=== PATIENT | female | born 1965 | race African-American/Black ===

== ENCOUNTER 2017-07-08 05:58 | Emergency (ER) | payer MEDICARE, MEDICAID ==
[2017-07-08 07:10] LABS: Hematocrit 31.7 % (36.0-47.0); Mean Platelet Volume 7.2 fL (7.4-10.4); Red Blood Cell (RBC) Count 3.58 mill/uL (4.20-5.40); White Blood Cell (WBC) Count 4.2 thou/uL (4.8-10.8)
[2017-07-08 07:24] LABS: ALT (SGPT) Less than 7 U/L (8-55); AST (SGOT) 10 U/L (5-34); Alkaline Phosphatase 59 U/L (40-150); Anion Gap 14 mmol/L (10-20); BUN (Urea Nitrogen) 12 mg/dL (9.8-20.1); Bilirubin, Total 0.4 mg/dL (0.2-1.2); Calc. Creatinine Clearance 0 mL/min (70-130); Calcium 9.2 mg/dL (7.8-10.44); Carbon Dioxide 26 mmol/L (22-29); Chloride 107 mmol/L (98-107); Estimated GFR-MDRD Greater than 90; Globulin 3.5 g/dL (2.4-3.5); Protein, Total 6.8 g/dL (6.0-8.3)
[2017-07-08 07:42] LABS: Band 3 % (5-11); Metamyelocyte 1 % (0-0); Myelocyte 1 % (0-0); Neutrophil 60 % (42-75); Polychromasia SLIGHT = 2-3 cells (100X) (0-2/hpf)
[2017-07-08] MEDS ORDERED: Ondansetron HCl/PF 4 MG/2 ML Vial ONE (08:47)
--- NOTE | 2017-07-08 08:55 | CT ---
CONTRAST ENHANCED CTA CHEST: HISTORY: A 52-year-old with a history of radiation treatment for breast cancer, lung mets, cough for 3 weeks. FINDINGS: Contrast-enhanced CTA of the chest was performed. Two-D and 3D reconstructed images performed. Images demonstrate diffuse increased interstitial markings in the right upper lobe. Area of nodular density previously seen in the right upper lobe is again seen. There is a soft tissue mass in the right hilar region measuring approximately 3.0 x 2.5 cm, definitely larger than on previous exam fro m 02/05/17 and similar but slightly smaller than on previous exam from 06/08/17. No evidence of filling defect is seen in the pulmonary arteries to suggest pulmonary emboli. A tiny pericardial effusion is seen. There is also a tiny right pleural effusion noted. IMPRESSION: No evidence of pulmonary emboli. POS: [facility]
[2017-07-08] MEDS ORDERED: HYDROcodone/Acetaminophen 10/325 mg Tablet ONE (09:02)
[2017-07-08] MEDS ORDERED: ISOVUE-370 76%-LOCM 1 ML ONE (14:24)
== END 2017-07-08 10:15 | disposition home or self-care (01) ==
LOC: ERS 05:58
DX: J20.9 Acute bronchitis, unspecified (principal); E11.9 Type 2 diabetes mellitus without complications; I10 Essential (primary) hypertension; F41.9 Anxiety disorder, unspecified; Z79.84 Long term (current) use of oral hypoglycemic drugs; Z79.899 Other long term (current) drug therapy
CPT/HCPCS: 71275; 77014; 77412; 80053; 85025; 96374; J2405

== ENCOUNTER 2017-08-23 08:26 | Outpatient (CLI) | payer MEDICARE, MEDICAID ==
--- NOTE | 2017-08-23 14:55 | CT ---
CHEST CT WITH CONTRAST ABDOMEN CT WITH CONTRAST: Date: 08/23/17 COMPARISON: 06/08/17 and 11/04/16. CORRELATION: CT angiogram chest dated 07/08/17. TECHNIQUE: Chest and abdomen CT are performed with IV contrast. Enteric contrast was also administered. Coronal reformatted images are submitted for interpretation. FINDINGS: CHEST CT: Limited evaluation by motion degradation. No mediastinal mass, lymphadenopathy, or hematoma. Heart s ize is within normal limits. No pericardial effusion. Visualized aorta has a normal caliber. No taarh aortic fat stranding. No evidence of axillary lymphadenopathy. Right breast augmentation is noted. Trachea and central bronchi are patent. Stable 5.0 mm nodule in the left lower lobe. No nodules or m asses in the left upper lobe. Previously noted right hilar mass has decreased in size. There is a spiculated nodule in the right u pper lobe which has decreased in size, currently measuring 0.8 cm (previously measuring 1.3 cm). The re are patchy linear opacities and ground-glass opacities in the right upper lobe, middle lobe, and lower lobe, likely representing post treatment change. There is evidence of a hypodensity tracking along the major fissure, likely representing a pseudotum or, measuring 2.6 x 2.8 cm. The previously noted soft tissue density in the right mainstem bronchus has slightly decreased. Ther e is still some narrowing of the distal right mainstem bronchus. ABDOMEN CT: Liver, spleen, pancreas, and right adrenal gland have appropriate enhancement. There is a nodule ass ociated with left adrenal gland. Nodularity has developed since examinations earlier this year ( [email or web address]). Gallbladder is surgically absent. Symmetric enhancement of the kidneys. No obstructive uropathy. No mesenteric mass, lymphadenopathy, free air, or free fluid. Alimentary canal is unremarkable. Normal caliber appendix. There are no lytic or blastic lesions in the osseous structures. IMPRESSION: 1. Interval decrease in size of a right hilar and mediastinal mass. There is improved aeration of t he previously obstructing right mainstem bronchus. Nodularity in the right and left lobe as detailed above. 2. Interval development of a nodule in the left adrenal gland, as detailed above. The possibility o f adrenal metastatic lesion cannot be excluded. PET imaging may be beneficial. POS: [facility]
[2017-08-23] MEDS ORDERED: Iopamidol 370 76% 50 ML VIAL FS ONE (15:43)
[2017-08-23] MEDS ORDERED: Iopamidol 370 76% 100 ML VIAL ONE (15:43)
== END 2017-08-23 08:27 | disposition home or self-care (01) ==
LOC: CT 08:26
PROVIDERS: ATTEND Internal Medicine Hematology & Oncology
DX: C50.311 Malignant neoplasm of lower-inner quadrant of right female breast (principal); C78.39 Secondary malignant neoplasm of other respiratory organs; Z85.3 Personal history of malignant neoplasm of breast
CPT/HCPCS: 71260; 74160

== ENCOUNTER 2017-10-28 10:39 | Emergency (ER) | payer MEDICARE ==
[2017-10-28 11:58] LABS: #Eosinphils 0.1 thou/uL (0.0-0.7); #Monocytes 0.6 thou/uL (0.11-0.59); #Neutrophils 4.5 thou/uL (1.40-6.50); %Basophils 0.5 % (0.0-1.0); %Lymphocytes 16.4 % (21.0-51.0); %Monocytes 9.4 % (0.0-10.0); %Neutrophils 72.8 % (42.0-75.0); Hemoglobin 10.5 g/dL (12.0-16.0); Mean Corpuscular HGB CONC 31.8 g/dL (32.0-36.0); Mean Corpuscular Hemoglobin 27.5 pg (27.0-31.0); Mean Corpuscular Volume 86.4 fl (81.0-99.0); Mean Platelet Volume 6.7 fL (7.4-10.4); Platelet Count 238 thou/uL (130-400); RBC Distribution Width 14.4 % (11.5-14.5); Red Blood Cell (RBC) Count 3.83 mill/uL (4.20-5.40); White Blood Cell (WBC) Count 6.2 thou/uL (4.8-10.8)
--- NOTE | 2017-10-28 12:10 | RAD ---
TWO VIEW CHEST: HISTORY: Chest pain. COMPARISON: Correlation is made to recent CT of 08/23/17. FINDINGS: The frontal view is distorted due to poor positioning and rotation. MediPort catheter remains in pos ition. There is abnormal opacity in the right mid posterior lung field which may correspond to the m ass density seen on recent CT of 08/23/17. I cannot exclude associated infiltrate in this region. The left lung appears clear. IMPRESSION: Opacity in the right mid posterior lung probably corresponds to the mass density seen on recent CT. New infiltrate in this region cannot be excluded. POS: [facility]
[2017-10-28 12:19] LABS: ALT (SGPT) 9 U/L (8-55); AST (SGOT) 14 U/L (5-34); Albumin 3.7 g/dL (3.5-5.0); Alkaline Phosphatase 80 U/L (40-150); Anion Gap 13 mmol/L (10-20); BUN (Urea Nitrogen) 12 mg/dL (9.8-20.1); Bilirubin, Total 0.3 mg/dL (0.2-1.2); Calc. Creatinine Clearance 0 mL/min (70-130); Calcium 9.3 mg/dL (7.8-10.44); Carbon Dioxide 23 mmol/L (22-29); Chloride 102 mmol/L (98-107); Estimated GFR-MDRD 89; Globulin 3.7 g/dL (2.4-3.5); Glucose 137 mg/dL (70-105); Protein, Total 7.4 g/dL (6.0-8.3); Sodium 134 mmol/L (136-145)
[2017-10-28 12:22] LABS: CKMB 0.9 ng/mL (0-6.6); Troponin I Less than 0.010 ng/mL (< 0.028)
[2017-10-28] MEDS ORDERED: Lorazepam 2 MG/ML VIAL ONE (13:31)
--- NOTE | 2017-10-28 15:00 | CT ---
CTA OF CHEST WITH 3D VOLUME RENDERING: Comparison: 08-23-17 CT chest. Indication: Chest pain. FINDINGS: There is extensive consolidation of the right lung with a dense region of opacity containing air bron chograms as well as multifocal surrounding interstitial and alveolar opacification of the right lung. There is no definite filling defect of the pulmonary arterial system to indicate an associated pulmo nary embolus. The prior rounded density of the right lung is obscured by the extensive region of cons olidation. There is confluent increased density of the mediastinum. Mild pericardial fluid is present . There is no evidence of a significant effusion or evidence of discrete pneumothorax. Right breast i mplant is present. The thoracic aorta is normal in caliber. There is a right internal jugular venous catheter. IMPRESSION: 1. Extensive consolidation of the right lung. This does obscure the site of patient's previously diag nosed mass. Therefore, continued follow up upon resolution of acute symptoms is necessary for continu ed evaluation as underlying malignancy is not excluded. 2. There is no large, central filling defect to indicate pulmonary embolus. 3. Mild pericardial effusion. POS: [facility]
[2017-10-28] MEDS ORDERED: ISOVUE-370 76%-LOCM 1 ML ONE (16:30)
--- NOTE | 2017-11-06 21:36 | EKG ---
Test Reason : Blood Pressure : / mmHG Vent. Rate : 093 BPM Atrial Rate : 093 BPM P-R Int : 130 ms QRS Dur : 066 ms QT Int : 366 ms P-R-T Axes : 026 033 027 degrees QTc Int : 455 ms Normal sinus rhythm Normal ECG Confirmed by PALAK SONG, SHAYE ([id number]), art editor KULDEEP PAUL ([id number]) on 11/06/2017 9:36:08 PM Referred By: Confirmed By:SHAYE CID MD
== END 2017-10-28 15:32 | disposition home or self-care (01) ==
LOC: ERS 10:39
DX: R07.9 Chest pain, unspecified (principal); F41.9 Anxiety disorder, unspecified; I11.0 Hypertensive heart disease with heart failure; I50.9 Heart failure, unspecified; Z79.899 Other long term (current) drug therapy; E11.9 Type 2 diabetes mellitus without complications; Z79.84 Long term (current) use of oral hypoglycemic drugs
CPT/HCPCS: 36416; 71046; 71275; 80053; 82553; 83880; 84484; 85025; 85379; 93005; 96374; J2060

== ENCOUNTER 2017-11-18 09:42 | Emergency (ER) | payer MEDICARE, MEDICAID ==
[2017-11-18] MEDS ORDERED: Lidocaine 1% w/Epinephrine 1:100K 20 ML VIAL ONE (10:28)
[2017-11-18] MEDS ORDERED: Amoxicillin/Potassium Clav 875 MG TAB ONE (11:38)
== END 2017-11-18 11:47 | disposition home or self-care (01) ==
LOC: SCSER 09:42
DX: L02.213 Cutaneous abscess of chest wall (principal); E11.9 Type 2 diabetes mellitus without complications; I10 Essential (primary) hypertension; F41.9 Anxiety disorder, unspecified
CPT/HCPCS: 10060; 88305; 88341; 88342; J2001

== ENCOUNTER 2017-11-19 10:46 | Emergency (ER) | payer MEDICARE, MEDICAID | END 2017-11-19 11:50 | disposition home or self-care (01) | LOC: SCSER 10:46 | DX: Z48.817 Encounter for surgical aftercare following surgery on the skin and subcutaneous tissue (principal); E11.9 Type 2 diabetes mellitus without complications; I10 Essential (primary) hypertension; F41.9 Anxiety disorder, unspecified | CPT/HCPCS: 99282 ==

== ENCOUNTER 2017-11-21 22:36 | Emergency (ER) | payer MEDICARE, MEDICAID ==
--- NOTE | 2017-11-21 23:27 | RAD ---
CHEST TWO VIEWS: Comparison: 10-28-17 History: Cough and congestion. FINDINGS: Right sided Mediport catheter is again noted. Elevation of the right hemidiaphragm and pleural and pa renchymal changes in the right lung are stable. IMPRESSION: No acute process. POS: [facility]
[2017-11-21 23:41] LABS: ALT (SGPT) 8 U/L (8-55); AST (SGOT) 11 U/L (5-34); Albumin 3.6 g/dL (3.5-5.0); Alkaline Phosphatase 83 U/L (40-150); Anion Gap 14 mmol/L (10-20); BUN (Urea Nitrogen) 15 mg/dL (9.8-20.1); Bilirubin, Total 0.3 mg/dL (0.2-1.2); CK (CPK) 86 U/L (29-168); Calc. Creatinine Clearance 0 mL/min (70-130); Calcium 9.4 mg/dL (7.8-10.44); Carbon Dioxide 26 mmol/L (22-29); Chloride 98 mmol/L (98-107); Estimated GFR-MDRD 90; Glucose 76 mg/dL (70-105); Protein, Total 7.6 g/dL (6.0-8.3); Sodium 135 mmol/L (136-145)
[2017-11-21 23:49] LABS: Eosinophils 1 % (0-10); Hemoglobin 10.8 g/dL (12.0-16.0); Lymphocytes 30 % (21-51); MDiff Complete? YES; Mean Corpuscular HGB CONC 33.2 g/dL (32.0-36.0); Mean Corpuscular Hemoglobin 29.2 pg (27.0-31.0); Mean Corpuscular Volume 87.9 fl (81.0-99.0); Mean Platelet Volume 6.4 fL (7.4-10.4); Metamyelocyte 1 % (0-0); Monocytes 16 % (0-10); Neutrophil 52 % (42-75); PLT Morphology Comment Appears Adequate; Platelet Count 237 thou/uL (130-400); RBC Distribution Width 13.5 % (11.5-14.5); Red Blood Cell (RBC) Count 3.69 mill/uL (4.20-5.40); White Blood Cell (WBC) Count 7.8 thou/uL (4.8-10.8)
[2017-11-22 00:05] LABS: Bilirubin Negative (Negative); Blood, Urine Negative (Negative); Clarity CLEAR (Clear); Glucose, Urine (Dipstick) Negative (Negative); Leukocyte Negative (Negative); Nitrite Negative (Negative); Protein, Urine (Dipstick) Negative (Neg-Trace); Specific Gravity, Urine 1.009 (1.002-1.036); Urobilinogen 0.2 mg/dL (0.2-1.0)
[2017-11-22] MEDS ORDERED: Potassium Chloride 20 MEQ TAB ONE (00:34)
== END 2017-11-22 02:22 | disposition home or self-care (01) ==
LOC: ERS 22:36
DX: R05 Cough (principal); R55 Syncope and collapse; E11.9 Type 2 diabetes mellitus without complications; I10 Essential (primary) hypertension; F41.9 Anxiety disorder, unspecified; Z79.891 Long term (current) use of opiate analgesic; Z79.84 Long term (current) use of oral hypoglycemic drugs
CPT/HCPCS: 36415; 71046; 80053; 81003; 82550; 84146; 85025; 93005; 96360; 96361

== ENCOUNTER 2017-11-23 08:05 | Outpatient (CLI) | payer MEDICARE, MEDICAID ==
--- NOTE | 2017-11-23 10:22 | CT ---
CT CHEST WITH IV CONTRAST CT ABDOMEN WITH IV CONTRAST CT PELVIS WITH IV CONTRAST: HISTORY: Breast cancer with lung mets. COMPARISON: CT chest, abdomen, and pelvis dated 08/23/[address] pulmonary angiogram of 10/28/17. FINDINGS: No mediastinal, axillary, or left hilar significant lymphadenopathy is seen. There is consolidative change in the right lung which is stable since 10/28/16. The 5 mm parenchymal nodule in the superior segment of the left lower lobe is stable since 10/28/17, t sigrid new since 08/23/17. No pleural or pericardial effusions are identified. Right-sided breast im plant is again noted. The small soft tissue nodule anterior to the sternum noted on the exam of 10/28 is not seen on the current exam. On the current study in the same region, there is a 5 x 2.6 x 4 .5 cm density containing air, soft tissue, and a small amount of fluid which connects to the skin. T here is surrounding inflammatory change in the subcutaneous fat. This may represent an abscess (with and without packing material). The liver, spleen, pancreas, right adrenal gland, and kidneys are normal. The 1.5 cm left adrenal no dule is stable since 08/23/17. The patient is post cholecystectomy. No free air, free fluid, or lym phadenopathy is seen in the abdomen or pelvis. The small bowel loops are not abnormally dilated. There is no evidence of aneurysmal dilatation of t he thoracoabdominal aorta. There are degenerative changes in the spine. No osteolytic or osteoblast ic lesions are seen. IMPRESSION: 1. Probable abscess in the subcutaneous fat of the presternal region in the chest. 2. Consolidative changes in the right lung and lung nodule in the left lung are stable since 10/28/17 . 3. Stable appearance of the abdomen and pelvis since 08/23/17. Report was called over the telephone to Dr. Adelaida Tay at 9:20 a.m. CODE CR POS: [facility]
[2017-11-23] MEDS ORDERED: ISOVUE-370 76%-LOCM 1 ML ONE (12:38)
== END 2017-11-23 08:06 | disposition home or self-care (01) ==
LOC: CT 08:05
PROVIDERS: ATTEND Internal Medicine Hematology & Oncology
DX: C78.39 Secondary malignant neoplasm of other respiratory organs (principal); C50.919 Malignant neoplasm of unspecified site of unspecified female breast; R91.8 Other nonspecific abnormal finding of lung field
CPT/HCPCS: 71260; 74177

== ENCOUNTER 2017-12-02 11:29 | Outpatient (CLI) | payer MEDICARE, MEDICAID ==
--- NOTE | 2017-12-02 12:58 | MRI ---
MRI BRAIN WITH AND WITHOUT CONTRAST: Technique: Multiplanar, multisequential imaging of brain obtained. Post contrast images were obtained after administration of 18 cc MultiHance IV. History: Breast cancer. New onset headaches. Intermittent confusion. Assess for metastasis. Comparison: MRI brain dated 04-28-15. That exam showed no abnormality. FINDINGS: On today's exam, the ventricles remain normal size and position. There is abnormal vasogenic edema no ariel in the right parietal lobe and right temporal lobe on the FLAIR sequence. No evidence of restrict ed diffusion. On post contrast images, there is an enhancing mass in the posterior right parietal lobe which measur es 3.2 cm in AP dimension. This is producing significant surrounding vasogenic edema as seen on FLAIR sequence. There is a second enhancing mass in the peripheral right temporal lobe measuring 1.3 cm in AP dimensi on. This produces mild surrounding edema as seen on FLAIR sequence. There is another tiny enhancing nodule in the superior right frontal lobe measuring 5 mm. No signific ant edema is associated with this tiny nodule. Arterial structures show normal flow voids. The nasal sinuses and mastoids appear clear. IMPRESSION: There are three enhancing masses seen in the right cerebral hemisphere consistent with metastasis. Th e largest in the right parietal lobe is associated with significant surrounding vasogenic edema. The middle sized lesion in the right temporal lobe also shows mild surrounding edema as described above. POS: [facility]
== END 2017-12-02 11:30 | disposition home or self-care (01) ==
LOC: MRI 11:29
PROVIDERS: ATTEND Radiology Radiation Oncology
DX: C50.919 Malignant neoplasm of unspecified site of unspecified female breast (principal); R51 Headache; G93.6 Cerebral edema; G93.89 Other specified disorders of brain
CPT/HCPCS: 70553; J1642

== ENCOUNTER 2017-12-05 15:10 | Emergency (ER) | payer MEDICARE, MEDICAID ==
[~2017-12-05 15:10] MED LIST: ISOVUE-370 76%-LOCM 1 ML ONE
--- NOTE | 2017-12-05 18:59 | RAD ---
PORTABLE CHEST; Date: 12/05/17 HISTORY: Chest pain. Cough. Comparison made to recent chest film of 11/21/[address] of 11/23/17. FINDINGS: Infiltrate in the right mid lung is again noted and was seen on chest film which suggested infectious or inflammatory infiltrate. There is shift of the mediastinum to the right, also indicating volume l oss. This is also a stable finding. The left lung remains clear. IMPRESSION: Right lung infiltrate and shift of mediastinum to the right. There has been no significant interval c hange when compared to the recent CT of 11/23/17. POS: [facility]
[2017-12-05 19:09] LABS: #Monocytes 0.4 thou/uL (0.11-0.59); #Neutrophils 5.4 thou/uL (1.40-6.50); %Basophils 0.1 % (0.0-1.0); %Eosinophils 0.2 % (0.0-10.0); %Lymphocytes 14.7 % (21.0-51.0); %Monocytes 5.8 % (0.0-10.0); %Neutrophils 79.2 % (42.0-75.0); Hemoglobin 11.4 g/dL (12.0-16.0); Mean Corpuscular HGB CONC 32.7 g/dL (32.0-36.0); Mean Corpuscular Hemoglobin 28.8 pg (27.0-31.0); Mean Corpuscular Volume 88.1 fl (81.0-99.0); Platelet Count 316 thou/uL (130-400); RBC Distribution Width 13.1 % (11.5-14.5); Red Blood Cell (RBC) Count 3.95 mill/uL (4.20-5.40); White Blood Cell (WBC) Count 6.8 thou/uL (4.8-10.8)
[2017-12-05 19:16] LABS: INR-International Normal Ratio 1.1; PTT 29.8 SEC (22.9-36.1); Prothrombin Time 14.1 SEC (12.0-14.7)
[2017-12-05 19:17] LABS: D-Dimer Test 0.4 *mcg/mL (0.27-0.43)
[2017-12-05] MEDS ORDERED: Lorazepam 2 MG/ML VIAL ONE (19:23)
[2017-12-05] MEDS ORDERED: Metoclopramide HCl 10 MG/2 ML VIAL ONE (19:24)
[2017-12-05] MEDS ORDERED: diphenhydrAMINE 50 MG/ML VIAL ONE (19:24)
[2017-12-05 19:32] LABS: ALT (SGPT) 10 U/L (8-55); AST (SGOT) 11 U/L (5-34); Albumin 3.9 g/dL (3.5-5.0); Alkaline Phosphatase 88 U/L (40-150); Anion Gap 15 mmol/L (10-20); BUN (Urea Nitrogen) 27 mg/dL (9.8-20.1); Bilirubin, Total 0.2 mg/dL (0.2-1.2); Calc. Creatinine Clearance 0 mL/min (70-130); Calcium 9.9 mg/dL (7.8-10.44); Carbon Dioxide 23 mmol/L (22-29); Chloride 99 mmol/L (98-107); Estimated GFR-MDRD 56; Globulin 4.1 g/dL (2.4-3.5); Glucose 153 mg/dL (70-105); Lipase 26 U/L (8-78); Potassium 3.8 mmol/L (3.5-5.1); Sodium 133 mmol/L (136-145)
--- NOTE | 2017-12-05 22:37 | CT ---
CT PULMONARY ANGIO CHEST WITH IV CONTRAST: Date: 12/05/17 Multiple axial tomograms obtained through the chest with IV enhancement in pulmonary angio phase with multiplanar reconstruction and 3D postprocessing. HISTORY: Headache, chest pain, and cough. Comparison made to recent CT angio chest of 10/28/17. The exam revealed extensive consolidation in th e right lung. FINDINGS: Pulmonary arteries are well opacified. No evidence of pulmonary embolus. There continues to be dense consolidation in the right upper lobe with involvement also seen in the r ight lower lobe and probable middle lobe. Shift of the mediastinum to the right may represent prior l obectomy procedure. Confluent density in the right hilar region may be due to infiltrate or neoplasm. The right lung findings have not significantly changed when compared to the 10/28/17 exam. Left otoniel r lymph nodes are mildly prominent and also stable. Right deformities seen on the right are consistent with old fractures and/or surgery. IMPRESSION: 1. Volume loss in the right lung with shift of the mediastinum to the right. Confluent consolidation in the right mid lung extending to the right hilum is again noted, unchanged from 10/28/17. 2. No evidence of pulmonary embolus. POS: [facility]
== END 2017-12-05 22:56 | disposition home or self-care (01) ==
LOC: ERS 15:10
DX: R51 Headache (principal); R07.9 Chest pain, unspecified; G89.29 Other chronic pain; E11.9 Type 2 diabetes mellitus without complications; I10 Essential (primary) hypertension; F41.9 Anxiety disorder, unspecified; Z79.84 Long term (current) use of oral hypoglycemic drugs; Z79.899 Other long term (current) drug therapy
CPT/HCPCS: 36415; 71045; 71275; 80053; 83690; 85025; 85379; 85610; 85730; 96365; 96375; J1200; J1642; J2060; J2765

== ENCOUNTER 2017-12-22 11:35 | Inpatient (IN) | payer MEDICARE, MEDICAID ==
--- NOTE | 2017-12-22 13:05 | RAD ---
AP CHEST: History: Cough. Hypotension. Date: 12-22-17 Comparison: 12-05-17 FINDINGS: AP chest demonstrates volume loss in the right hemithorax with shift of the mediastinum from left to right. Areas of scarring seen in the right midlung. A right subclavian Mediport catheter is in place. The left lung is well aerated. IMPRESSION: Stable area of scar or opacity in the right midlung, not significantly changed since the previous exa m from 12-05-17. No acute interval changes or abnormalities seen. POS: [facility]
[2017-12-22 13:20] LABS: Bilirubin Negative (Negative); Blood, Urine Negative (Negative); Glucose, Urine (Dipstick) Negative (Negative); Leukocyte Trace (Negative); Nitrite Negative (Negative); Protein, Urine (Dipstick) Negative (Neg-Trace); Urobilinogen 0.2 mg/dL (0.2-1.0)
[2017-12-22 13:22] LABS: Clarity CLEAR (Clear)
[2017-12-22 13:23] LABS: Other Microscopic Description Less than 2 mL rec'd
[2017-12-22 13:36] LABS: #Eosinphils 0.1 thou/uL (0.0-0.7); #Lymphocytes 1.4 thou/uL (1.20-3.40); #Monocytes 1.3 thou/uL (0.11-0.59); #Neutrophils 9.4 thou/uL (1.40-6.50); %Basophils 0.2 % (0.0-1.0); %Eosinophils 1.2 % (0.0-10.0); %Lymphocytes 11.4 % (21.0-51.0); %Monocytes 10.7 % (0.0-10.0); %Neutrophils 76.5 % (42.0-75.0); Hemoglobin 12.3 g/dL (12.0-16.0); Mean Corpuscular HGB CONC 32.4 g/dL (32.0-36.0); Mean Corpuscular Hemoglobin 29.1 pg (27.0-31.0); Mean Corpuscular Volume 89.7 fl (81.0-99.0); Mean Platelet Volume 6.6 fL (7.4-10.4); Platelet Count 198 thou/uL (130-400); RBC Distribution Width 15.4 % (11.5-14.5); Red Blood Cell (RBC) Count 4.25 mill/uL (4.20-5.40); White Blood Cell (WBC) Count 12.2 thou/uL (4.8-10.8)
[2017-12-22 13:59] LABS: ALT (SGPT) 22 U/L (8-55); AST (SGOT) 14 U/L (5-34); Albumin 3.1 g/dL (3.5-5.0); Alkaline Phosphatase 90 U/L (40-150); Anion Gap 13 mmol/L (10-20); BUN (Urea Nitrogen) 25 mg/dL (9.8-20.1); Bilirubin, Total 0.3 mg/dL (0.2-1.2); Calc. Creatinine Clearance 0 mL/min (70-130); Carbon Dioxide 24 mmol/L (22-29); Chloride 100 mmol/L (98-107); Estimated GFR-MDRD 65; Globulin 3.2 g/dL (2.4-3.5); Glucose 94 mg/dL (70-105); Lipase 23 U/L (8-78); Magnesium 2.2 mg/dL (1.6-2.6); Potassium 4.7 mmol/L (3.5-5.1); Protein, Total 6.3 g/dL (6.0-8.3); Sodium 132 mmol/L (136-145)
[2017-12-22 14:03] LABS: CKMB 1.4 ng/mL (0-6.6)
[2017-12-22 14:09] LABS: Troponin I Less than 0.010 ng/mL (< 0.028)
[2017-12-22] MEDS ORDERED: Lorazepam 0.5 MG TAB PO SCH (15:45)
[2017-12-22] MEDS ORDERED: HYDROcodone/Acetaminophen 10/325 mg Tablet ONE (16:09)
[2017-12-22] MEDS ORDERED: ISOVUE-370 76%-LOCM 1 ML ONE (16:35)
[2017-12-22 18:27] LABS: Troponin I 0.302 ng/mL (< 0.028)
[2017-12-22] MEDS ORDERED: Dextrose 50% Abboject 50 ML SYRINGE SLOW IVP PRN (18:56)
[2017-12-22] MEDS ORDERED: Dextrose 5% in Water 1,000 ML IV PRN (18:56)
[2017-12-22] MEDS ORDERED: Famotidine/PF 20 mg/2ml Vial SLOW IVP SCH (21:00)
[2017-12-22 21:19] LABS: Troponin I Less than 0.010 ng/mL (< 0.028)
--- NOTE | 2017-12-22 22:38 | CT ---
CT CHEST WITH CONTRAST CT ABDOMEN AND PELVIS WITH CONTRAST 12/22/17 Multiple axial tomograms obtained through the chest, abdomen and pelvis with IV enhancement. Oral con trast was administered. INDICATIONS: Chest pain. Assess for aortic dissection. Generalized abdominal pain with nausea. CT CHEST: There is confluent alveolar infiltrate/consolidation involving what appears to be the posterior segme nt of the right upper lobe. There may be some right middle lobe involvement as well. There are air br onchograms through this area of dense consolidation. Shift of the mediastinum to the right is consist ent with volume loss in the right chest. The left lung appears clear. Mediastinum is otherwise unrema rkable. There is a right breast prosthesis. IMPRESSION: Dense infiltrate and atelectasis involving posterior right upper lobe and possibly portions of the ri ght middle lobe. Pneumonia and atelectasis would be suspected. There is shift of the mediastinum to the right indicating volume loss. CT ABDOMEN AND PELVIS: Liver, spleen, and pancreas are unremarkable. Adrenal glands and kidneys unremarkable. Small bowel loops appear normal. Appendix is identified and appears unremarkable. The thoracic and abdominal aorta appear unremarkable . There is no evidence of aortic dissection. No evidence of aneurysmal dilatation. No evidence of adenopathy. Images through the pelvis show unremarkable uterus and adnexa. The urinary bladder is mildly distended. IMPRESSION: No acute abdominal findings. POS: [facility]
[2017-12-22] MEDS: metroNIDAZOLE 500 MG in Premix Bag 1 BAG IVPB SCH (23:11)
[2017-12-22] MEDS: Heparin 5,000 UNITS/ML VIAL SC SCH (23:11)
[2017-12-23] MEDS ORDERED: Sodium Chloride 0.9% 1,000 ML IV SCH (01:30)
[2017-12-23] MEDS: metroNIDAZOLE 500 MG in Premix Bag 1 BAG IVPB SCH ×2 (03:04→08:31)
[2017-12-23 05:24] LABS: Hemoglobin A1c 5.4 % (4.0-6.0)
[2017-12-23 05:37] LABS: #Eosinphils 0.1 thou/uL (0.0-0.7); #Lymphocytes 0.9 thou/uL (1.20-3.40); #Monocytes 1.2 thou/uL (0.11-0.59); #Neutrophils 8.4 thou/uL (1.40-6.50); %Basophils 0.4 % (0.0-1.0); %Eosinophils 0.8 % (0.0-10.0); %Monocytes 11.6 % (0.0-10.0); %Neutrophils 79.2 % (42.0-75.0); Hemoglobin 10.3 g/dL (12.0-16.0); Mean Corpuscular HGB CONC 31.4 g/dL (32.0-36.0); Mean Corpuscular Hemoglobin 28.6 pg (27.0-31.0); Mean Corpuscular Volume 91.1 fl (81.0-99.0); Mean Platelet Volume 6.6 fL (7.4-10.4); Platelet Count 159 thou/uL (130-400); RBC Distribution Width 15.5 % (11.5-14.5); Red Blood Cell (RBC) Count 3.61 mill/uL (4.20-5.40); White Blood Cell (WBC) Count 10.7 thou/uL (4.8-10.8)
[2017-12-23 05:52] LABS: Anion Gap 14 mmol/L (10-20); BUN (Urea Nitrogen) 14 mg/dL (9.8-20.1); Calc. Creatinine Clearance 108 mL/min (70-130); Calcium 8.2 mg/dL (7.8-10.44); Carbon Dioxide 20 mmol/L (22-29); Chloride 106 mmol/L (98-107); Estimated GFR-MDRD 84; Glucose 232 mg/dL (70-105); Potassium 4.9 mmol/L (3.5-5.1); Sodium 135 mmol/L (136-145)
[2017-12-23] MEDS: Heparin 5,000 UNITS/ML VIAL SC SCH ×3 (08:32→20:25)
--- NOTE | 2017-12-23 09:13 | HP ---
CHIEF COMPLAINT: Hypoglycemia. HISTORY OF PRESENT ILLNESS: This is a 52-year-old female with a known history of diabetes, hyperlipidemia, hypertension, metastatic breast cancer, currently undergoing radiation, who presented with a chief complaint of hypoglycemia. It appears that the patient checked her blood sugar upon awakening this morning and found it to be 40. She subsequently went to see her primary care provider and was sent from that facility to our emergency department because she was also noted to be hypotensive with systolic blood pressures in the 70s. At the time of my evaluation, the patient has been seen and evaluated in the Emergency Department. Her blood sugar has been corrected with amps of D50. She has also been bolused 2 liters IV fluid with now systolic blood pressures in the 90s-110s. The patient states that she currently feels a lot better. She describes feeling "woozy and crushed" with her low blood sugar and low blood pressure. The patient denies any prior similar episodes. The patient also endorses a sudden onset of abdominal pain that then was accompanied by chest pain as well during this initial episode. She still has some abdominal discomfort, but it is nothing like the initial pain described above. REVIEW OF SYSTEMS: As per HPI. CONSTITUTIONAL: No recent fevers, chills. The patient states that she has had a 30 pound weight loss over the last 1-2 years, but none within the last 2-3 weeks. HEENT: As per above. The patient states that she has known brain tumors and that is why she has difficult to understand speech which is often stuttering. Otherwise no headaches, dizziness or vision changes. CARDIOVASCULAR: As described above. No left-sided arm numbness or tingling. She describes it as a substernal pressure without diaphoresis. RESPIRATORY: Some shortness of breath, only with the pain. Currently, the patient denies any active shortness of breath. No new recent cough, no recent upper respiratory infection. GASTROINTESTINAL: No nausea, no vomiting. The patient has been having a retained appetite. No recent difficulties with appetite, diarrhea or constipation. Abdominal pain is improved, but she has not needed to evacuate her bowels for the improvement. MUSCULOSKELETAL: No new myalgias or arthralgias. Review of systems otherwise negative. PAST MEDICAL HISTORY: As per above. 1. Diabetes. 2. Hypertension. 3. Obesity. 4. Breast cancer with metastases including to her brain x3. 5. Status post mastectomy of right breast. 6. Status post radiation 2018 this year. 7. Status post chemotherapy, the last dose in 2017. PAST SURGICAL HISTORY: Status post cholecystectomy, status post hysterectomy, status post MediPort placement, status post "bladder repair" 2 years ago, status post hernia repair x2. FAMILY HISTORY: Includes diabetes, hypertension, coronary artery disease. SOCIAL HISTORY: No alcohol, no tobacco, no illicit drug use. CODE STATUS: This patient states that her "baby sister" is her medical decision maker if she is unable to make her own medical decisions. She states that she wishes to be full code including CPR, ventilation if required, and shocks. She does state that she would not want to be "maintained on a ventilator" and that her younger sister is aware of this. HOME MEDICATIONS: Please see the EMR for full details. The patient denies any changes in her home medication regimen over the last month. Denies any changes or additions or subtractions of any [id number], herbal supplements, vitamins that she has listed. ALLERGIES: GADOLINIUM which causes a mild degree of emesis. PHYSICAL EXAMINATION: VITAL SIGNS: Temperature of 100.1, heart rate of 106, respirations 24, satting 96% on room air, blood pressure 112/57. GENERAL: The patient is awake, alert, oriented x3, no acute distress, lying in the bed. She is a reasonable historian; however, she is at times very difficult to understand because of her stuttering speech which the patient states is secondary to her known brain tumors. HEENT: Slightly dry mucous membranes. Equal ocular motions are intact. Normocephalic, atraumatic. CARDIOVASCULAR: S1, S2. No murmurs, rubs or gallops. Generally soft heart tones. Pulses 2+ bilateral upper extremities, no pitting pedal edema. RESPIRATORY: No wheezes, rales or rhonchi, clear to auscultation bilaterally. Marginal air movement. ABDOMEN: Obese, positive bowel sounds, soft, tender to palpation throughout without focality. No guarding. MUSCULOSKELETAL: Moving all 4 extremities equally. LABORATORY DATA AND IMAGING: WBC 12.2, hemoglobin 12.3, hematocrit 38.1, platelets 198. Sodium 132, potassium 4.7, chloride 100, bicarbonate 24, BUN 25 , creatinine 1.07, glucose 94. Hemoglobin A1c is 5.4. Lactic acid 1.6, magnesium 2.2, total bilirubin 0.3, AST 14, ALT 22. CK-MB is 1.4. Troponins initial 0.01, troponin secondary is 0.302. BNP natriuretic peptide is 49.4. Lipase was 23. UA is significant for trace leukocyte esterase. ASSESSMENT AND PLAN: A 52-year-old female who initially presents with abdominal pain, hypotension, and hypoglycemia, all of acute onset. 1. Hypoglycemia, symptomatic. The patient will need to be closely monitored in terms of her glucose levels and D5 if needed and an amp of D50 as needed, initiate hypoglycemia protocol. Hold patient's home anti-hyperglycemic regimen. 2. Hypotension, resolved status post IV fluid bolus. I will continue to hold the patient's home antihypertensive regimen. Close monitoring as well. 3. Abdominal pain, unclear how these are all currently correlated. We will obtain a CT of the abdomen given the concomitant hypoglycemia and hypotension. We will also rule out dissection in this female who does have risk factors. Also, concern for possibility of colitis particularly in the setting of an elevated white count and elevated body temperature with empiric ciprofloxacin, empiric metronidazole. 4. Elevated troponin. Initial troponin was negative. Second troponin was elevated. We will continue to trend the troponins. EKG has been unremarkable and does not signify any changes consistent with a STEMI at this point in time. Echocardiogram in the morning. Currently, she is hemodynamically stable. 5. History of breast cancer with metastases to the brain, unclear the degree of contribution to her current presentation. That being said, the patient states that she was previously on steroids that she states for approximately 1 week, but she has been off of those steroids for a week. While it would be somewhat abnormal for her to present today with adrenal insufficiency, will go ahead and check an a.m. cortisol in case that is related to her presentation. 6. Diet. Cardiac. 7. Activity: Out of bed as tolerated. 8. Deep venous thrombosis prophylaxis, heparin. We will admit the patient to Medical/Surgical with telemetry. Thank you for asking me to care for the patient. She will be full code as discussed above. With questions or concerns, please contact me at [facility]. RITA
[2017-12-23] MEDS: HYDROcodone/Acetaminophen 10/325 mg Tablet PO PRN ×2 (09:44→20:24)
[2017-12-23] MEDS: Famotidine 40 MG/4 ML VIAL SLOW IVP SCH ×2 (09:54→23:55)
[2017-12-23] MEDS: metFORMIN 500 MG TAB PO SCH (16:16)
[2017-12-23] MEDS: Diabetic Tussin 200 MG/10 ML UDCUP PO PRN ×2 (17:21→20:25)
[2017-12-23] MEDS: Lorazepam 0.5 MG TAB PO PRN (23:47)
--- NOTE | 2017-12-23 23:48 | PDOC.PN ---
- Subjective Encounter Start Date: 12/23/17 Encounter Start Time: 14:00 Subjective: nsg notes rev, leandro ovn, pt no new c/o, pain improved, dtr at bedside -: still c/o cough but abd no longer painful - Objective Resuscitation Status: Resuscitation Status FULL:Full Resuscitation Vital Signs & Weight: Vital Signs (12 hours) Temp Pulse Resp BP Pulse Ox 12/23/17 20:00 99.4 F 115 H 22 H 113/71 98 12/23/17 15:35 98.8 F 91 22 H 105/58 L 98 Weight Admit Weight 199 lb 6.4 oz Weight 199 lb 12.8 oz I&O: 12/22/17 12/23/17 12/24/17 06:59 06:59 06:59 Intake Total 600 Balance 600 Result Diagrams: 12/24/17 04:45 12/24/17 04:45 Additional Labs: Accuchecks 12/23/17 12/23/17 12/23/17 22:04 20:03 18:49 POC Glucose 233 H 290 H 225 H 12/23/17 12/23/17 12/23/17 16:42 14:05 09:59 POC Glucose 232 H 287 H 284 H 12/23/17 12/23/17 12/23/17 08:23 05:51 03:40 POC Glucose 263 H 242 H 203 H 12/23/17 01:17 POC Glucose 187 H Phys Exam - Physical Examination Constitutional: NAD HEENT: moist MMs, sclera anicteric Neck: no nodes Respiratory: no wheezing, no rales, no rhonchi, clear to auscultation bilateral Cardiovascular: RRR, no significant murmur, no rub Gastrointestinal: soft, non-tender, positive bowel sounds Musculoskeletal: pulses present Neurological: moves all 4 limbs Psychiatric: normal affect, A&O x 3 Dx/Plan - Plan hypoglycemia * resolved, resume home antihypeglycemia regimen hypotension * resolved with IVF * continue home antihypertensive regimen sepsis on adm, resolved * no evid of intra-abd infection; empiric metronidazole, ciprofloxacin d/c'd * imaging does demonstrate potential PNA - trial oral levaquin * with symptomatic treatment of cough hx breast ca with mets incl mets to brain, stable diet: diabetic activit: as madhu dvt pp d/w pt possible d/c planning if continued stability and ability to tolerate home regimen and new abx Review of Systems - Medications/Allergies Allergies/Adverse Reactions: Allergies Allergy/AdvReac Type Severity Reaction Status Date / Time Gadolinium-Containing AdvReac Mild Emesis Verified 12/02/17 12:33 Contrast Medi Medications: Current Medications Hydrocodone Bitart/Acetaminophen ([place] 10/325) 2 tab PO Q4H PRN PRN Reason: Pain Last Admin: 12/23/17 09:44 Dose: 2 tab Hydrocodone Bitart/Acetaminophen ([place] 10/325) 2 tab PO QID PRN PRN Reason: Pain Last Admin: 12/24/17 02:34 Dose: 2 tab Cyclobenzaprine HCl (Flexeril) 10 mg PO TID PRN PRN Reason: Pain Dextrose/Water (Dextrose 50%) 25 gm SLOW IVP PRN PRN PRN Reason: Hypoglycemia Famotidine (Pepcid) 20 mg SLOW IVP Q12HR [facility] Last Admin: 12/23/17 23:55 Dose: Not Given Glipizide (Glucotrol Xl) 5 mg PO BID [facility] Last Admin: 12/23/17 20:25 Dose: 5 mg Glucagon (Glucagon) 1 mg IM PRN PRN PRN Reason: Hypoglycemia Guaifenesin (Robitussin Sf) 200 mg PO Q4H PRN PRN Reason: Cough Last Admin: 12/24/17 02:34 Dose: 200 mg Lisinopril/HCTZ (Prinizide 20-25) 1 tab PO DAILY [facility] Heparin Sodium (Porcine) (Heparin) 5,000 units SC TID [facility] Last Admin: 12/23/17 20:25 Dose: 5,000 units Dextrose/Water (D5w) 1,000 mls @ 0 mls/hr IV .Q0M PRN; As Directed PRN Reason: Hypoglycemia Letrozole (Femara) 2.5 mg PO DAILY [facility] Levofloxacin (Levaquin) 500 mg PO 0600 [facility] Last Admin: 12/24/17 06:37 Dose: 500 mg Lorazepam (Ativan) 0.5 mg PO TIDPRN PRN PRN Reason: Anxiety Last Admin: 12/23/17 23:47 Dose: 0.5 mg Metformin HCl (Glucophage) 500 mg PO BID-[facility] Last Admin: 12/23/17 16:16 Dose: 500 mg Sodium Chloride (Flush - Normal Saline) 10 ml IVF Q12HR [facility] Last Admin: 12/23/17 23:55 Dose: 10 ml Sodium Chloride (Flush - Normal Saline) 10 ml IVF PRN PRN PRN Reason: Saline Flush
[2017-12-24] MEDS: Diabetic Tussin 200 MG/10 ML UDCUP PO PRN ×3 (02:34→16:29)
[2017-12-24] MEDS: HYDROcodone/Acetaminophen 10/325 mg Tablet PO PRN ×4 (02:34→20:52)
[2017-12-24 05:37] LABS: #Eosinphils 0.1 thou/uL (0.0-0.7); #Monocytes 0.7 thou/uL (0.11-0.59); #Neutrophils 5.8 thou/uL (1.40-6.50); %Basophils 0.1 % (0.0-1.0); %Eosinophils 1.7 % (0.0-10.0); %Lymphocytes 12.7 % (21.0-51.0); %Monocytes 8.9 % (0.0-10.0); %Neutrophils 76.5 % (42.0-75.0); Hemoglobin 10.6 g/dL (12.0-16.0); Mean Corpuscular HGB CONC 31.8 g/dL (32.0-36.0); Mean Corpuscular Hemoglobin 28.9 pg (27.0-31.0); Mean Corpuscular Volume 90.9 fl (81.0-99.0); Platelet Count 162 thou/uL (130-400); RBC Distribution Width 14.9 % (11.5-14.5); Red Blood Cell (RBC) Count 3.66 mill/uL (4.20-5.40); White Blood Cell (WBC) Count 7.6 thou/uL (4.8-10.8)
[2017-12-24 05:47] LABS: Anion Gap 12 mmol/L (10-20); BUN (Urea Nitrogen) 14 mg/dL (9.8-20.1); Calc. Creatinine Clearance 124 mL/min (70-130); Calcium 8.7 mg/dL (7.8-10.44); Carbon Dioxide 24 mmol/L (22-29); Chloride 102 mmol/L (98-107); Estimated GFR-MDRD Greater than 90; Glucose 205 mg/dL (70-105); Potassium 4.5 mmol/L (3.5-5.1); Sodium 133 mmol/L (136-145)
[2017-12-24] MEDS: Heparin 5,000 UNITS/ML VIAL SC SCH ×3 (08:54→20:19)
[2017-12-24] MEDS: metFORMIN 500 MG TAB PO SCH ×2 (08:54→16:29)
[2017-12-24] MEDS: Lisinopril/Hydrochlorothiazide 20/25 mg Tablet PO SCH (08:54)
[2017-12-24] MEDS: Famotidine 40 MG/4 ML VIAL SLOW IVP SCH ×2 (09:05→20:19)
[2017-12-24] MEDS: Letrozole 2.5 MG TAB PO SCH (09:06)
--- NOTE | 2017-12-24 12:35 | PDOC.PN ---
- Subjective Encounter Start Date: 12/24/17 Encounter Start Time: 12:33 Patient seen at bedside. No overnight events, feels weak and anxious today. Afebrile. - Objective Resuscitation Status: Resuscitation Status FULL:Full Resuscitation MAR Reviewed: Yes Vital Signs & Weight: Vital Signs (12 hours) Temp Pulse Resp BP Pulse Ox 12/24/17 08:51 99.1 F 90 18 113/52 L 97 12/24/17 04:00 98.7 F 96 18 103/50 L 97 Weight Admit Weight 199 lb 6.4 oz Weight 199 lb 2 oz I&O: 12/23/17 12/24/17 12/25/17 06:59 06:59 06:59 Intake Total 600 Balance 600 Result Diagrams: 12/24/17 04:45 12/24/17 04:45 Additional Labs: Accuchecks 12/24/17 12/24/17 12/24/17 12:03 10:07 08:08 POC Glucose 175 H 168 H 111 H 12/24/17 12/24/17 12/24/17 05:51 04:34 02:37 POC Glucose 162 H 217 H 185 H 12/23/17 12/23/17 12/23/17 23:53 22:04 20:03 POC Glucose 277 H 233 H 290 H 12/23/17 12/23/17 12/23/17 18:49 16:42 14:05 POC Glucose 225 H 232 H 287 H 12/23/17 12/23/17 09:59 08:23 POC Glucose 284 H 263 H Phys Exam - Physical Examination Constitutional: NAD HEENT: moist MMs Neck: no JVD mild rhonchi Cardiovascular: RRR Gastrointestinal: soft Musculoskeletal: no edema Neurological: moves all 4 limbs Psychiatric: A&O x 3 Deviation from normal: Left Port in place, no erythema Dx/Plan (1) PNA (pneumonia) Code(s): J18.9 - PNEUMONIA, UNSPECIFIED ORGANISM Status: Suspected (2) Hypoglycemia Code(s): E16.2 - HYPOGLYCEMIA, UNSPECIFIED Status: Resolved (3) Pancytopenia due to chemotherapy Code(s): D61.810 - ANTINEOPLASTIC CHEMOTHERAPY INDUCED PANCYTOPENIA Status: Chronic (4) DM2 (diabetes mellitus, type 2) Status: Chronic Qualifiers: Diabetes mellitus complication status: without complication Qualified Code( s): E11.9 - Type 2 diabetes mellitus without complications (5) HTN (hypertension) Code(s): I10 - ESSENTIAL (PRIMARY) HYPERTENSION Status: Chronic Qualifiers: Hypertension type: essential hypertension Qualified Code(s): I10 - Essential (primary) hypertension - Plan cont current plan of care, plan discussed w/ family, continue antibiotics, PT/OT , out of bed/ambulate * Continue with PO Levaquin. * Restart anxiety medications * Restart Glipizide/Metformin * PT/OT, OOB * Likely D/C in AM
[2017-12-24 13:28] VITALS: BMI 36.4
[2017-12-24] MEDS: FLUoxetine HCl 20 MG CAP PO SCH (20:20)
[2017-12-25] MEDS: HYDROcodone/Acetaminophen 10/325 mg Tablet PO PRN ×4 (03:42→18:26)
[2017-12-25] MEDS: Diabetic Tussin 200 MG/10 ML UDCUP PO PRN ×3 (03:42→22:31)
[2017-12-25 05:40] LABS: #Eosinphils 0.2 thou/uL (0.0-0.7); #Lymphocytes 0.9 thou/uL (1.20-3.40); #Monocytes 0.7 thou/uL (0.11-0.59); #Neutrophils 5.1 thou/uL (1.40-6.50); %Basophils 0.2 % (0.0-1.0); %Eosinophils 2.8 % (0.0-10.0); %Lymphocytes 12.9 % (21.0-51.0); %Monocytes 9.8 % (0.0-10.0); %Neutrophils 74.3 % (42.0-75.0); Hemoglobin 10.7 g/dL (12.0-16.0); Mean Corpuscular HGB CONC 32.5 g/dL (32.0-36.0); Mean Corpuscular Hemoglobin 28.9 pg (27.0-31.0); Mean Corpuscular Volume 88.9 fl (81.0-99.0); Mean Platelet Volume 7.1 fL (7.4-10.4); Platelet Count 162 thou/uL (130-400); RBC Distribution Width 14.6 % (11.5-14.5); Red Blood Cell (RBC) Count 3.69 mill/uL (4.20-5.40); White Blood Cell (WBC) Count 6.8 thou/uL (4.8-10.8)
[2017-12-25 05:53] LABS: Anion Gap 13 mmol/L (10-20); BUN (Urea Nitrogen) 16 mg/dL (9.8-20.1); Calc. Creatinine Clearance 108 mL/min (70-130); Calcium 8.9 mg/dL (7.8-10.44); Carbon Dioxide 23 mmol/L (22-29); Chloride 101 mmol/L (98-107); Estimated GFR-MDRD 87; Glucose 132 mg/dL (70-105); Potassium 4.2 mmol/L (3.5-5.1); Sodium 133 mmol/L (136-145)
[2017-12-25] MEDS: metFORMIN 500 MG TAB PO SCH ×2 (09:30→17:20)
[2017-12-25] MEDS: FLUoxetine HCl 20 MG CAP PO SCH ×2 (09:30→22:33)
[2017-12-25] MEDS: Famotidine 40 MG/4 ML VIAL SLOW IVP SCH ×2 (09:30→22:31)
[2017-12-25] MEDS: Heparin 5,000 UNITS/ML VIAL SC SCH ×3 (09:30→22:33)
[2017-12-25] MEDS: Letrozole 2.5 MG TAB PO SCH (09:31)
[2017-12-25] MEDS: Lisinopril/Hydrochlorothiazide 20/25 mg Tablet PO SCH (09:31)
[2017-12-25] MEDS: Lorazepam 0.5 MG TAB PO PRN (14:03)
--- NOTE | 2017-12-25 15:02 | PDOC.PN ---
- Subjective Encounter Start Date: 12/25/17 Encounter Start Time: 11:15 Subjective: pt up in bed no complains - Objective Resuscitation Status: Resuscitation Status FULL:Full Resuscitation Vital Signs & Weight: Vital Signs (12 hours) Temp Pulse Resp BP BP Pulse Ox 12/25/17 11:48 98.6 F 91 18 107/60 97 12/25/17 09:31 95 12/25/17 09:27 98.5 F 95 18 99/50 L 100 12/25/17 08:45 98.6 F 91 18 100 12/25/17 04:18 99.0 F 96 17 102/53 L 97 Weight Admit Weight 199 lb 6.4 oz Weight 195 lb 8 oz I&O: 12/24/17 12/25/17 12/26/17 06:59 06:59 06:59 Intake Total 600 600 Balance 600 600 Result Diagrams: 12/25/17 05:07 12/25/17 05:07 Additional Labs: Accuchecks 12/25/17 12/25/17 12/24/17 10:53 05:47 22:17 POC Glucose 178 H 129 H 126 H 12/24/17 12/24/17 12/24/17 20:26 18:05 16:49 POC Glucose 142 H 207 H 133 H 12/24/17 14:10 POC Glucose 130 H Phys Exam - Physical Examination HEENT: PERRLA, moist MMs Neck: no nodes, no JVD Respiratory: no wheezing, no rales Cardiovascular: RRR, no significant murmur Gastrointestinal: soft, non-tender Musculoskeletal: no edema Neurological: non-focal Dx/Plan - Plan 1)penumonia 2) hypoglycemia 3) pancytopenia due to chemotherapy 4) paroxysmal afib plan: pt went into afib/aflutter she converted this am at midnight. will get echo. pt has extensive disease will put her on asa for now. continue levaquin. if echo stable may be discharged in am. Review of Systems - Review of Systems Eyes: negative: Pain, Vision Change, Conjunctivae Inflammation, Eyelid Inflammation, Redness, Other Respiratory: Cough Cardiovascular: negative: chest pain, palpitations, orthopnea, paroxysmal nocturnal dyspnea, edema, light headedness, other Gastrointestinal: negative: Nausea, Vomiting, Abdominal Pain, Diarrhea, Constipation, Melena, Hematochezia, Other - Medications/Allergies Allergies/Adverse Reactions: Allergies Allergy/AdvReac Type Severity Reaction Status Date / Time Gadolinium-Containing AdvReac Mild Emesis Verified 12/02/17 12:33 Contrast Medi Medications: Current Medications Hydrocodone Bitart/Acetaminophen ([place] 10/325) 2 tab PO Q4H PRN PRN Reason: Pain Last Admin: 12/25/17 14:00 Dose: 2 tab Hydrocodone Bitart/Acetaminophen ([place] 10/325) 2 tab PO QID PRN PRN Reason: Pain Last Admin: 12/24/17 02:34 Dose: 2 tab Aspirin (Aspirin Chewable) 81 mg PO DAILY [facility] Cyclobenzaprine HCl (Flexeril) 10 mg PO TID PRN PRN Reason: Pain Dextrose/Water (Dextrose 50%) 25 gm SLOW IVP PRN PRN PRN Reason: Hypoglycemia Famotidine (Pepcid) 20 mg SLOW IVP Q12HR [facility] Last Admin: 12/25/17 09:30 Dose: 20 mg Fluoxetine HCl (Prozac) 20 mg PO BID [facility] Last Admin: 12/25/17 09:30 Dose: 20 mg Glipizide (Glucotrol Xl) 5 mg PO BID [facility] Last Admin: 12/25/17 09:30 Dose: 5 mg Glucagon (Glucagon) 1 mg IM PRN PRN PRN Reason: Hypoglycemia Guaifenesin (Robitussin Sf) 200 mg PO Q4H PRN PRN Reason: Cough Last Admin: 12/25/17 09:31 Dose: 200 mg Lisinopril/HCTZ (Prinizide 20-25) 1 tab PO DAILY [facility] Last Admin: 12/25/17 09:31 Dose: 1 tab Heparin Sodium (Porcine) (Heparin) 5,000 units SC TID [facility] Last Admin: 12/25/17 14:02 Dose: 5,000 units Dextrose/Water (D5w) 1,000 mls @ 0 mls/hr IV .Q0M PRN; As Directed PRN Reason: Hypoglycemia Letrozole (Femara) 2.5 mg PO DAILY [facility] Last Admin: 12/25/17 09:31 Dose: 2.5 mg Levofloxacin (Levaquin) 500 mg PO 0600 [facility] Last Admin: 12/25/17 05:41 Dose: 500 mg Lorazepam (Ativan) 0.5 mg PO TIDPRN PRN PRN Reason: Anxiety Last Admin: 12/25/17 14:03 Dose: 0.5 mg Metformin HCl (Glucophage) 500 mg PO BID-[facility] Last Admin: 12/25/17 09:30 Dose: 500 mg Sodium Chloride (Flush - Normal Saline) 10 ml IVF Q12HR [facility] Last Admin: 12/25/17 09:31 Dose: 10 ml Sodium Chloride (Flush - Normal Saline) 10 ml IVF PRN PRN PRN Reason: Saline Flush
[2017-12-25] MEDS: Cyclobenzaprine 10 MG TAB PO PRN (18:27)
[2017-12-25] MEDS ORDERED: Sodium Chloride 0.9% 500 ML IVPB SCH (20:00)
[2017-12-25] MEDS ORDERED: Dronedarone HCl 400 MG TAB PO SCH (22:00)
--- NOTE | 2017-12-26 00:28 | CON ---
DATE OF CONSULTATION: 12/25/2017 HISTORY: Katherine Neff is a 52-year-old black female who has metastatic breast cancer to the brain, currently undergoing radiation therapy. She stated that she completed a course of that and now is on a 1-month rest befor undergoing more radiation. She came to the emergency room on 12/22/2017 with hypoglycemia and feeling very poorly. Hypoglycemia has been corrected; however , she also has been found to have right-sided pneumonia. She was hypotensive when she arrived with blood pressure in 70s and was given intravenous fluids. She has been coughing yellow sputum. She has been monitored and has had episodes of paroxysmal atrial fibrillation with rates in the 140s to 150s. She states that she is aware of that and has also noted that at home over the last year. She is uncertain how often the episodes occur, but they would tend to last 10-15 minutes and at times she would have some chest tightness associated with this. She denies ever having any other type of cardiac problems in the past. No history of coronary artery disease or valvular heart disease. PAST MEDICAL HISTORY: Diabetes; hypertension; obesity; metastatic breast cancer , status post right mastectomy. She also has had chemotherapy for breast cancer. OPERATIONS: Cholecystectomy, hysterectomy, bladder repair, hernia repair, right mastectomy. MEDICATIONS: Flexeril 10 t.i.d. p.r.n., glipizide 5 mg b.i.d., hydrocodone p.r.n., lisinopril/hydrochlorothiazide 20/25 daily, metformin 500 mg b.i.d. ALLERGIES: GADOLINIUM. SOCIAL HISTORY: She does not smoke or drink. FAMILY HISTORY: Positive for coronary artery disease. REVIEW OF SYSTEMS: Twelve-point review of systems is otherwise unremarkable. PHYSICAL EXAMINATION: VITAL SIGNS: Blood pressure 107/60, pulse of 91, sinus rhythm on the monitor. HEENT: PERRL. NECK: Supple. CHEST: Clear except for occasional rhonchi on the right. CARDIOVASCULAR: S1, S2 normal without any S3, S4, or murmurs. ABDOMEN: Normal bowel sounds without tenderness, organomegaly. EXTREMITIES: Revealed no clubbing, cyanosis, or edema. NEUROLOGIC: Grossly intact. SKIN: Warm and dry. LABORATORY DATA: EKG revealed normal sinus rhythm and is unremarkable. Echocardiogram revealed ejection fraction of 55%-60% with evidence for diastolic dysfunction, mild left atrial enlargement, mild mitral regurgitation, and mild tricuspid regurgitation. Hemoglobin 10.7, hematocrit 32.8, white count 6800, platelets 162,000. Sodium 133, potassium 4.2, chloride 101, carbon dioxide 23, BUN 16, creatinine 0.83. Chest x-ray revealed right lung infiltrate. IMPRESSION: 1. Paroxysmal atrial fibrillation. It sounds as if she has been having episodes for the last year. 2. Metastatic breast cancer, status post chemotherapy in 2017 and then more recently has undergone radiation therapy for brain metastasis. 3. Hypertension. 4. Hypercholesterolemia. 5. Diabetes. 6. Obesity. RECOMMENDATIONS: Ms. Neff is a prohibitive candidate to consider for anticoagulation with brain metastasis. Therefore, I feel our best approach would be to see if her atrial fibrillation can be suppressed. I will start her on Multaq 400 mg b.i.d. MTDD
[2017-12-26] MEDS ORDERED: Sodium Chloride 0.9% 1,000 ML IV SCH (01:30)
[2017-12-26] MEDS: Sodium Chloride 0.9% 1,000 ML IV SCH ×3 (02:34→18:13)
[2017-12-26] MEDS: HYDROcodone/Acetaminophen 10/325 mg Tablet PO PRN ×3 (03:27→13:53)
[2017-12-26] MEDS: Diabetic Tussin 200 MG/10 ML UDCUP PO PRN ×3 (03:28→13:57)
[2017-12-26 05:25] LABS: #Eosinphils 0.2 thou/uL (0.0-0.7); #Monocytes 0.6 thou/uL (0.11-0.59); #Neutrophils 3.5 thou/uL (1.40-6.50); %Basophils 0.2 % (0.0-1.0); %Eosinophils 3.7 % (0.0-10.0); %Lymphocytes 18.5 % (21.0-51.0); %Monocytes 10.5 % (0.0-10.0); %Neutrophils 67.1 % (42.0-75.0); Mean Corpuscular HGB CONC 32.5 g/dL (32.0-36.0); Mean Corpuscular Hemoglobin 28.8 pg (27.0-31.0); Mean Corpuscular Volume 88.6 fl (81.0-99.0); Mean Platelet Volume 6.9 fL (7.4-10.4); Platelet Count 161 thou/uL (130-400); RBC Distribution Width 14.4 % (11.5-14.5); Red Blood Cell (RBC) Count 3.47 mill/uL (4.20-5.40); White Blood Cell (WBC) Count 5.3 thou/uL (4.8-10.8)
[2017-12-26 05:37] LABS: Anion Gap 11 mmol/L (10-20); BUN (Urea Nitrogen) 15 mg/dL (9.8-20.1); Calc. Creatinine Clearance 123 mL/min (70-130); Calcium 8.4 mg/dL (7.8-10.44); Carbon Dioxide 24 mmol/L (22-29); Chloride 104 mmol/L (98-107); Estimated GFR-MDRD Greater than 90; Glucose 91 mg/dL (70-105); Potassium 4.3 mmol/L (3.5-5.1); Sodium 135 mmol/L (136-145)
[2017-12-26] MEDS: Dronedarone HCl 400 MG TAB PO SCH ×2 (08:31→16:34)
[2017-12-26] MEDS: FLUoxetine HCl 20 MG CAP PO SCH ×2 (08:31→21:27)
[2017-12-26] MEDS: Famotidine 40 MG/4 ML VIAL SLOW IVP SCH ×2 (08:31→21:30)
[2017-12-26] MEDS: metFORMIN 500 MG TAB PO SCH ×2 (08:31→16:34)
[2017-12-26] MEDS: Lisinopril/Hydrochlorothiazide 20/25 mg Tablet PO SCH (08:32)
[2017-12-26] MEDS: Heparin 5,000 UNITS/ML VIAL SC SCH ×3 (08:32→21:27)
[2017-12-26] MEDS: Letrozole 2.5 MG TAB PO SCH (08:32)
--- NOTE | 2017-12-26 13:36 | PDOC.PN ---
- Subjective Encounter Start Date: 12/26/17 Encounter Start Time: 13:39 Subjective: No acute events overngiht -: Feels better today but still says "I feel sick" - Objective Resuscitation Status: Resuscitation Status FULL:Full Resuscitation MAR Reviewed: Yes Vital Signs & Weight: Vital Signs (12 hours) Temp Pulse Resp BP BP Pulse Ox 12/26/17 11:00 99 F 108 H 22 H 103/63 97 12/26/17 08:28 97.9 F 100 18 121/61 97 12/26/17 08:00 97.9 F 100 18 97 12/26/17 04:40 98.8 F 92 18 102/55 L 98 Weight Admit Weight 199 lb 6.4 oz Weight 200 lb 12.8 oz I&O: 12/25/17 12/26/17 12/27/17 06:59 06:59 06:59 Intake Total 600 1725 Balance 600 1725 Result Diagrams: 12/26/17 05:00 12/26/17 05:00 Additional Labs: Accuchecks 12/26/17 12/26/17 12/25/17 11:01 06:16 21:07 POC Glucose 110 97 197 H 12/25/17 16:57 POC Glucose 117 H Phys Exam - Physical Examination Constitutional: NAD HEENT: PERRLA, moist MMs, sclera anicteric Neck: no JVD, supple, full ROM Respiratory: no wheezing, no rales, no rhonchi, clear to auscultation bilateral Cardiovascular: no significant murmur, no rub, irregular Regular rate Gastrointestinal: soft, non-tender, no distention, positive bowel sounds Musculoskeletal: no edema, pulses present Neurological: non-focal, moves all 4 limbs Psychiatric: normal affect, A&O x 3 Skin: no rash, normal turgor Dx/Plan (1) Paroxysmal atrial fibrillation Code(s): I48.0 - PAROXYSMAL ATRIAL FIBRILLATION Status: Acute Comment: Achieving better control since starting Multaq. ANNY showed EF 55-60%. Will f/u cardiology recs. (2) Pancytopenia due to chemotherapy Code(s): D61.810 - ANTINEOPLASTIC CHEMOTHERAPY INDUCED PANCYTOPENIA Status: Chronic Comment: 2/2 breast cancer w metastasis to the brain. Stable. will monitor hematological indices. (3) DM2 (diabetes mellitus, type 2) Status: Chronic Qualifiers: Diabetes mellitus complication status: without complication Qualified Code( s): E11.9 - Type 2 diabetes mellitus without complications Comment: Controlled and at goal. Continue Glipizide and Metformin. (4) HTN (hypertension) Code(s): I10 - ESSENTIAL (PRIMARY) HYPERTENSION Status: Chronic Qualifiers: Hypertension type: essential hypertension Qualified Code(s): I10 - Essential (primary) hypertension Comment: Controlled. Continue current regimen. (5) PNA (pneumonia) Code(s): J18.9 - PNEUMONIA, UNSPECIFIED ORGANISM Status: Suspected Qualifiers: Pneumonia type: due to unspecified organism Laterality: right Lung location: middle lobe of lung Qualified Code(s): J18.1 - Lobar pneumonia, unspecified organism Comment: Cultures negative so far. Continue Levofloxacin. (6) Hypoglycemia Code(s): E16.2 - HYPOGLYCEMIA, UNSPECIFIED Status: Resolved - Plan cont current plan of care, continue antibiotics, respiratory therapy, DVT proph w/heparin Likely discharge tomorrow. * . Review of Systems - Medications/Allergies Allergies/Adverse Reactions: Allergies Allergy/AdvReac Type Severity Reaction Status Date / Time Gadolinium-Containing AdvReac Mild Emesis Verified 12/02/17 12:33 Contrast Medi Medications: Current Medications Hydrocodone Bitart/Acetaminophen ([place] 10/325) 2 tab PO Q4H PRN PRN Reason: Pain Last Admin: 12/26/17 08:34 Dose: 2 tab Hydrocodone Bitart/Acetaminophen ([place] 10/325) 2 tab PO QID PRN PRN Reason: Pain Last Admin: 12/26/17 03:27 Dose: 2 tab Aspirin (Aspirin Chewable) 81 mg PO DAILY [facility] Last Admin: 12/26/17 08:31 Dose: 81 mg Cyclobenzaprine HCl (Flexeril) 10 mg PO TID PRN PRN Reason: Pain Last Admin: 12/25/17 18:27 Dose: 10 mg Dextrose/Water (Dextrose 50%) 25 gm SLOW IVP PRN PRN PRN Reason: Hypoglycemia Dronedarone (Multaq) 400 mg PO BID[facility] Last Admin: 12/26/17 08:31 Dose: 400 mg Famotidine (Pepcid) 20 mg SLOW IVP Q12HR [facility] Last Admin: 12/26/17 08:31 Dose: 20 mg Fluoxetine HCl (Prozac) 20 mg PO BID [facility] Last Admin: 12/26/17 08:31 Dose: 20 mg Glipizide (Glucotrol Xl) 5 mg PO BID [facility] Last Admin: 12/26/17 08:31 Dose: 5 mg Glucagon (Glucagon) 1 mg IM PRN PRN PRN Reason: Hypoglycemia Guaifenesin (Robitussin Sf) 200 mg PO Q4H PRN PRN Reason: Cough Last Admin: 12/26/17 08:33 Dose: 200 mg Lisinopril/HCTZ (Prinizide 20-25) 1 tab PO DAILY [facility] Last Admin: 12/26/17 08:32 Dose: 1 tab Heparin Sodium (Porcine) (Heparin) 5,000 units SC TID [facility] Last Admin: 12/26/17 08:32 Dose: 5,000 units Dextrose/Water (D5w) 1,000 mls @ 0 mls/hr IV .Q0M PRN; As Directed PRN Reason: Hypoglycemia Sodium Chloride (Normal Saline 0.9%) 1,000 mls @ 125 mls/hr IV .Q8H [facility] Last Admin: 12/26/17 08:32 Dose: 1,000 mls Letrozole (Femara) 2.5 mg PO DAILY [facility] Last Admin: 12/26/17 08:32 Dose: 2.5 mg Levofloxacin (Levaquin) 500 mg PO 0600 [facility] Last Admin: 12/26/17 05:34 Dose: 500 mg Lorazepam (Ativan) 0.5 mg PO TIDPRN PRN PRN Reason: Anxiety Last Admin: 12/25/17 14:03 Dose: 0.5 mg Metformin HCl (Glucophage) 500 mg PO BID-[facility] Last Admin: 12/26/17 08:31 Dose: 500 mg Sodium Chloride (Flush - Normal Saline) 10 ml IVF Q12HR [facility] Last Admin: 12/26/17 08:32 Dose: Not Given Sodium Chloride (Flush - Normal Saline) 10 ml IVF PRN PRN PRN Reason: Saline Flush
[2017-12-27] MEDS: Diabetic Tussin 200 MG/10 ML UDCUP PO PRN ×3 (00:10→10:23)
[2017-12-27] MEDS: Sodium Chloride 0.9% 1,000 ML IV SCH ×2 (03:11→14:43)
[2017-12-27] MEDS: HYDROcodone/Acetaminophen 10/325 mg Tablet PO PRN ×2 (05:01→10:37)
[2017-12-27 05:31] LABS: #Eosinphils 0.2 thou/uL (0.0-0.7); #Lymphocytes 1.1 thou/uL (1.20-3.40); #Monocytes 0.6 thou/uL (0.11-0.59); #Neutrophils 2.8 thou/uL (1.40-6.50); %Basophils 0.5 % (0.0-1.0); %Eosinophils 3.4 % (0.0-10.0); %Monocytes 13.4 % (0.0-10.0); %Neutrophils 58.7 % (42.0-75.0); Hemoglobin 9.6 g/dL (12.0-16.0); Mean Corpuscular HGB CONC 32.2 g/dL (32.0-36.0); Mean Corpuscular Hemoglobin 28.8 pg (27.0-31.0); Mean Corpuscular Volume 89.4 fl (81.0-99.0); Mean Platelet Volume 6.8 fL (7.4-10.4); Platelet Count 148 thou/uL (130-400); RBC Distribution Width 14.7 % (11.5-14.5); Red Blood Cell (RBC) Count 3.35 mill/uL (4.20-5.40); White Blood Cell (WBC) Count 4.7 thou/uL (4.8-10.8)
[2017-12-27 06:15] LABS: Anion Gap 14 mmol/L (10-20); BUN (Urea Nitrogen) 11 mg/dL (9.8-20.1); Calc. Creatinine Clearance 114 mL/min (70-130); Calcium 8.7 mg/dL (7.8-10.44); Carbon Dioxide 20 mmol/L (22-29); Chloride 107 mmol/L (98-107); Estimated GFR-MDRD 90; Glucose 101 mg/dL (70-105); Potassium 4.4 mmol/L (3.5-5.1); Sodium 137 mmol/L (136-145)
[2017-12-27] MEDS: Letrozole 2.5 MG TAB PO SCH (10:17)
[2017-12-27] MEDS: Famotidine 40 MG/4 ML VIAL SLOW IVP SCH (10:17)
[2017-12-27] MEDS: Lisinopril/Hydrochlorothiazide 20/25 mg Tablet PO SCH (10:18)
[2017-12-27] MEDS: Dronedarone HCl 400 MG TAB PO SCH (10:18)
[2017-12-27] MEDS: metFORMIN 500 MG TAB PO SCH (10:19)
[2017-12-27] MEDS: FLUoxetine HCl 20 MG CAP PO SCH (10:19)
[2017-12-27] MEDS: Heparin 5,000 UNITS/ML VIAL SC SCH ×2 (10:20→10:41)
[2017-12-27] MEDS: Cyclobenzaprine 10 MG TAB PO PRN (10:23)
[2017-12-27] MEDS ORDERED: Morphine 2 MG/ML SYRINGE SLOW IVP SCH (11:30)
[2017-12-27 12:33] VITALS: BP 124/77; TEMP 99.1
--- NOTE | 2017-12-28 10:26 | DIS ---
DATE OF ADMISSION: 12/23/2017 DATE OF DISCHARGE: 12/27/2017 DISCHARGE DIAGNOSES: Hyperglycemia, pneumonia, hypertension, type 2 diabetes mellitus, pancytopenia due to chemotherapy, and paroxysmal atrial fibrillation. HISTORY OF PRESENT ILLNESS/HOSPITAL COURSE: This is a 52-year-old female with known history of diabetes, hyperlipidemia, hypertension, and metastatic breast cancer undergoing radiation, who presented to the emergency room with hypoglycemia. On the morning of admission, her blood glucose was around 40, subsequently went to her primary care provider and was sent to the emergency room due to hypotension with systolic blood pressure in the 70s. At the ER, she was given amps of D50 with correction of hypoglycemia. She was also given 2 liters of IV fluids with correction of hypotension. She also had some abdominal pain and chest pain during the episode of hypoglycemia. Her labs are reviewed. Elevated WBC count. Hemoglobin A1c was 5.4. Lactic acid was 1.6. She was then admitted for symptomatic hypoglycemia and hypotension. This resolved while on admission. Her metformin was continued and her home glipizide was discontinued. She was treated for pneumonia with levofloxacin. Her blood glucose remained within normal limits before discharge. Her atrial fibrillation was also rate controlled. Ejection fraction showed 55% to 60%. She was reviewed by Cardiology for her paroxysmal AFib and was started on Multaq 400 mg b.i.d. with subsequent control of her heart rate. Anticoagulation was not done because the patient has a history of brain metastases, which is prohibited for anticoagulation. She was stable on discharge without incident. DISCHARGE MEDICATIONS: Dronedarone 400 mg twice a day, fluoxetine 20 mg twice a day, levofloxacin 500 mg daily, metformin 500 mg twice a day, lisinopril/hydrochlorothiazide one tablet daily, cyclobenzaprine 10 mg 3 times a day, letrozole 2.5 mg daily, and hydrocodone/acetaminophen 2 times a day as needed. PHYSICAL EXAMINATION: She was examined on the day of discharge. VITAL SIGNS: Blood pressure 118/64, oxygen saturation 100% on room air, respiratory rate 20, pulse rate 79, temperature 96.6 degrees Fahrenheit. GENERAL: Not in acute distress, sitting comfortably in bed. HEENT: PERRLA. Moist mucous membranes. Sclerae are anicteric. NECK: Supple, full range of movement. RESPIRATORY: No wheezing, rales, or rhonchi. LUNGS: Clear to auscultation bilaterally. CARDIOVASCULAR: S1 and S2 on the irregular heartbeats regular rate. No murmurs , rubs or gallops. GASTROINTESTINAL: Soft, nontender, nondistended, positive bowel sounds. No organomegaly. MUSCULOSKELETAL: No edema with Pulses present. NEUROLOGICAL: Nonfocal. Moves all limbs. PSYCHIATRIC: Normal affect. Alert and well oriented to time, place, and person. SKIN: No rashes. Normal turgor, warm, dry, well-perfused. LABORATORY DATA: Sodium 137, potassium 4.4, chloride 107, carbon anxiety 20, anion gap 14, BUN 11 , creatinine 0.8, glucose 101, calcium 8.7, hemoglobin 9.6, WBC 4.7, platelet count 148. IMAGING: Chest CT/abdomen pelvis, no acute abdominal findings. Chest x-ray stable area of scar or opacity in the right midlung, not significantly changed at the previous exam of 12/05/2017, no acute interval changes or abnormality was seen Consult: Cardiology. PROCEDURES: None. Condition at discharge: Stable and improved. DIET: Diabetic, heart healthy, To follow up with her primary care physician within 1 week of discharge for blood pressure check and repeat labs. ACTIVITY: Resume as tolerated. Discharge time 65 minutes including chart review and documentation. [facility]
--- NOTE | 2017-12-28 20:17 | EKG ---
Test Reason : Blood Pressure : / mmHG Vent. Rate : 102 BPM Atrial Rate : 102 BPM P-R Int : 128 ms QRS Dur : 068 ms QT Int : 330 ms P-R-T Axes : 042 037 042 degrees QTc Int : 430 ms Sinus tachycardia Otherwise normal ECG When compared with ECG of 22-DEC-2017 11:57, (Unconfirmed) No significant change was found Confirmed by LEIGH GOMEZ ([id number]) on 12/28/2017 8:17:17 PM Referred By: STRAR Confirmed By:LEIGH GOMEZ
--- NOTE | 2018-01-15 20:41 | EKG ---
Test Reason : Blood Pressure : / mmHG Vent. Rate : 099 BPM Atrial Rate : 099 BPM P-R Int : 114 ms QRS Dur : 070 ms QT Int : 324 ms P-R-T Axes : 016 026 039 degrees QTc Int : 415 ms Normal sinus rhythm Normal ECG Confirmed by SHERRY ROY ([id number]), telegraph editor KULDEEP PAUL ([id number]) on 01/15/2018 8:40:56 PM Referred By: Confirmed By:SHERRY ROY
== END 2017-12-27 14:55 | disposition home or self-care (01) | DRG 871 ==
LOC: ERS 11:35 → 2NO 17:10
PROVIDERS: ADMIT Internal Medicine; ATTEND Internal Medicine
DX: A41.9 Sepsis, unspecified organism (principal); D61.810 Antineoplastic chemotherapy induced pancytopenia; J18.1 Lobar pneumonia, unspecified organism; C79.31 Secondary malignant neoplasm of brain; E11.649 Type 2 diabetes mellitus with hypoglycemia without coma; I95.9 Hypotension, unspecified; I08.1 Rheumatic disorders of both mitral and tricuspid valves; I48.0 Paroxysmal atrial fibrillation; C50.919 Malignant neoplasm of unspecified site of unspecified female breast; E78.5 Hyperlipidemia, unspecified; I10 Essential (primary) hypertension; Z92.3 Personal history of irradiation; E66.9 Obesity, unspecified; Z68.36 Body mass index [BMI] 36.0-36.9, adult; Z92.21 Personal history of antineoplastic chemotherapy; Z90.11 Acquired absence of right breast and nipple; Z88.8 Allergy status to other drugs, medicaments and biological substances; Z95.828 Presence of other vascular implants and grafts; F41.9 Anxiety disorder, unspecified
CPT/HCPCS: 36415; 36416; 71045; 71260; 74177; 80048; 80053; 81003; 81015; 82533; 82553; 83036; 83605; 83690; 83735; 83880; 84443; 84484; 85025; 87040; 87086; 93005; 93010; 93306; 96360; 96361; A4216; G8987-GO-CJ; G8988-GO-CI; G8999-GN-CK; G9186-GN-CJ; J0744; J1644; J2270; J7050; S0028

== ENCOUNTER 2017-12-31 23:53 | Emergency (ER) | payer MEDICARE, MEDICAID ==
[2018-01-01 00:39] LABS: #Eosinphils 0.2 thou/uL (0.0-0.7); #Lymphocytes 1.2 thou/uL (1.20-3.40); #Monocytes 0.5 thou/uL (0.11-0.59); #Neutrophils 2.9 thou/uL (1.40-6.50); %Basophils 0.2 % (0.0-1.0); %Eosinophils 3.5 % (0.0-10.0); %Lymphocytes 25.9 % (21.0-51.0); %Monocytes 10.6 % (0.0-10.0); %Neutrophils 59.8 % (42.0-75.0); Hemoglobin 9.1 g/dL (12.0-16.0); Mean Corpuscular HGB CONC 31.2 g/dL (32.0-36.0); Mean Corpuscular Hemoglobin 28.1 pg (27.0-31.0); Mean Corpuscular Volume 90.3 fl (81.0-99.0); Mean Platelet Volume 6.7 fL (7.4-10.4); Platelet Count 161 thou/uL (130-400); RBC Distribution Width 14.4 % (11.5-14.5); Red Blood Cell (RBC) Count 3.24 mill/uL (4.20-5.40); White Blood Cell (WBC) Count 4.8 thou/uL (4.8-10.8)
[2018-01-01 00:58] LABS: ALT (SGPT) 13 U/L (8-55); AST (SGOT) 12 U/L (5-34); Albumin 2.8 g/dL (3.5-5.0); Alkaline Phosphatase 91 U/L (40-150); Anion Gap 12 mmol/L (10-20); BUN (Urea Nitrogen) 25 mg/dL (9.8-20.1); Bilirubin, Total Less than 0.2 mg/dL (0.2-1.2); CK (CPK) 52 U/L (29-168); Calc. Creatinine Clearance 0 mL/min (70-130); Calcium 8.3 mg/dL (7.8-10.44); Carbon Dioxide 24 mmol/L (22-29); Chloride 101 mmol/L (98-107); Estimated GFR-MDRD 65; Globulin 3.4 g/dL (2.4-3.5); Glucose 104 mg/dL (70-105); Lipase 21 U/L (8-78); Potassium 4.2 mmol/L (3.5-5.1); Protein, Total 6.2 g/dL (6.0-8.3); Sodium 133 mmol/L (136-145)
[2018-01-01 01:03] LABS: CKMB 0.9 ng/mL (0-6.6); Troponin I Less than 0.010 ng/mL (< 0.028)
--- NOTE | 2018-01-01 08:42 | RAD ---
PORTABLE CHEST: Date: 01/01/18 PROVIDED CLINICAL HISTORY: Cough. FINDINGS: Comparison with 12/22/17. Cardiac and mediastinal silhouette is unchanged in appearance. Volume loss involving the right hemith orax with rightward shift of mediastinal contents again noted. Right-sided implanted port is again se en in similar position. The left lung remains clear. There is no pleural fluid or pneumothorax eviden t. IMPRESSION: Stable radiographic appearance of the chest. POS: NENA
== END 2018-01-01 01:40 | disposition home or self-care (01) ==
LOC: ERS 23:53
DX: I95.9 Hypotension, unspecified (principal); E11.65 Type 2 diabetes mellitus with hyperglycemia; F41.9 Anxiety disorder, unspecified
CPT/HCPCS: 36415; 71045; 80053; 82010; 82550; 82553; 83690; 83880; 84484; 85025; 93005; 96360

== ENCOUNTER 2018-01-03 17:21 | Emergency (ER) | payer MEDICARE, MEDICAID ==
--- NOTE | 2018-01-03 20:07 | RAD ---
TWO VIEWS CHEST: Comparison: 01-01-18 History: Chest pain. Patient recently witnessed someone having CPR in progress, causing her chest kayleigh n and anxiety. FINDINGS: Two views of the chest shows a normal cardiomediastinal silhouette. There is volume loss in the right thorax. There is a Mediport, unchanged in position. There appears to be small right pleural effusion s. There is right hilar fullness which could represent a mass or infiltrate. This is unchanged compar ed to the prior exam. Left sided infiltrates are seen. IMPRESSION: Stable exam with small right pleural effusion versus infiltrate. POS: H
== END 2018-01-03 18:53 | disposition left against medical advice (07) ==
LOC: ERS 17:21
DX: Z53.21 Procedure and treatment not carried out due to patient leaving prior to being seen by health care provider (principal)
CPT/HCPCS: 71046; 93005

== ENCOUNTER 2018-01-20 09:19 | Outpatient (CLI) | payer MEDICARE, MEDICAID ==
--- NOTE | 2018-01-20 11:33 | MRI ---
MRI OF THE BRAIN WITHOUT AND WITH CONTRAST: Date: 01/20/18 COMPARISON: 12/02/17. HISTORY: Breast cancer with intracranial metastatic disease. Status post radiosurgery. TECHNIQUE: Multiplanar, multisequence MR images were obtained of the brain without and with IV contrast. FINDINGS: Three lesions are again seen in the right cerebral hemisphere. The largest lesion is seen in the righ t posterior parietal lobe. This has decreased in size and now measures 1.6 x 1.8 x 1.7 cm in size. Th ere is less pronounced vasogenic edema surrounding this lesion when compared to the prior MRI. The se cond largest lesion is again seen in the right temporal lobe and has also decreased in size, now familia uring 5.0 mm in greatest dimension with less surrounding vasogenic edema. The very small lesion in th e right frontal lobe measures approximately 3-4 mm on today's examination and is either stable to sli ghtly decreased in size. No new abnormal areas of enhancement are seen in the brain. There is no evidence of hydrocephalus, intracranial hemorrhage, or extra-axial fluid collection. The expected flow-voids are present. The corpus callosum, pituitary, and craniocervical junction are unre markable. The calvarium and overlying soft tissues are unremarkable. The visualized paranasal sinuses and masto id air cells are well aerated. IMPRESSION: Decreased size of cerebral metastatic lesions. POS: [facility]
[2018-01-20] MEDS ORDERED: Gadobenate Dimeglumine 529 MG/1 ML (20ML VIAL) ONE (13:57)
== END 2018-01-20 09:20 | disposition home or self-care (01) ==
LOC: MRI 09:19
PROVIDERS: ATTEND Radiology Radiation Oncology
DX: C79.31 Secondary malignant neoplasm of brain (principal)
CPT/HCPCS: 70553; A9579

== ENCOUNTER 2018-01-20 10:52 | Emergency (ER) | payer MEDICARE, MEDICAID ==
--- NOTE | 2018-01-20 11:45 | RAD ---
CHEST TWO VIEWS: HISTORY: Cough. Upper back pain. COMPARISON: 01/03/2018 FINDINGS: Two views of the chest show a normal sized cardiomediastinal silhouette. There is volume loss in the right thorax. The Mediport is unchanged in position. There is upward tenting of the right hemidiap hragm. There is perihilar opacity on the right, which is unchanged. No left-sided infiltrates are s een. There are left-sided rib fractures, which appear new compared to the prior examination. IMPRESSION: 1. Stable changes in the right thorax. 2. New left rib fractures. POS: [facility]
[2018-01-20] MEDS ORDERED: Dexamethasone 4 mg/ml Vial ONE (12:05)
[2018-01-20] MEDS ORDERED: Ketorolac Tromethamine 60 MG/2 ML VIAL ONE (12:05)
== END 2018-01-20 12:28 | disposition home or self-care (01) ==
LOC: ERS 10:52
DX: S22.32XA Fracture of one rib, left side, initial encounter for closed fracture (principal); R05 Cough; E11.9 Type 2 diabetes mellitus without complications; I10 Essential (primary) hypertension; F41.9 Anxiety disorder, unspecified; X58.XXXA Exposure to other specified factors, initial encounter; C79.31 Secondary malignant neoplasm of brain
CPT/HCPCS: 70553; 71046; 96372; A9579; J1100; J1885

== ENCOUNTER 2018-01-23 05:01 | Emergency (ER) | payer MEDICARE, MEDICAID ==
[2018-01-23] MEDS ORDERED: HYDROcodone/Acetaminophen 5/325 mg Tablet ONE (05:24)
[2018-01-23] MEDS ORDERED: Ketorolac Tromethamine 60 MG/2 ML VIAL ONE (05:25)
--- NOTE | 2018-01-23 09:20 | RAD ---
TWO VIEWS CHEST: HISTORY: Left-sided rib pain. FINDINGS: PA and lateral views of the chest obtained on 01/23/18. Comparison is made to previous exam from 01/20. Two views of the chest demonstrate a right subclavian MediPort catheter in place. There is volume lo ss in the right hemithorax with scarring and subsequent expansion of the left lung with compensatory expansion of the left lung. No acute abnormality is seen. IMPRESSION: Volume loss in the right hemithorax with likely areas of scar. No evidence of pleural effusion is se en. POS: [facility]
== END 2018-01-23 06:26 | disposition home or self-care (01) ==
LOC: ERS 05:01
DX: S22.32XA Fracture of one rib, left side, initial encounter for closed fracture (principal); E11.9 Type 2 diabetes mellitus without complications; I10 Essential (primary) hypertension; F41.9 Anxiety disorder, unspecified; Z79.899 Other long term (current) drug therapy; W19.XXXA Unspecified fall, initial encounter
CPT/HCPCS: 71046; 96372; J1885

== ENCOUNTER 2018-02-08 08:37 | Outpatient (CLI) | payer MEDICARE, MEDICAID ==
--- NOTE | 2018-02-08 10:42 | RAD ---
CHEST PA AND LATERAL: History: 52-year-old female with history of dyspnea. FINDINGS: There is right sided volume loss. Heart size is within normal limits. Right subclavian catheter and i njection port. Displaced healing left rib fractures. Overall stable from most recent prior studies. N o significant new process. POS: [facility]
== END 2018-02-08 08:38 | disposition home or self-care (01) ==
LOC: RAD 08:37
PROVIDERS: ATTEND Internal Medicine
DX: R06.00 Dyspnea, unspecified (principal); C50.311 Malignant neoplasm of lower-inner quadrant of right female breast; S22.42XD Multiple fractures of ribs, left side, subsequent encounter for fracture with routine healing
CPT/HCPCS: 71046

== ENCOUNTER 2018-03-10 09:21 | Outpatient (CLI) | payer MEDICARE, MEDICAID ==
[2018-03-10] MEDS ORDERED: Iopamidol 370 76% 100 ML VIAL ONE (11:41)
--- NOTE | 2018-03-10 12:22 | CT ---
CT CHEST AND ABDOMEN AND PELVIS WITH IV CONTRAST: INDICATIONS: History of breast cancer with metastatic disease to the brain and sternum. The patient has undergone radiation therapy for two months. The patient is reporting a bloated stomach and a knot on the righ t side of the abdomen. FINDINGS: CHEST: There is worsening consolidation with volume loss in the right upper lobe and portions of the superior segment of the right lower lobe that is likely related to the patient's radiation therapy. There is a pulmonary nodule within the left lower lobe superior segment, now measuring 6.5 mm, where as on prior scans, dating back to 2012, this pulmonary nodule measured approximately 4 to 5 mm in siz e. On the most recent CT of the chest, abdomen, and pelvis, dated 12/22/2017, the pulmonary nodule m easured 5.9 mm. No additional suspicious pulmonary nodule is identified. There is shifting of the mediastinum from left to right, that appears similar. There is some density within the anterior mediastinum, likely related to therapy changes. The right breast implant appear s similar. No axillary lymphadenopathy is evident. Surgical clips are present within the right axil la. No pathologically enlarged mediastinal or hilar lymph node is evident. ABDOMEN AND PELVIS: There has been interval enlargement of a left adrenal mass, now measuring up to 3.6 cm, whereas, on the prior CT evaluation, the lesion measured 2.2 cm. There is worsening of the e nlarged lymph nodes adjacent to the left adrenal gland, measuring up to 4 mm, on image 52 of series 2 . There is a left paraaortic lymph node, measuring up to 9.2 cm, which was not present on the prior exam. The gallbladder is surgically absent. The spleen measures 11.5 cm. The pancreas and right adrenal g land are normal appearing. The kidneys appear within normal limits. There is a normal appendix in the right lower quadrant. The bladder is decompressed. The uterus, re ctum, and perirectal soft tissues are unremarkable. There has been interval development of multiple contiguous healing rib fractures involving the latera l 6th through posterolateral left 10th ribs. There is healed fracture deformity involving the right chest wall. There is mild thoracolumbar scoliosis. There has been interval development of a new nod ular opacity within the subcutaneous fat of the right upper quadrant of the abdomen on image 52 of se sánchez 2, measuring 9 mm. IMPRESSION: 1. Findings most consistent with worsening metastatic disease within the lung, the left adrenal glan d, and retroperitoneal lymph nodes. The pulmonary nodule within the superior segment of the left low er lobe has intervally enlarged and measures 6.5 mm, where on the most recent examination it measured 5.9 mm. The left adrenal mass lesion has increased in size to 3.6 cm, where it previously measured 2.1 cm. There is worsening retroperitoneal lymphadenopathy, with the largest left paraaortic lymph n ode measuring up to 9 mm. 2. Contiguous left-sided healing rib fractures without overt destructive changes of the underlying b one, more suspicious for posttraumatic rib fractures rather than pathologic rib fractures. 3. Worsening consolidative changes with volume loss involving the right upper lung, likely related t o radiation fibrotic change. 4. New subcutaneous nodule involving the fat overlying the right upper quadrant may correspond to th e patient's palpable abnormality. This may be related to an area of hematoma or subcutaneous injecti on site. Skin metastatic lesion is felt to be less likely but cannot be entirely excluded. Recommen d continued clinical followup. POS: [facility]
== END 2018-03-10 09:22 | disposition home or self-care (01) ==
LOC: CT 09:21
PROVIDERS: ATTEND Internal Medicine Hematology & Oncology
DX: C50.319 Malignant neoplasm of lower-inner quadrant of unspecified female breast (principal); S22.32XD Fracture of one rib, left side, subsequent encounter for fracture with routine healing; E27.8 Other specified disorders of adrenal gland; L98.9 Disorder of the skin and subcutaneous tissue, unspecified; R91.1 Solitary pulmonary nodule; R59.0 Localized enlarged lymph nodes
CPT/HCPCS: 71260; 74177

== ENCOUNTER 2018-03-18 10:02 | Inpatient (IN) | payer MEDICARE, MEDICAID ==
[2018-03-18] MEDS ORDERED: Ketorolac Tromethamine 60 MG/2 ML VIAL ONE (10:59)
--- NOTE | 2018-03-18 11:12 | RAD ---
RIGHT KNEE 4 VIEWS: Date: 03/18/18 HISTORY: Right knee pain. Patient heard a pop. Patient also has a history of breast cancer. FINDINGS: There is a 6.0 cm lytic lesion in the distal shaft of the right femur. A nondisplaced fracture is see n in the distal femur extending into this lesion. IMPRESSION: Pathologic fracture involving the right distal femur. POS: [facility]
--- NOTE | 2018-03-18 12:25 | CT ---
CT THORACIC SPINE WITHOUT CONTRAST: Date: 03/18/18 HISTORY: Breast cancer. Brain cancer. Pain. COMPARISON: None. CORRELATION: Chest, abdomen, and pelvis CT dated 12/22/17 and 03/10/18. FINDINGS: There is persistent opacification in the right perihilar region with consolidation in the right lower lobe. No significant change in mediastinal structures when compared to the recent prior exam. Visual ized solid organs are unchanged and unremarkable. Gallbladder is surgically absent. Thoracic spine vertebral body height is maintained. There is no evidence of fracture. No lytic or silvina stic lesions in the osseous structures. No malalignment. Mild loss of disc space height and osteophyt e formation is noted. No significant central canal stenosis or significant foraminal narrowing. IMPRESSION: 1. No fractures of the thoracic spine. 2. No significant central canal stenosis or foraminal narrowing. POS: [facility]
--- NOTE | 2018-03-18 12:50 | CT ---
CT LUMBAR SPINE WITHOUT CONTRAST: COMPARISON: 03/10/18. HISTORY: Pain. Metastatic breast cancer. TECHNIQUE: A lumbar spine CT is performed without contrast. Reformatted images are submitted for interpretation . FINDINGS: There are 5 lumbar-type vertebral bodies. Lumbar spine vertebral body height is maintained. There i s no fracture. No spondylolisthesis or spondylolysis. Visualized solid organs are unremarkable, with the exception of the left adrenal gland which appears to be prominent and in keeping with the previous examination. There is an enlarged left paraaortic lymph node, similar to the previous examination. Symmetric attenuation of the psoas muscles. Lumbar spine vertebral body height is maintained. There is no fracture. No spondylolisthesis or spo ndylolysis. Sacral alae are preserved. Limited evaluation of the contents of the central spinal canal and neural foramina. L1-L2: No central canal stenosis or foraminal narrowing. L2-L3: No central canal stenosis or foraminal narrowing. L3-L4: No central canal stenosis or foraminal narrowing L4-L5: No significant central canal stenosis or foraminal narrowing. L5-S1: No significant central canal stenosis or foraminal narrowing. IMPRESSION: No significant central canal stenosis or foraminal narrowing POS: [facility]
[2018-03-18] MEDS ORDERED: Ondansetron ODT 8 MG TAB ONE (13:09)
[2018-03-18 13:20] LABS: #Eosinphils 0.1 thou/uL (0.0-0.7); #Lymphocytes 1.3 thou/uL (1.20-3.40); #Monocytes 0.6 thou/uL (0.11-0.59); #Neutrophils 3.6 thou/uL (1.40-6.50); %Basophils 0.4 % (0.0-1.0); %Eosinophils 1.5 % (0.0-10.0); %Lymphocytes 23.1 % (21.0-51.0); %Monocytes 11.1 % (0.0-10.0); %Neutrophils 63.9 % (42.0-75.0); Hemoglobin 10.9 g/dL (12.0-16.0); Mean Corpuscular HGB CONC 32.2 g/dL (32.0-36.0); Mean Corpuscular Hemoglobin 27.5 pg (27.0-31.0); Mean Corpuscular Volume 85.5 fl (81.0-99.0); Mean Platelet Volume 6.4 fL (7.4-10.4); Platelet Count 284 thou/uL (130-400); Red Blood Cell (RBC) Count 3.95 mill/uL (4.20-5.40); White Blood Cell (WBC) Count 5.7 thou/uL (4.8-10.8)
[2018-03-18 13:46] LABS: ALT (SGPT) 9 U/L (8-55); AST (SGOT) 15 U/L (5-34); Albumin 3.7 g/dL (3.5-5.0); Alkaline Phosphatase 99 U/L (40-150); Anion Gap 12 mmol/L (10-20); BUN (Urea Nitrogen) 16 mg/dL (9.8-20.1); Bilirubin, Total 0.2 mg/dL (0.2-1.2); Calc. Creatinine Clearance 0 mL/min (70-130); Calcium 9.8 mg/dL (7.8-10.44); Carbon Dioxide 29 mmol/L (22-29); Chloride 98 mmol/L (98-107); Estimated GFR-MDRD 75; Globulin 4.3 g/dL (2.4-3.5); Glucose 105 mg/dL (70-105); Potassium 4.5 mmol/L (3.5-5.1); Sodium 134 mmol/L (136-145)
[2018-03-18] MEDS ORDERED: traMADol HCl 50 MG TAB PO PRN (14:14)
[2018-03-18] MEDS ORDERED: Ondansetron HCl/PF 4 MG/2 ML Vial IV PRN (14:14)
[2018-03-18] MEDS ORDERED: Communication Order-Pharmacy FS ONE (14:15)
[2018-03-18] MEDS ORDERED: TETANUS AND DIPHTHERIA TOX/PF 0.5 ML DISP.SYRIN IM SCH (14:15)
--- NOTE | 2018-03-18 14:58 | PDOC.PN ---
- Subjective Encounter Start Date: 03/18/18 Encounter Start Time: 15:00 Subjective: c/o pain in right thigh/knees -: some cough, no expectoration -: no fever, chest pain/palp/sob - Objective MAR Reviewed: Yes Vital Signs & Weight: Vital Signs (12 hours) Temp Pulse Resp BP Pulse Ox 03/18/18 13:50 97.6 F 108 H 18 115/76 97 Result Diagrams: 03/18/18 13:12 03/18/18 13:12 Phys Exam - Physical Examination HEENT: PERRLA, sclera anicteric Neck: no JVD, supple Respiratory: no wheezing, no rales Cardiovascular: no significant murmur, no rub Gastrointestinal: soft, no distention, positive bowel sounds Musculoskeletal: pulses present right thigh pain+, neurovasc intact Neurological: non-focal, moves all 4 limbs Psychiatric: A&O x 3 Dx/Plan (1) Right femoral fracture Code(s): S72.91XA - UNSP FRACTURE OF RIGHT FEMUR, INIT FOR CLOS FX Status: Acute Qualifiers: Femur location: distal Fracture type: closed Comment: pathological fracture with h/o metastatic breast cancer (2) Breast cancer Status: Chronic Comment: with multiple mets (3) Paroxysmal atrial fibrillation Code(s): I48.0 - PAROXYSMAL ATRIAL FIBRILLATION Status: Chronic (4) Seizure disorder Code(s): G40.909 - EPILEPSY, UNSP, NOT INTRACTABLE, WITHOUT STATUS EPILEPTICUS Status: Chronic (5) DM2 (diabetes mellitus, type 2) Status: Chronic Qualifiers: Diabetes mellitus salvage determiner insulin use: without salvage determiner use Diabetes mellitus complication status: with unspecified complications Qualified Code(s) : E11.8 - Type 2 diabetes mellitus with unspecified complications (6) HTN (hypertension) Code(s): I10 - ESSENTIAL (PRIMARY) HYPERTENSION Status: Chronic Qualifiers: Hypertension type: essential hypertension Qualified Code(s): I10 - Essential (primary) hypertension Comment: Controlled. Continue current regimen. (7) Anxiety associated with depression Status: Chronic - Plan is going to OR in am for IM nail for pain relief and possible help with amb -: poor prognosis with multiple metastases including lung, brain, abd wall and -: --now likely in bone with fracture -: d/w -: will need skilled unit for dc plan * . Continue home meds for paroxysmal afib, htn and dm. Will f/u. D/w patient about risks for surgery and she agrees to proceed with surgery (has severe pain now and was amb well before per patient). ROLANDO is her sister, is full code. Review of Systems - Medications/Allergies Allergies/Adverse Reactions: Allergies Allergy/AdvReac Type Severity Reaction Status Date / Time Gadolinium-Containing AdvReac Mild Emesis Verified 12/02/17 12:33 Contrast Medi Medications: Current Medications Hydrocodone Bitart/Acetaminophen (Clyo 10/325) 1 tab PO Q4H PRN PRN Reason: Moderate Pain (4-6) Aspirin (Ecotrin) 81 mg PO BID [facility] Cefazolin Sodium (Ancef) 2 gm SLOW IVP ONCALL-OR [facility] Stop: 03/20/18 08:01 Fentanyl (Sublimaze) 50 mcg SLOW IVP Q30M PRN PRN Reason: Severe breakthrough pain Magnesium Hydroxide (Milk Of Magnesium) 30 ml PO DAILY PRN PRN Reason: Constipation Ondansetron HCl (Zofran) 4 mg IV Q6H PRN PRN Reason: Nausea Sodium Chloride (Flush - Normal Saline) 10 ml IVF PRN PRN PRN Reason: Saline Flush Tetanus/Diphtheria Toxoids Adsorbed (Tenivac Syringe) 0.5 ml IM ONE [facility] Stop: 03/18/18 21:00 Tramadol HCl (Ultram) 100 mg PO Q6H PRN PRN Reason: Moderate Pain (4-6)
[2018-03-18 15:08] VITALS: BMI 34.7
--- NOTE | 2018-03-18 15:27 | RAD ---
AP PELVIS 1 VIEW: HISTORY: Metastatic breast disease. FINDINGS: Sacral alae and pelvic rings are intact. Mild degenerative change of the hips. Sacrum and coccyx ar e partially obscured by bowel content. No aggressive osseous lesions are apparent. IMPRESSION: No significant abnormalities are demonstrated. POS: [facility]
--- NOTE | 2018-03-18 15:35 | RAD ---
RIGHT FEMUR 2 VIEWS: HISTORY: A 53-year-old female with a history of knee pain and a history of breast cancer with metastasis. COMPARISON: 03/18/18 knee examination. FINDINGS: There is evidence for a bone metastasis involving the lateral aspect of the right foraminal metadiaph ysis measuring 1.9 cm transversely and approximately 6 cm in craniocaudal length. This is associated with a nondisplaced pathologic fracture slightly obliquely through the metadiaphysis. IMPRESSION: Nondisplaced oblique metadiaphyseal pathologic fracture with associated bone metastasis involving the lateral aspect of the distal femoral metadiaphysis. POS: [facility]
[2018-03-18] MEDS: HYDROcodone/Acetaminophen 10/325 mg Tablet PO PRN (15:36)
--- NOTE | 2018-03-18 16:42 | CON ---
DATE OF CONSULTATION: 03/18/2018 CHIEF COMPLAINT: Right leg pain. HISTORY OF PRESENT ILLNESS: Ms. Neff is a 53-year-old female who has advanced stage breast c ancer. She has metastatic disease. She was diagnosed 12 years ago. She has had long as well as bra in mets. She denies having previous bony metastases. She has been having right knee and thigh pain over the last several weeks. This has worsened. She had difficulty ambulating this morning. She tr ied to climb stairs at the [facility] when her knee gave out. She had immediate pain and felt a popping sen sation. She could not ambulate. She was taken to the Emergency Department by EMS. She was found to have a pathologic femur fracture. The right femur was found to be involved. She does have a histor y also of recent pelvic pain and left femur pain. PAST MEDICAL HISTORY: Metastatic breast cancer as per HPI. Also, diabetes, hypertension, and obesit y. PAST SURGICAL HISTORY: Mastectomy for breast cancer, bladder repair, hysterectomy, hernia repair. T he patient is currently receiving radiation treatment for her metastatic disease. ALLERGIES: GADOLINIUM. SOCIAL HISTORY: The patient denies tobacco or alcohol use. FAMILY MEDICAL HISTORY: Coronary artery disease. REVIEW OF SYSTEMS: Positive for right leg pain, otherwise negative 10-point review of systems. PHYSICAL EXAMINATION: VITAL SIGNS: Temperature is 97.6, pulse is 108, respiratory rate 18, oxygen saturation 97, blood pre ssure is 115/76. GENERAL: She is lying supine. She is alert. She is oriented. No apparent distress. RESPIRATORY: Breathing comfortably. HEENT: Normocephalic, atraumatic. ABDOMEN: Soft, nontender and nondistended. CARDIOVASCULAR: Pulses palpable and regular. MUSCULOSKELETAL: The patient's right leg has tenderness to palpation especially at the knee and dist al femur. She has difficulty moving the leg secondary to pain. She is neurovascularly intact in the foot. She can flex and extend the ankle. She has a palpable dorsalis pedis pulse. She has well he aled scars over both ankles consistent with previous ankle fracture surgery. IMAGING: Right knee x-rays demonstrate a pathologic lytic lesion of the distal femur. There is a pa thologic fracture through this lesion which is minimally displaced. There is evidence of periosteal callus suggesting that this is a subacute pathologic lesion, although the fracture line itself appear s acute. IMPRESSION: Metastatic breast cancer in a 53-year-old female now with bony lytic lesion and patholog ic right femur fracture. PLAN: At this point, I would like to continue the patient's workup with bilateral femur x-rays and A P pelvis x-ray to evaluate for further lytic lesion and she has had some left femur pain and hip pain as well. She will have medical comanagement for her diabetes and hypertension. I have reviewed her surgical plan with her. I would recommend intramedullary nail fixation of the right distal femur to stabilize the bone and also the lytic area. This will hopefully allow her fracture to heal and allo w her improve quality of life. Goal surgery is not to eradicate the cancer or remove the tumor. She is aware of this. She wished to proceed. I will plan for this tomorrow morning. She should be n.p .o. at midnight. She will have appropriate antibiotic prophylaxis and DVT prophylaxis.
[2018-03-18] MEDS: Aspirin 81 mg Enteric Coated Tablet PO SCH (21:02)
[2018-03-19] MEDS: Dextrose 5 % And 0.9 % NaCl 1,000 ML IV SCH ×2 (00:42→18:55)
[2018-03-19] MEDS: Fentanyl 100 MCG/2 ML VIAL SLOW IVP PRN ×2 (01:48→05:51)
[2018-03-19 05:02] LABS: #Eosinphils 0.1 thou/uL (0.0-0.7); #Lymphocytes 1.4 thou/uL (1.20-3.40); #Monocytes 0.7 thou/uL (0.11-0.59); #Neutrophils 3.9 thou/uL (1.40-6.50); %Basophils 0.1 % (0.0-1.0); %Eosinophils 1.7 % (0.0-10.0); %Lymphocytes 23.2 % (21.0-51.0); %Monocytes 11.5 % (0.0-10.0); %Neutrophils 63.5 % (42.0-75.0); Hemoglobin 10.9 g/dL (12.0-16.0); Mean Corpuscular HGB CONC 32.3 g/dL (32.0-36.0); Mean Corpuscular Hemoglobin 27.4 pg (27.0-31.0); Mean Platelet Volume 6.2 fL (7.4-10.4); Platelet Count 276 thou/uL (130-400); Red Blood Cell (RBC) Count 3.98 mill/uL (4.20-5.40); White Blood Cell (WBC) Count 6.1 thou/uL (4.8-10.8)
[2018-03-19 05:27] LABS: ALT (SGPT) 8 U/L (8-55); AST (SGOT) 12 U/L (5-34); Albumin 3.6 g/dL (3.5-5.0); Alkaline Phosphatase 96 U/L (40-150); Anion Gap 13 mmol/L (10-20); BUN (Urea Nitrogen) 18 mg/dL (9.8-20.1); Bilirubin, Total 0.4 mg/dL (0.2-1.2); Calc. Creatinine Clearance 102 mL/min (70-130); Calcium 9.6 mg/dL (7.8-10.44); Carbon Dioxide 27 mmol/L (22-29); Chloride 98 mmol/L (98-107); Estimated GFR-MDRD 84; Glucose 137 mg/dL (70-105); Potassium 4.4 mmol/L (3.5-5.1); Protein, Total 7.6 g/dL (6.0-8.3); Sodium 134 mmol/L (136-145)
[2018-03-19] MEDS ORDERED: CEFAZOLIN/Water 2 GM/20 ML SYRINGE ONE (07:39)
[2018-03-19] MEDS ORDERED: CEFAZOLIN/Water 2 GM/20 ML SYRINGE SLOW IVP SCH (08:00)
[2018-03-19] MEDS: Aspirin 81 mg Enteric Coated Tablet PO SCH ×2 (08:21→22:17)
[2018-03-19] MEDS ORDERED: Fentanyl 100 MCG/2 ML VIAL ONE ×3 (08:27→09:50)
[2018-03-19] MEDS ORDERED: Promethazine HCl 25 MG/ML VIAL SLOW IVP PRN (09:20)
[2018-03-19] MEDS ORDERED: Promethazine HCl 25 MG/ML VIAL IM PRN (09:20)
[2018-03-19] MEDS ORDERED: Ondansetron HCl/PF 4 MG/2 ML Vial IVP PRN (09:20)
[2018-03-19] MEDS ORDERED: Enoxaparin Sodium 40 MG/0.4 ML SYRINGE ONE (09:33)
[2018-03-19] MEDS: HYDROcodone/Acetaminophen 10/325 mg Tablet PO PRN (11:00)
[2018-03-19] MEDS ORDERED: fentaNYL Citrate/PF 2,000 MCG in Sodium Chloride 0.9% 60 ML IV SCH (12:15)
[2018-03-19] MEDS: fentaNYL Citrate/PF 2,000 MCG in Sodium Chloride 0.9% 60 ML IV PRN (12:47)
--- NOTE | 2018-03-19 13:46 | OP ---
DATE OF PROCEDURE: 03/19/2018 OPERATION: Right femur retrograde intramedullary nail. PREOPERATIVE DIAGNOSIS: Right distal femur pathologic fracture. POSTOPERATIVE DIAGNOSIS: Right distal femur pathologic fracture. COMPLICATIONS: None. ESTIMATED BLOOD LOSS: 200 mL SURGEON: Tyshawn Mahmood M.D. CAMP GUARD: Saad Huston PA-C. IMPLANTS: Synthes retrograde femoral nail with cross lock screws. INDICATIONS: Ms. Neff is a 53-year-old female with metastatic breast cancer. She has had ap proximately 1 month of right femur pain. She felt a popping sensation and had immediate onset of kayleigh n. She was found to have a pathologic fracture through the distal femur. She was indicated for intr amedullary nail fixation to stabilize the bone and allow her to continue to mobilize. Risk of surger y was reviewed in detail. She elected to proceed. The patient was taken to the operating room. She was placed under general anesthesia. A multidiscip linary timeout was performed. She was given intravenous antibiotics. At this point, she was prepped and draped in a sterile fashion. We made a small incision over the anterior knee. We dissected down through the subcutaneous tissues to the patellar tendon, which was incised. We then palpated the distal femur. At this point, a guid ewire was placed at the appropriate start point for our retrograde nail. This was guided with intrao perative x-ray. We overdrilled the guidewire. We then placed a ball-tipped guidewire into the proxi mal femur. We measured our appropriate length. We then reamed 8.5 up to size 14. At this point, we impacted a 13 mm Synthes nail. We again used intraoperative x-ray to guide this. Finally, we place d 2 distal cross lock screws and 1 proximal cross lock screw using appropriate technique. At this po int, we thoroughly irrigated with copious lavage. We then closed our wounds in layers. A sterile dr essing was applied. The patient was taken to the recovery room in good condition without complicatio n.
--- NOTE | 2018-03-19 14:19 | RAD ---
RIGHT FEMUR INTRAOPERATIVE FLUOROSCOPY: HISTORY: Femur fracture. FINDINGS: Intraoperative fluoroscopy was provided for internal fixation as performed by Dr. Mahmood. Spot fl uoroscopic images show long medullary bolivar transfixing the femoral shaft, in anatomic alignment. POS: [facility]
[2018-03-19] MEDS ORDERED: Acetaminophen 325 MG TAB PO PRN (15:45)
[2018-03-19] MEDS ORDERED: Ibuprofen 200 MG TAB PO PRN (15:46)
[2018-03-19] MEDS: CEFAZOLIN/Water 2 GM/20 ML SYRINGE SLOW IVP SCH (16:30)
[2018-03-19] MEDS: Acetaminophen 325 MG TAB PO PRN (16:30)
[2018-03-19] MEDS ORDERED: PROPOFOL 200 MG/20 ML VIAL ONE (18:14)
[2018-03-19] MEDS ORDERED: Ondansetron HCl/PF 4 MG/2 ML Vial ONE (18:14)
[2018-03-19] MEDS ORDERED: PHENYLEPHRINE-NS 100 MCG/ML 10 ML SYRINGE ONE (18:14)
[2018-03-19] MEDS ORDERED: Lidocaine 1% PF 5 ML VIAL ONE (18:14)
[2018-03-19] MEDS ORDERED: diphenhydrAMINE 50 MG/ML VIAL IVP SCH (21:45)
[2018-03-20] MEDS: CEFAZOLIN/Water 2 GM/20 ML SYRINGE SLOW IVP SCH (00:56)
[2018-03-20] MEDS: Acetaminophen 325 MG TAB PO PRN ×3 (03:47→21:30)
[2018-03-20] MEDS: fentaNYL Citrate/PF 2,000 MCG in Sodium Chloride 0.9% 60 ML IV PRN ×2 (04:36→21:17)
[2018-03-20] MEDS ORDERED: diphenhydrAMINE 50 MG/ML VIAL IVP PRN (05:00)
[2018-03-20 05:01] LABS: Hemoglobin 9.6 g/dL (12.0-16.0); Mean Corpuscular HGB CONC 32.9 g/dL (32.0-36.0); Mean Corpuscular Volume 85.1 fl (81.0-99.0); Mean Platelet Volume 6.8 fL (7.4-10.4); Platelet Count 219 thou/uL (130-400); Red Blood Cell (RBC) Count 3.42 mill/uL (4.20-5.40)
[2018-03-20 05:17] LABS: Anion Gap 14 mmol/L (10-20); BUN (Urea Nitrogen) 12 mg/dL (9.8-20.1); Calc. Creatinine Clearance 107 mL/min (70-130); Carbon Dioxide 24 mmol/L (22-29); Chloride 101 mmol/L (98-107); Estimated GFR-MDRD 89; Glucose 171 mg/dL (70-105); Potassium 4.5 mmol/L (3.5-5.1); Sodium 134 mmol/L (136-145)
[2018-03-20] MEDS: FLUoxetine HCl 20 MG CAP PO SCH ×2 (08:39→21:30)
[2018-03-20] MEDS: metFORMIN 500 MG TAB PO SCH ×2 (08:39→17:21)
[2018-03-20] MEDS: Aspirin 81 mg Enteric Coated Tablet PO SCH ×2 (08:39→21:30)
[2018-03-20] MEDS: Dronedarone HCl 400 MG TAB PO SCH ×2 (08:40→17:21)
[2018-03-20] MEDS: Enoxaparin Sodium 40 MG/0.4 ML SYRINGE SC SCH (08:40)
[2018-03-20] MEDS: Dextrose 5 % And 0.9 % NaCl 1,000 ML IV SCH (08:44)
--- NOTE | 2018-03-20 10:33 | PDOC.PN ---
- Subjective Encounter Start Date: 03/20/18 Encounter Start Time: 08:30 Subjective: c/o pain at operated site -: no sob or chest pain -: has not amb yet post surgery - Objective MAR Reviewed: Yes Vital Signs & Weight: Vital Signs (12 hours) Temp Pulse Resp BP Pulse Ox 03/20/18 08:00 98.5 F 113 H 15 104/67 91 L 03/20/18 04:35 99.2 F 112 H 16 109/74 90 L 03/20/18 00:00 98.7 F 104 H 18 105/70 100 I&O: 03/19/18 03/20/18 03/21/18 06:59 06:59 06:59 Intake Total 2130 1180 Output Total 990 850 Balance 1140 330 Result Diagrams: 03/20/18 04:30 03/20/18 04:30 Additional Labs: Accuchecks 03/20/18 03/19/18 05:33 20:49 POC Glucose 190 H 179 H Phys Exam - Physical Examination HEENT: PERRLA, moist MMs Neck: no JVD, supple Respiratory: no wheezing, no rales Cardiovascular: RRR, no significant murmur Gastrointestinal: soft, non-tender, positive bowel sounds Musculoskeletal: no edema, pulses present Neurological: non-focal, moves all 4 limbs Psychiatric: normal affect, A&O x 3 Dx/Plan (1) Right femoral fracture Code(s): S72.91XA - UNSP FRACTURE OF RIGHT FEMUR, INIT FOR CLOS FX Status: Acute Qualifiers: Femur location: distal Fracture type: closed Comment: pathological fracture with h/o metastatic breast cancer, s/o surgery 03/19/2018 (2) Breast cancer Status: Chronic Comment: with multiple mets (3) Paroxysmal atrial fibrillation Code(s): I48.0 - PAROXYSMAL ATRIAL FIBRILLATION Status: Chronic (4) Seizure disorder Code(s): G40.909 - EPILEPSY, UNSP, NOT INTRACTABLE, WITHOUT STATUS EPILEPTICUS Status: Chronic (5) DM2 (diabetes mellitus, type 2) Status: Chronic Qualifiers: Diabetes mellitus senior living insulin use: without senior living use Diabetes mellitus complication status: with unspecified complications Qualified Code(s) : E11.8 - Type 2 diabetes mellitus with unspecified complications (6) HTN (hypertension) Code(s): I10 - ESSENTIAL (PRIMARY) HYPERTENSION Status: Chronic Qualifiers: Hypertension type: essential hypertension Qualified Code(s): I10 - Essential (primary) hypertension Comment: Controlled. Continue current regimen. 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 Review of Systems - Medications/Allergies Allergies/Adverse Reactions: Allergies Allergy/AdvReac Type Severity Reaction Status Date / Time Gadolinium-Containing AdvReac Mild Emesis Verified 12/02/17 12:33 Contrast Medi Medications: Current Medications Acetaminophen (Tylenol) 325 mg PO Q6H PRN PRN Reason: Mild Pain (1-2) Acetaminophen (Tylenol) 650 mg PO Q6H PRN PRN Reason: Mild Pain (3-4) Last Admin: 03/20/18 03:47 Dose: 650 mg Aspirin (Ecotrin) 81 mg PO BID [facility] Last Admin: 03/20/18 08:39 Dose: 81 mg Diphenhydramine HCl (Benadryl) 25 mg PO Q6H PRN PRN Reason: Itching & Insomnia Dronedarone (Multaq) 400 mg PO BID-WM [facility] Last Admin: 03/20/18 08:40 Dose: 400 mg Enoxaparin Sodium (Lovenox) 40 mg SC 0900 [facility] Last Admin: 03/20/18 08:40 Dose: 40 mg Fentanyl (Duragesic) 25 mcg TD Q3D [facility] Fluoxetine HCl (Prozac) 20 mg PO BID [facility] Last Admin: 03/20/18 08:39 Dose: 20 mg Dextrose/Sodium Chloride (D5 0.9% Ns) 1,000 mls @ 50 mls/hr IV .Q20H [facility] Last Admin: 03/20/18 08:44 Dose: 1,000 mls Fentanyl Citrate 2,000 mcg/ (Sodium Chloride) 100 mls @ 0 mls/hr IV INF PRN; As Directed PRN Reason: Pain Last Admin: 03/20/18 04:36 Dose: 100 mls Ibuprofen (Motrin) 400 mg PO Q6H PRN PRN Reason: Moderate Pain (5-6) Magnesium Hydroxide (Milk Of Magnesium) 30 ml PO DAILY PRN PRN Reason: Constipation Metformin HCl (Glucophage) 500 mg PO BID-[facility] Last Admin: 03/20/18 08:39 Dose: 500 mg Ondansetron HCl (Zofran) 4 mg IV Q6H PRN PRN Reason: Nausea Sodium Chloride (Flush - Normal Saline) 10 ml IVF PRN PRN PRN Reason: Saline Flush
[2018-03-21] MEDS: metFORMIN 500 MG TAB PO SCH ×2 (08:55→17:38)
[2018-03-21] MEDS: Aspirin 81 mg Enteric Coated Tablet PO SCH ×2 (08:55→20:01)
[2018-03-21] MEDS: Enoxaparin Sodium 40 MG/0.4 ML SYRINGE SC SCH (08:55)
[2018-03-21] MEDS: Acetaminophen 325 MG TAB PO PRN ×2 (08:55→17:40)
[2018-03-21] MEDS: FLUoxetine HCl 20 MG CAP PO SCH ×2 (08:55→20:01)
[2018-03-21] MEDS: Dronedarone HCl 400 MG TAB PO SCH ×2 (08:55→17:38)
[2018-03-21] MEDS: Dextrose 5 % And 0.9 % NaCl 1,000 ML IV SCH ×2 (10:30→23:17)
[2018-03-21] MEDS ORDERED: Ondansetron ODT 4 MG TAB PO PRN (11:32)
--- NOTE | 2018-03-21 12:23 | PDOC.PN ---
- Subjective Encounter Start Date: 03/21/18 Encounter Start Time: 09:00 Pt seen for followup re: DM2. Reports R hip pain. No chest pain, shortness of breath, fevers, chills, nausea or vomiting. - Objective Vital Signs & Weight: Vital Signs (12 hours) Temp Pulse Resp BP Pulse Ox 03/21/18 08:00 98.2 F 108 H 20 105/73 93 L 03/21/18 03:21 99.1 F 102 H 16 109/70 91 L I&O: 03/20/18 03/21/18 03/22/18 06:59 06:59 06:59 Intake Total 2130 3030 1370 Output Total 990 1250 450 Balance 1140 1780 920 Result Diagrams: 03/20/18 04:30 03/20/18 04:30 Phys Exam - Physical Examination Obese HEENT: moist MMs Neck: supple Respiratory: clear to auscultation bilateral Cardiovascular: RRR Gastrointestinal: soft Neurological: moves all 4 limbs Psychiatric: normal affect Dx/Plan (1) DM2 (diabetes mellitus, type 2) Status: Chronic Qualifiers: Diabetes mellitus terminal manager insulin use: without terminal manager use Diabetes mellitus complication status: with unspecified complications Qualified Code(s) : E11.8 - Type 2 diabetes mellitus with unspecified complications Comment: continue accuchecks, insulin sliding scale (2) HTN (hypertension) Code(s): I10 - ESSENTIAL (PRIMARY) HYPERTENSION Status: Chronic Qualifiers: Hypertension type: essential hypertension Qualified Code(s): I10 - Essential (primary) hypertension Comment: Controlled and at goal. (3) Paroxysmal atrial fibrillation Code(s): I48.0 - PAROXYSMAL ATRIAL FIBRILLATION Status: Chronic Comment: stable (4) Seizure disorder Code(s): G40.909 - EPILEPSY, UNSP, NOT INTRACTABLE, WITHOUT STATUS EPILEPTICUS Status: Chronic Comment: stable - Plan * . Review of Systems - Review of Systems Constitutional: negative: fever, chills, sweats, weakness, malaise Cardiovascular: negative: chest pain, palpitations, orthopnea, paroxysmal nocturnal dyspnea, edema, light headedness Musculoskeletal: Other (hip pain) - Medications/Allergies Allergies/Adverse Reactions: Allergies Allergy/AdvReac Type Severity Reaction Status Date / Time Gadolinium-Containing AdvReac Mild Emesis Verified 12/02/17 12:33 Contrast Medi Medications: Current Medications Acetaminophen (Tylenol) 325 mg PO Q6H PRN PRN Reason: Mild Pain (1-2) Acetaminophen (Tylenol) 650 mg PO Q6H PRN PRN Reason: Mild Pain (3-4) Last Admin: 03/21/18 08:55 Dose: 650 mg Aspirin (Ecotrin) 81 mg PO BID [facility] Last Admin: 03/21/18 08:55 Dose: 81 mg Diphenhydramine HCl (Benadryl) 25 mg PO Q6H PRN PRN Reason: Itching & Insomnia [facility] Admin: 03/21/18 08:55 Dose: 400 mg Enoxaparin Sodium (Lovenox) 40 mg SC 0900 [facility] Last Admin: 03/21/18 08:55 Dose: 40 mg Fentanyl (Duragesic) 25 mcg TD Q3D [facility] Last Admin: 03/21/18 11:36 Dose: 25 mcg Fluoxetine HCl (Prozac) 20 mg PO BID [facility] Last Admin: 03/21/18 08:55 Dose: 20 mg Dextrose/Sodium Chloride (D5 0.9% Ns) 1,000 mls @ 50 mls/hr IV .Q20H [facility] Last Admin: 03/21/18 10:30 Dose: Not Given Fentanyl Citrate 2,000 mcg/ (Sodium Chloride) 100 mls @ 0 mls/hr IV INF PRN; As Directed PRN Reason: Pain Last Admin: 03/20/18 21:17 Dose: 100 mls Ibuprofen (Motrin) 400 mg PO Q6H PRN PRN Reason: Moderate Pain (5-6) Magnesium Hydroxide (Milk Of Magnesium) 30 ml PO DAILY PRN PRN Reason: Constipation [facility] Last Admin: 03/21/18 08:55 Dose: 500 mg Ondansetron HCl (Zofran Odt) 4 mg PO Q6H PRN PRN Reason: Nausea Last Admin: 03/21/18 11:36 Dose: 4 mg Sodium Chloride (Flush - Normal Saline) 10 ml IVF PRN PRN PRN Reason: Saline Flush
--- NOTE | 2018-03-21 12:47 | EKG ---
Test Reason : Blood Pressure : / mmHG Vent. Rate : 101 BPM Atrial Rate : 101 BPM P-R Int : 138 ms QRS Dur : 066 ms QT Int : 370 ms P-R-T Axes : 044 040 024 degrees QTc Int : 479 ms Sinus tachycardia Otherwise normal ECG When compared with ECG of 03-JAN-2018 17:57, (Unconfirmed) No significant change was found Confirmed by CADEN COBIAN M.D. ([id number]), editor trade journal KULDEEP PAUL ([id number] on 03/21/2018 12:46:56 PM Referred By: TING Confirmed By:CADEN COBIAN M.D.
[2018-03-21] MEDS: diphenhydrAMINE 25 MG CAP PO PRN ×2 (15:35→21:21)
[2018-03-21] MEDS: fentaNYL Citrate/PF 2,000 MCG in Sodium Chloride 0.9% 60 ML IV PRN (19:45)
[2018-03-21] MEDS ORDERED: Dextrose 5% in Water 1,000 ML IV PRN (22:27)
[2018-03-21] MEDS ORDERED: HumaLOG 300 UNITS/3 ML VIAL SC PRN (22:27)
[2018-03-21] MEDS ORDERED: Dextrose 50% Abboject 50 ML SYRINGE IVP PRN (22:27)
[2018-03-21] MEDS ORDERED: Docusate 100 MG CAP PO SCH (22:30)
[2018-03-22] MEDS: Enoxaparin Sodium 40 MG/0.4 ML SYRINGE SC SCH (08:31)
[2018-03-22] MEDS: Aspirin 81 mg Enteric Coated Tablet PO SCH ×2 (08:31→21:47)
[2018-03-22] MEDS: Docusate 100 MG CAP PO SCH ×2 (08:31→21:47)
[2018-03-22] MEDS: metFORMIN 500 MG TAB PO SCH ×2 (08:31→17:55)
[2018-03-22] MEDS: Dronedarone HCl 400 MG TAB PO SCH ×2 (08:31→17:55)
[2018-03-22] MEDS: FLUoxetine HCl 20 MG CAP PO SCH ×2 (08:31→21:47)
--- NOTE | 2018-03-22 10:42 | RAD ---
RIGHT FOOT THREE VIEWS; HISTORY: Increased pain. COMPARISON: None. FINDINGS: There is moderate soft tissue edema throughout the foot. Moderate dorsal and plantar calcaneal spurs . No acute displaced fracture or malalignment. Soft tissue phleboliths are appreciated in the forefoot. Mild enthesopathic changes at the peroneus brevis insertion. Mild osseous demineralization. IMPRESSION: 1. Moderate soft tissue edema. 2. No acute osseous abnormality. POS: MATT
[2018-03-22] MEDS: diphenhydrAMINE 25 MG CAP PO PRN (15:47)
[2018-03-22] MEDS: Acetaminophen 325 MG TAB PO PRN (15:47)
--- NOTE | 2018-03-22 16:39 | PDOC.PN ---
- Subjective Encounter Start Date: 03/22/18 Encounter Start Time: 16:35 Subjective: f/u for DM, HTN and s/p R distal femur fx with IM nail. No new complaints. - Objective MAR Reviewed: Yes Vital Signs & Weight: Vital Signs (12 hours) Temp Pulse Resp BP Pulse Ox 03/22/18 15:35 99.0 F 98 18 103/69 99 03/22/18 12:05 98.1 F 100 18 96/64 97 03/22/18 08:27 99.9 F H 104 H 20 100/70 97 03/22/18 08:00 99.9 F H 104 H 20 I&O: 03/21/18 03/22/18 03/23/18 06:59 06:59 06:59 Intake Total 3030 3010 Output Total 1250 1125 Balance 1780 1885 Result Diagrams: 03/20/18 04:30 03/20/18 04:30 Additional Labs: Accuchecks 03/22/18 03/22/18 03/21/18 11:04 06:16 20:58 POC Glucose 162 H 127 H 185 H Radiology Reviewed by me: Yes (R foot 3 views - no acute fx) Phys Exam - Physical Examination Constitutional: NAD HEENT: PERRLA, oral pharynx no lesions Neck: no nodes, no JVD, supple, full ROM Respiratory: no wheezing, no rales, no rhonchi, clear to auscultation bilateral S1, S2 Cardiovascular: RRR, no significant murmur, no rub, gallop Gastrointestinal: soft, non-tender, no distention, positive bowel sounds RLE with edema, surgical wound intact Musculoskeletal: pulses present Neurological: normal sensation, moves all 4 limbs Psychiatric: normal affect, A&O x 3 Skin: no rash, normal turgor, cap refill <2 seconds Dx/Plan (1) DM2 (diabetes mellitus, type 2) Status: Chronic Qualifiers: Diabetes mellitus shelter insulin use: without intermission coordinator use Diabetes mellitus complication status: with unspecified complications Qualified Code(s) : E11.8 - Type 2 diabetes mellitus with unspecified complications Comment: Continue ISS, Metformin 500mg daily, serial accuchecks (2) Right femoral fracture Code(s): S72.91XA - UNSP FRACTURE OF RIGHT FEMUR, INIT FOR CLOS FX Status: Acute Qualifiers: Femur location: distal Fracture type: closed Comment: pathological fracture with h/o metastatic breast cancer, POD #3, pain control, PT/OT (3) Hypotension Status: Chronic Comment: Hold all BP meds, serial monitoring (4) Breast cancer Status: Chronic Comment: Stage IV disease on current chemotx, consider Palliative care/hospice - Plan PT/OT, social welfare administrator, incentive spirometry Stable overall -: PT/OT for mobilization -: CM for services -: Continue ISS, Metformin -: Continue ASA 81mg BID * .
[2018-03-22] MEDS: fentaNYL Citrate/PF 2,000 MCG in Sodium Chloride 0.9% 60 ML IV PRN (19:17)
[2018-03-23] MEDS: Milk Of Magnesia 30 ML UDCUP PO PRN (05:27)
[2018-03-23] MEDS: Acetaminophen 325 MG TAB PO PRN ×2 (05:28→22:03)
[2018-03-23] MEDS: Dronedarone HCl 400 MG TAB PO SCH ×2 (08:51→16:14)
[2018-03-23] MEDS: FLUoxetine HCl 20 MG CAP PO SCH ×2 (08:51→22:04)
[2018-03-23] MEDS: metFORMIN 500 MG TAB PO SCH ×2 (08:51→16:14)
[2018-03-23] MEDS: Aspirin 81 mg Enteric Coated Tablet PO SCH ×2 (08:51→22:03)
[2018-03-23] MEDS: Enoxaparin Sodium 40 MG/0.4 ML SYRINGE SC SCH (08:51)
[2018-03-23] MEDS: Docusate 100 MG CAP PO SCH ×2 (08:51→22:04)
[2018-03-23] MEDS: fentaNYL Citrate/PF 2,000 MCG in Sodium Chloride 0.9% 60 ML IV PRN (19:43)
--- NOTE | 2018-03-23 19:48 | PDOC.PN ---
- Subjective Encounter Start Date: 03/23/18 Encounter Start Time: 19:30 Subjective: f/u DM and s/p R femur fx with IM nail POD#4. Still on FUR BLOWER for pain -: control. No other new complaints. - Objective MAR Reviewed: Yes Vital Signs & Weight: Vital Signs (12 hours) Temp Pulse Resp BP Pulse Ox 03/23/18 15:47 98.1 F 106 H 18 126/78 99 03/23/18 11:20 97.7 F 101 H 18 105/69 97 03/23/18 08:00 98.4 F 100 18 I&O: 03/22/18 03/23/18 03/24/18 06:59 06:59 06:59 Intake Total 3010 2010 700 Output Total 1125 1000 Balance 1885 1010 700 Result Diagrams: 03/20/18 04:30 03/20/18 04:30 Additional Labs: Accuchecks 03/23/18 03/23/18 03/23/18 15:50 11:24 05:51 POC Glucose 125 H 163 H 118 H 03/22/18 21:27 POC Glucose 121 H Phys Exam - Physical Examination Constitutional: NAD HEENT: PERRLA, sclera anicteric, oral pharynx no lesions Neck: no nodes, no JVD, supple, full ROM Respiratory: no wheezing, no rales, no rhonchi, clear to auscultation bilateral S1, S2 Cardiovascular: RRR, no significant murmur, no rub, gallop Gastrointestinal: soft, non-tender, no distention, positive bowel sounds RLE with edema and surgical incision intact Musculoskeletal: pulses present Neurological: normal sensation, moves all 4 limbs Psychiatric: A&O x 3 Skin: no rash, normal turgor, cap refill <2 seconds Dx/Plan (1) DM2 (diabetes mellitus, type 2) Status: Chronic Qualifiers: Diabetes mellitus assistant professor of criminal justice insulin use: without assistant professor of criminal justice use Diabetes mellitus complication status: with unspecified complications Qualified Code(s) : E11.8 - Type 2 diabetes mellitus with unspecified complications Comment: Continue ISS, Metformin 500mg daily, serial accuchecks (2) Right femoral fracture Code(s): S72.91XA - UNSP FRACTURE OF RIGHT FEMUR, INIT FOR CLOS FX Status: Acute Qualifiers: Femur location: distal Fracture type: closed Comment: pathological fracture with h/o metastatic breast cancer, POD #4, pain control, PT/OT (3) Hypotension Status: Chronic Comment: Hold all BP meds, serial monitoring (4) Breast cancer Status: Chronic Comment: Stage IV disease on current chemotx, consider Palliative care/hospice - Plan PT/OT, rn social services, DVT proph w/lovenox, DVT proph w/SCDs Continue ASA 81mg BID -: Pain control as clinically indicated -: CM for Rehab options -: ISS, Metformin, ADA -: Likely can d/c in 24h * .
[2018-03-24] MEDS ORDERED: Bisacodyl 10 MG SUPP PR PRN (02:57)
[2018-03-24 04:32] LABS: Anion Gap 11 mmol/L (10-20); BUN (Urea Nitrogen) 11 mg/dL (9.8-20.1); Calc. Creatinine Clearance 135 mL/min (70-130); Calcium 8.7 mg/dL (7.8-10.44); Carbon Dioxide 25 mmol/L (22-29); Chloride 104 mmol/L (98-107); Estimated GFR-MDRD Greater than 90; Glucose 113 mg/dL (70-105); Magnesium 1.7 mg/dL (1.6-2.6); Sodium 136 mmol/L (136-145)
[2018-03-24 05:45] LABS: Eosinophils 2 % (0-10); Hemoglobin 7.1 g/dL (12.0-16.0); Hypochromia SLIGHT = 6-15 cells (100X) (0-5/hpf); Lymphocytes 17 % (21-51); MDiff Complete? YES; Mean Corpuscular HGB CONC 33.5 g/dL (32.0-36.0); Mean Corpuscular Hemoglobin 29.1 pg (27.0-31.0); Mean Corpuscular Volume 86.8 fl (81.0-99.0); Mean Platelet Volume 7.3 fL (7.4-10.4); Monocytes 14 % (0-10); Neutrophil 66 % (42-75); PLT Morphology Comment Appears Adequate; Platelet Count 151 thou/uL (130-400); RBC Distribution Width 13.1 % (11.5-14.5); Reactive Lymphocytes 1 % (0-10); Red Blood Cell (RBC) Count 2.43 mill/uL (4.20-5.40); White Blood Cell (WBC) Count 7.3 thou/uL (4.8-10.8)
[2018-03-24] MEDS ORDERED: Furosemide 20 MG/2 ML VIAL IVP SCH (07:15)
[2018-03-24] MEDS: Polyethylene Glycol 3350 17 GM Packet PO SCH (08:22)
[2018-03-24] MEDS: Aspirin 81 mg Enteric Coated Tablet PO SCH ×2 (08:22→19:59)
[2018-03-24] MEDS: Dronedarone HCl 400 MG TAB PO SCH ×2 (08:23→17:00)
[2018-03-24] MEDS: metFORMIN 500 MG TAB PO SCH ×2 (08:23→17:00)
[2018-03-24] MEDS: Milk Of Magnesia 30 ML UDCUP PO PRN (08:23)
[2018-03-24] MEDS: FLUoxetine HCl 20 MG CAP PO SCH ×2 (08:23→19:59)
[2018-03-24] MEDS: Senokot S 8.6-50 MG TAB PO SCH ×2 (08:23→19:59)
[2018-03-24] MEDS: Enoxaparin Sodium 40 MG/0.4 ML SYRINGE SC SCH (08:28)
--- NOTE | 2018-03-24 11:28 | PDOC.PN ---
- Subjective Encounter Start Date: 03/24/18 Encounter Start Time: 11:20 Subjective: f/u for DM and s/p R femur fx with IM nail POD #5. Receiving 2u PRBC 's -: today for post-op anemia. c/o R forearm pain for several weeks. - Objective MAR Reviewed: Yes Vital Signs & Weight: Vital Signs (12 hours) Temp Pulse Pulse Resp BP BP Pulse Ox 03/24/18 10:26 99.0 F 99 20 102/71 97 03/24/18 07:06 98.3 F 99 16 96/65 96 03/24/18 04:51 98.2 F 92 16 99/66 97 03/24/18 00:51 98.5 F 103 H 18 91/53 L 96 I&O: 03/23/18 03/24/18 03/25/18 06:59 06:59 06:59 Intake Total 2009 1060 0 Output Total 1000 450 Balance 1010 610 0 Result Diagrams: 03/24/18 04:00 03/24/18 04:00 Additional Labs: Accuchecks 03/24/18 03/23/18 03/23/18 05:23 20:32 15:50 POC Glucose 120 H 122 H 125 H 03/23/18 11:24 POC Glucose 163 H Laboratory Tests 03/20/18 03/24/18 04:30 04:00 Hgb 9.6 L Magnesium 1.7 Phys Exam - Physical Examination Constitutional: NAD HEENT: PERRLA, sclera anicteric, oral pharynx no lesions Neck: no nodes, no JVD, supple, full ROM Respiratory: no wheezing, no rales, no rhonchi, clear to auscultation bilateral S1, S2 Cardiovascular: RRR, no significant murmur, no rub, gallop Gastrointestinal: soft, non-tender, no distention, positive bowel sounds RLE with edema and surgical incision intact RUE with mild TTP in mid-forearm, A/PROM intact Musculoskeletal: pulses present Neurological: normal sensation, moves all 4 limbs Psychiatric: normal affect, A&O x 3 Skin: no rash, normal turgor, cap refill <2 seconds Dx/Plan (1) DM2 (diabetes mellitus, type 2) Status: Chronic Qualifiers: Diabetes mellitus nursing home insulin use: without long term care phlebotomist use Diabetes mellitus complication status: with unspecified complications Qualified Code(s) : E11.8 - Type 2 diabetes mellitus with unspecified complications Comment: Continue ISS, Metformin 500mg daily, serial accuchecks (2) Right femoral fracture Code(s): S72.91XA - UNSP FRACTURE OF RIGHT FEMUR, INIT FOR CLOS FX Status: Acute Qualifiers: Femur location: distal Fracture type: closed Comment: pathological fracture with h/o metastatic breast cancer, POD #5, pain control, PT/OT (3) Hypotension Status: Chronic Comment: Hold all BP meds, serial monitoring (4) Breast cancer Status: Chronic Comment: Stage IV disease on current chemotx, consider Palliative care/hospice (5) Anemia due to blood loss, acute Code(s): D62 - ACUTE POSTHEMORRHAGIC ANEMIA Status: Acute Comment: Post-op anemia, transfusing 2u PRBC's today, serial H/H - Plan PT/OT, social group worker, DVT proph w/SCDs Stable overall -: Transfuse 2u PRBC's today -: PT for mobilization -: Pain control with PREPRESS TECHNICIAN/Duragesic patch -: X-rays RUE r/o metastatic lesions * AM lab: CBC * Rehab options pending
[2018-03-24] MEDS: Acetaminophen 325 MG TAB PO PRN (13:36)
--- NOTE | 2018-03-24 14:15 | RAD ---
TWO VIEWS RIGHT FOREARM: Comparison: None. History: Persistent pain in the forearm. History of breast cancer. FINDINGS: Two views of the right forearm shows loss of the bony cortex along the dorsal aspect of the mid porti on of the radius. This is suspicious for a metastatic lesion. This measures 2.1 cm in size. No other osseous lesions are identified. IMPRESSION: Suspicious lesion in the dorsal cortex of the radius, likely representing a metastatic lesion. No pat hologic fracture is seen at this time. POS: MATT
[2018-03-24 14:21] LABS: Hemoglobin 9.6 g/dL (12.0-16.0); Platelet Count 192 thou/uL (130-400)
[2018-03-24] MEDS: fentaNYL Citrate/PF 2,000 MCG in Sodium Chloride 0.9% 60 ML IV PRN (19:37)
[2018-03-24] MEDS: diphenhydrAMINE 25 MG CAP PO PRN (20:01)
[2018-03-24 20:43] LABS: Hemoglobin 9.6 g/dL (12.0-16.0); Platelet Count 170 thou/uL (130-400)
[2018-03-25 04:33] LABS: Eosinophils 5 % (0-10); Hemoglobin 9.3 g/dL (12.0-16.0); Lymphocytes 11 % (21-51); MDiff Complete? YES; Mean Corpuscular HGB CONC 33.3 g/dL (32.0-36.0); Mean Corpuscular Hemoglobin 28.6 pg (27.0-31.0); Mean Platelet Volume 7.4 fL (7.4-10.4); Metamyelocyte 1 % (0-0); Monocytes 15 % (0-10); Neutrophil 68 % (42-75); PLT Morphology Comment Appears Adequate; Platelet Count 183 thou/uL (130-400); RBC Distribution Width 13.2 % (11.5-14.5); Red Blood Cell (RBC) Count 3.26 mill/uL (4.20-5.40); White Blood Cell (WBC) Count 7.6 thou/uL (4.8-10.8)
[2018-03-25] MEDS: diphenhydrAMINE 25 MG CAP PO PRN ×2 (05:35→19:46)
[2018-03-25] MEDS: Aspirin 81 mg Enteric Coated Tablet PO SCH ×2 (08:27→19:43)
[2018-03-25] MEDS: Enoxaparin Sodium 40 MG/0.4 ML SYRINGE SC SCH (08:27)
[2018-03-25] MEDS: FLUoxetine HCl 20 MG CAP PO SCH ×2 (08:27→19:43)
[2018-03-25] MEDS: Dronedarone HCl 400 MG TAB PO SCH ×2 (08:27→17:02)
[2018-03-25] MEDS: metFORMIN 500 MG TAB PO SCH ×2 (08:27→17:02)
[2018-03-25] MEDS: Polyethylene Glycol 3350 17 GM Packet PO SCH (08:28)
[2018-03-25] MEDS: Senokot S 8.6-50 MG TAB PO SCH ×2 (08:28→19:43)
[2018-03-25] MEDS: guaiFENesin ER 600 MG TAB PO SCH (17:02)
[2018-03-25] MEDS: fentaNYL Citrate/PF 2,000 MCG in Sodium Chloride 0.9% 60 ML IV PRN (17:27)
--- NOTE | 2018-03-25 22:04 | PDOC.PN ---
- Subjective Encounter Start Date: 03/25/18 Encounter Start Time: 18:00 Subjective: f/u R femur fx with pathological fx POD #6. s/p 2u PRBC's for post- op -: anemia. No new complaints. R forearm x-rays showing mets to radius. - Objective MAR Reviewed: Yes Vital Signs & Weight: Vital Signs (12 hours) Temp Pulse Resp BP Pulse Ox 03/25/18 20:28 100.0 F H 89 16 102/71 95 03/25/18 20:00 97.4 F L 94 16 03/25/18 15:46 97.4 F L 94 16 98/53 L 93 L 03/25/18 11:11 97.9 F 94 15 104/70 100 I&O: 03/24/18 03/25/18 03/26/18 06:59 06:59 06:59 Intake Total 1060 4680 1210 Output Total 450 1950 600 Balance 610 2730 610 Result Diagrams: 03/25/18 03:30 03/24/18 04:00 Additional Labs: Accuchecks 03/25/18 03/25/18 03/25/18 21:04 15:37 10:44 POC Glucose 95 127 H 145 H 03/25/18 03/24/18 05:34 21:05 POC Glucose 121 H 127 H Radiology Reviewed by me: Yes (RUE x-ray - metastatic lesion in radius, no path fx) Phys Exam - Physical Examination Constitutional: NAD HEENT: PERRLA, sclera anicteric, oral pharynx no lesions Neck: no nodes, no JVD, supple, full ROM Respiratory: no wheezing, no rales, no rhonchi, clear to auscultation bilateral S1, S2 Cardiovascular: RRR, no significant murmur, no rub, gallop Gastrointestinal: soft, non-tender, no distention, positive bowel sounds RLE with edema and post-surgical changes Musculoskeletal: pulses present Neurological: normal sensation, moves all 4 limbs Psychiatric: normal affect, A&O x 3 Skin: no rash, normal turgor, cap refill <2 seconds Dx/Plan (1) DM2 (diabetes mellitus, type 2) Status: Chronic Qualifiers: Diabetes mellitus residential insulin use: without residential use Diabetes mellitus complication status: with unspecified complications Qualified Code(s) : E11.8 - Type 2 diabetes mellitus with unspecified complications Comment: Continue ISS, Metformin 500mg daily, serial accuchecks (2) Right femoral fracture Code(s): S72.91XA - UNSP FRACTURE OF RIGHT FEMUR, INIT FOR CLOS FX Status: Acute Qualifiers: Femur location: distal Fracture type: closed Comment: pathological fracture with h/o metastatic breast cancer, POD #6, pain control, PT/OT (3) Hypotension Status: Chronic Comment: Hold all BP meds, serial monitoring (4) Breast cancer Status: Chronic Comment: Stage IV disease with plans for chemoradio tx after d /c, consider Palliative care/hospice (5) Anemia due to blood loss, acute Code(s): D62 - ACUTE POSTHEMORRHAGIC ANEMIA Status: Acute Comment: Post-op anemia, s/p 2u PRBC's today, serial H/H (6) Bony metastasis Code(s): C79.51 - SECONDARY MALIGNANT NEOPLASM OF BONE Status: Acute Comment : R radius metastasis, plan for ORIF with likelihood of fx, XRT on d/c - Plan PT/OT, psychosocial rehabilitation counselor, out of bed/ambulate, DVT proph w/SCDs Stable overall -: Continue Pain control, transition off FISH PITCHER -: Avoid all antihypertensives -: CM for rehab options -: Plan for ORIF R radius in am * Consider Palliative/Hospice evaluation
[2018-03-26] MEDS ORDERED: Fentanyl 100 MCG/2 ML VIAL ONE ×2 (08:59→10:51)
[2018-03-26] MEDS ORDERED: CEFAZOLIN/Water 2 GM/20 ML SYRINGE ONE (08:59)
[2018-03-26] MEDS ORDERED: Promethazine HCl 25 MG/ML VIAL SLOW IVP PRN (10:44)
[2018-03-26] MEDS ORDERED: Promethazine HCl 25 MG/ML VIAL IM PRN (10:44)
[2018-03-26] MEDS ORDERED: Ondansetron HCl/PF 4 MG/2 ML Vial IVP PRN (10:44)
[2018-03-26] MEDS: fentaNYL Citrate/PF 2,000 MCG in Sodium Chloride 0.9% 60 ML IV PRN (12:18)
[2018-03-26] MEDS: Dronedarone HCl 400 MG TAB PO SCH ×2 (12:22→17:02)
[2018-03-26] MEDS: Polyethylene Glycol 3350 17 GM Packet PO SCH (12:22)
[2018-03-26] MEDS: guaiFENesin ER 600 MG TAB PO SCH ×2 (12:22→20:52)
[2018-03-26] MEDS: Senokot S 8.6-50 MG TAB PO SCH ×2 (12:22→21:00)
[2018-03-26] MEDS: FLUoxetine HCl 20 MG CAP PO SCH ×2 (12:22→20:54)
[2018-03-26] MEDS: metFORMIN 500 MG TAB PO SCH ×2 (12:26→17:02)
[2018-03-26] MEDS: Aspirin 81 mg Enteric Coated Tablet PO SCH ×2 (12:26→20:54)
[2018-03-26] MEDS: Enoxaparin Sodium 40 MG/0.4 ML SYRINGE SC SCH (12:26)
--- NOTE | 2018-03-26 12:43 | OP ---
DATE OF PROCEDURE: 03/26/2018 OPERATION: Right radius elastic nail fixation. PREOPERATIVE DIAGNOSIS: Right radius metastatic lesion with impending fracture. POSTOPERATIVE DIAGNOSIS: Right radius metastatic lesion with impending fracture. COMPLICATIONS: None. ESTIMATED BLOOD LOSS: Minimal. SURGEON: Tyshawn Mahmood M.D. ANESTHESIA: General. INDICATIONS: Ms. Neff is a 53-year-old female who has metastatic breast cancer. She has bee n found to have a large lesion in the radius with impending fracture and periosteal reaction. She cortez s pain related to this. She was indicated for flexible nail placement to stabilize the fracture and give the radius strength. Risks have been reviewed. She has elected to proceed with the operation. DESCRIPTION OF PROCEDURE: Ms. Neff was identified in the preoperative holding area. Her cor rect extremity was marked. She was carried to the operating room. She was positioned supine. Gener al anesthesia was induced. A multidisciplinary timeout was performed. The right upper extremity was prepped and draped in sterile fashion. We made a small incision over the radial styloid. At this point, a scissors used to dissect down to the bony level protecting neurologic and tendinous structures. We then used a 4.5 mm drill to make a drill hole in the cortical bone. Next, we inserted a 3.5 mm elastic nail from [employer] using appropr iate insertion device. The nail was tapped proximally into the radius, taking x-rays confirming posi tion and alignment. We passed the cortical breech from the tumor. We then seated the last canal pro ximally. We cut the distal aspect of the nail and impacted it into the radius bone. At this point, we took final x-ray images confirming hardware placement and position. There were no complications. We thoroughly irrigated. We then closed with a 2-0 Vicryl suture and followed by Ray li and a sterile dressing was applied. The patient was taken to the recovery room in good conditi on. IMPLANTS: [employer] elastic nail 3.5 mm was used.
[2018-03-26] MEDS ORDERED: Dexamethasone 20 MG/5 ML VIAL ONE ×2 (15:15→15:17)
[2018-03-26] MEDS ORDERED: PROPOFOL 200 MG/20 ML VIAL ONE (15:15)
[2018-03-26] MEDS ORDERED: Glycopyrrolate 0.2 MG/ML 5 ML SYRINGE ONE (15:15)
[2018-03-26] MEDS ORDERED: Lidocaine 1% PF 5 ML VIAL ONE (15:15)
[2018-03-26] MEDS ORDERED: Ondansetron HCl/PF 4 MG/2 ML Vial ONE (15:15)
--- NOTE | 2018-03-26 16:43 | RAD ---
INTRAOPERATIVE IMAGING OF THE RIGHT FOREARM 03/26/18 COMPARISON: 03/24/18 HISTORY: Metastatic lesion within right mid shaft radius. FINDINGS: A metallic bolivar is seen within the right radius traversing the permeative lytic lesion within the mid/ distal shaft of the right radius. IMPRESSION: Intraoperative imaging as above. POS: MATT
[2018-03-26] MEDS: CEFAZOLIN/Water 2 GM/20 ML SYRINGE SLOW IVP SCH (16:51)
--- NOTE | 2018-03-26 19:00 | PDOC.PN ---
- Subjective Encounter Start Date: 03/26/18 Encounter Start Time: 16:30 Subjective: f/u for R femur pathological fx s/p IM nail POD #7. Also R radius -: metastatic lesion s/p elastic nail 03/26/18. No new complaints -: currently. - Objective MAR Reviewed: Yes Vital Signs & Weight: Vital Signs (12 hours) Temp Pulse Resp BP BP Pulse Ox 03/26/18 11:35 98.4 F 100 20 110/71 92 L 03/26/18 08:00 98.0 F 84 18 03/26/18 07:55 98 F 84 18 103/71 97 I&O: 03/25/18 03/26/18 03/27/18 06:59 06:59 06:59 Intake Total 4680 2570 Output Total 1950 1850 Balance 2730 720 Result Diagrams: 03/25/18 03:30 03/24/18 04:00 Additional Labs: Accuchecks 03/26/18 03/26/18 03/25/18 17:06 05:27 21:04 POC Glucose 181 H 91 95 Phys Exam - Physical Examination Constitutional: NAD HEENT: PERRLA, sclera anicteric, oral pharynx no lesions Neck: no nodes, no JVD, supple, full ROM Respiratory: no wheezing, no rales, no rhonchi, clear to auscultation bilateral S1, S2 Cardiovascular: RRR, no significant murmur, no rub, gallop Gastrointestinal: soft, non-tender, no distention, positive bowel sounds R forearm with surgical dressing in place Musculoskeletal: no edema, pulses present Neurological: normal sensation, moves all 4 limbs Psychiatric: normal affect, A&O x 3 Skin: no rash, normal turgor, cap refill <2 seconds Dx/Plan (1) DM2 (diabetes mellitus, type 2) Status: Chronic Qualifiers: Diabetes mellitus usp insulin use: without watermaster use Diabetes mellitus complication status: with unspecified complications Qualified Code(s) : E11.8 - Type 2 diabetes mellitus with unspecified complications Comment: Continue ISS, Metformin 500mg daily, serial accuchecks (2) Right femoral fracture Code(s): S72.91XA - UNSP FRACTURE OF RIGHT FEMUR, INIT FOR CLOS FX Status: Acute Qualifiers: Femur location: distal Fracture type: closed Comment: pathological fracture with h/o metastatic breast cancer, POD #7, pain control, PT/OT (3) Hypotension Status: Chronic Comment: Hold all BP meds, serial monitoring (4) Breast cancer Status: Chronic Comment: Stage IV disease with plans for chemoradio tx after d /c, consider Palliative care/hospice (5) Anemia due to blood loss, acute Code(s): D62 - ACUTE POSTHEMORRHAGIC ANEMIA Status: Acute Comment: Post-op anemia, s/p 2u PRBC's today, serial H/H (6) Bony metastasis Code(s): C79.51 - SECONDARY MALIGNANT NEOPLASM OF BONE Status: Acute Comment : R radius metastasis, s/p elastic nail placement 03/26/18, pain control, plan for chemoxrt on d/c - Plan PT/OT, older adult social work specialist, DVT proph w/SCDs stable overall -: Continue pain control -: CM for SNF/rehab options -: Continue ASA 81mg BID -: Consider Palliative options * PT/OT for mobilization/ambulation
[2018-03-27] MEDS: CEFAZOLIN/Water 2 GM/20 ML SYRINGE SLOW IVP SCH (01:10)
[2018-03-27] MEDS: fentaNYL Citrate/PF 2,000 MCG in Sodium Chloride 0.9% 60 ML IV PRN (03:44)
[2018-03-27] MEDS: FLUoxetine HCl 20 MG CAP PO SCH ×2 (08:29→22:47)
[2018-03-27] MEDS: Dronedarone HCl 400 MG TAB PO SCH ×2 (08:29→18:09)
[2018-03-27] MEDS: metFORMIN 500 MG TAB PO SCH ×2 (08:29→18:09)
[2018-03-27] MEDS: guaiFENesin ER 600 MG TAB PO SCH ×2 (08:29→22:47)
[2018-03-27] MEDS: Aspirin 81 mg Enteric Coated Tablet PO SCH ×2 (08:29→22:47)
[2018-03-27] MEDS: Enoxaparin Sodium 40 MG/0.4 ML SYRINGE SC SCH (08:29)
[2018-03-27] MEDS: Senokot S 8.6-50 MG TAB PO SCH ×2 (08:29→23:27)
[2018-03-27] MEDS: Polyethylene Glycol 3350 17 GM Packet PO SCH (08:29)
[2018-03-27] MEDS ORDERED: Benzonatate 100 MG CAP PO PRN (13:04)
--- NOTE | 2018-03-27 16:50 | PDOC.PN ---
- Subjective Encounter Start Date: 03/27/18 (f/u diabetes) Encounter Start Time: 13:00 Subjective: Pt c/o cough, ongoing for a few months. Dry cough initially that is -: productive of yellow/green mucous. Denies any chest pain or difficulty -: breathing. last BM 2 days ago - on meds at home - Objective Vital Signs & Weight: Vital Signs (12 hours) Temp Pulse Resp BP Pulse Ox 03/27/18 12:45 98.1 F 88 16 108/69 98 03/27/18 08:25 98 F 92 18 151/92 H 92 L 03/27/18 08:15 98 F 92 18 92 L I&O: 03/26/18 03/27/18 03/28/18 06:59 06:59 06:59 Intake Total 2570 1140 1500 Output Total 1850 1200 1700 Balance 720 -60 -200 Result Diagrams: 03/25/18 03:30 03/24/18 04:00 Additional Labs: Accuchecks 03/27/18 03/27/18 03/26/18 10:54 05:51 22:08 POC Glucose 117 H 113 H 147 H 03/26/18 17:06 POC Glucose 181 H Phys Exam - Physical Examination Constitutional: NAD Respiratory: no wheezing, no rales, no rhonchi Cardiovascular: RRR, no significant murmur Gastrointestinal: soft, non-tender, no distention, positive bowel sounds Musculoskeletal: no edema Neurological: non-focal, moves all 4 limbs Psychiatric: normal affect Skin: no rash Dx/Plan (1) Cough Code(s): R05 - COUGH Status: Chronic (2) Anemia Code(s): D64.9 - ANEMIA, UNSPECIFIED Status: Chronic Qualifiers: Anemia type: unspecified type Qualified Code(s): D64.9 - Anemia, unspecified (3) Bony metastasis Code(s): C79.51 - SECONDARY MALIGNANT NEOPLASM OF BONE Status: Chronic Comment: R radius metastasis, s/p elastic nail placement 03/26/18, pain control, plan for chemoxrt on d/c (4) Breast cancer Status: Chronic Comment: Stage IV disease with plans for chemoradio tx after d /c, consider Palliative care/hospice (5) DM2 (diabetes mellitus, type 2) Status: Chronic Qualifiers: Diabetes mellitus fpc insulin use: without terminal press operator use Diabetes mellitus complication status: with unspecified complications Qualified Code(s) : E11.8 - Type 2 diabetes mellitus with unspecified complications Comment: Continue ISS, Metformin 500mg daily, serial accuchecks (6) Paroxysmal atrial fibrillation Code(s): I48.0 - PAROXYSMAL ATRIAL FIBRILLATION Status: Chronic Comment: stable - Plan * cough - schedule nebs to see if this improves sx. Reviewed CT from February and pt with metastatic lung disease - sx may be in conjunction with this. Add tessalon perles and continue mucinex prn * DM - continue metformin and current care * Metastatic bone disease - s/p 2 surgeries with most recent one yesterday right radial. 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 Pt remains at high risk in current condition.
[2018-03-28] MEDS: fentaNYL Citrate/PF 2,000 MCG in Sodium Chloride 0.9% 60 ML IV PRN (00:49)
[2018-03-28 05:39] LABS: #Eosinphils 0.2 thou/uL (0.0-0.7); #Lymphocytes 1.1 thou/uL (1.20-3.40); #Monocytes 0.8 thou/uL (0.11-0.59); %Basophils 0.3 % (0.0-1.0); %Lymphocytes 18.2 % (21.0-51.0); %Monocytes 12.8 % (0.0-10.0); %Neutrophils 65.8 % (42.0-75.0); Hemoglobin 8.7 g/dL (12.0-16.0); Mean Corpuscular HGB CONC 32.7 g/dL (32.0-36.0); Mean Corpuscular Hemoglobin 28.5 pg (27.0-31.0); Mean Corpuscular Volume 87.2 fl (81.0-99.0); Platelet Count 218 thou/uL (130-400); RBC Distribution Width 13.6 % (11.5-14.5); Red Blood Cell (RBC) Count 3.05 mill/uL (4.20-5.40)
[2018-03-28 05:50] LABS: Anion Gap 13 mmol/L (10-20); BUN (Urea Nitrogen) 12 mg/dL (9.8-20.1); Calc. Creatinine Clearance 129 mL/min (70-130); Calcium 8.9 mg/dL (7.8-10.44); Carbon Dioxide 24 mmol/L (22-29); Chloride 105 mmol/L (98-107); Estimated GFR-MDRD Greater than 90; Glucose 77 mg/dL (70-105); Potassium 4.1 mmol/L (3.5-5.1); Sodium 138 mmol/L (136-145)
[2018-03-28] MEDS: FLUoxetine HCl 20 MG CAP PO SCH (08:56)
[2018-03-28] MEDS: Polyethylene Glycol 3350 17 GM Packet PO SCH (08:56)
[2018-03-28] MEDS: Aspirin 81 mg Enteric Coated Tablet PO SCH (08:56)
[2018-03-28] MEDS: guaiFENesin ER 600 MG TAB PO SCH (08:56)
[2018-03-28] MEDS: metFORMIN 500 MG TAB PO SCH (08:57)
[2018-03-28] MEDS: Dronedarone HCl 400 MG TAB PO SCH (08:57)
[2018-03-28] MEDS: Enoxaparin Sodium 40 MG/0.4 ML SYRINGE SC SCH (08:57)
[2018-03-28] MEDS: Senokot S 8.6-50 MG TAB PO SCH (08:57)
[2018-03-28] MEDS ORDERED: traMADol HCl 50 MG TAB PO PRN ×2 (09:55)
[2018-03-28] MEDS ORDERED: HYDROcodone/Acetaminophen 10/325 mg Tablet PO PRN (09:56)
[2018-03-28] MEDS ORDERED: HYDROcodone/Acetaminophen 5/325 mg Tablet PO PRN (09:56)
--- NOTE | 2018-03-28 11:33 | DIS ---
DATE OF ADMISSION: 03/18/2018 DATE OF DISCHARGE: 03/28/2018 DISCHARGE DIAGNOSES: 1. Right pathological femur fracture secondary to metastatic breast cancer, status post intramedulla ry nail placement, 03/19/2018. 2. Right radius metastatic lesion with impending fracture, status post elastic nail fixation, 2017. 3. Diabetes mellitus, type 2. 4. Hypotension, resolving. 5. Stage 4 breast carcinoma with bone and brain involvement. 6. Acute blood loss anemia postoperatively, status post 2 units of packed red blood cells, stable. CONSULTATIONS: Dr. Mahmood with Orthopedic Surgery Service. PERTINENT LABORATORY AND X-RAY FINDINGS: Basic metabolic profile within normal limits. Magnesium 1. 7. CBC showed a white blood cell count ranging between 5.7-9.0, hemoglobin ranged between 7.1-10.9. Four views of the right knee dated 03/18/2018 showed pathologic fracture of the distal right femur. A 6.0 cm lytic lesion in the distal shaft of the right femur. CT of the lumbar and thoracic spine d ated 03/18/2018 showed no significant central canal stenosis or foraminal narrowing. Two views of th e right forearm dated 03/24/2018 showed suspicious lesion of the dorsal cortex of the radius, likely representing metastatic process. HOSPITAL COURSE: The patient was admitted after presenting with acute right lower extremity pain, reardon staining a distal right femur fracture secondary to metastatic breast carcinoma. The patient underwe nt intramedullary nail placement on 03/19/2018 with stabilization of the fracture site. The patient was managed postoperatively and noted with postoperative acute anemia, requiring 2 units of packed re d blood cells. Hemoglobin remained stable throughout the remainder of the hospital course. 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 The patient was also evaluated for persistent right forearm pa in with radiographic evaluation showing metastatic process. The patient underwent elastic nail fixat ion on 03/26/2018 without complication. Due to patient's multiple fractures, metastatic breast carci noma, and impaired mobilization, the patient was deemed [facility]. [facility] to [facility] aft er discharge. At the time of discharge, I have examined the patient and discussed pertinent radiogra [facility] findings as well as followup instructions. The patient verbalizes understanding and agreement a nd ready for discharge on 03/28/2018. DISCHARGE MEDICATIONS: 1. Enteric-coated aspirin 81 mg 1 tab p.o. b.i.d. 2. Flexeril 10 mg p.o. t.i.d. p.r.n. 3. Multaq 400 mg p.o. b.i.d. 4. Lovenox 40 mg subcutaneously daily. 5. Fentanyl patch 25 mcg transdermally q.72 hours. 6. Prozac 20 mg p.o. b.i.d. 7. Jacobson 10/325 mg 2 tabs p.o. q.i.d. p.r.n. pain. 8. Ibuprofen 400 mg p.o. every 6 hours p.r.n. 9. Lisinopril/hydrochlorothiazide 20/25 mg 1 tab p.o. daily. 10. Metformin 500 mg p.o. b.i.d. 11. MiraLax 17 grams p.o. daily. 12. Senokot S 8.6/50 mg 1 tab p.o. b.i.d. 13. Tramadol 50 mg 1-2 tabs p.o. q.6 hours p.r.n. pain. FOLLOWUP: Patient will follow up with her primary care provider, Camille Staples, after discharge fro [facility]. The patient will follow up with Dr. Tyshawn Mahmood, [facility] Surgery service, and to call his office for appointment time and date. CONDITION ON DISCHARGE: Stable. ACTIVITY: Ad isela. Rolling walker with standby assistance. DIET: ADA. CODE STATUS: FULL. DISPOSITION: Discharged to [facility], 03/28/2018. Total time preparing and coordinating discharge, 37 minutes.
[2018-03-28 12:13] VITALS: BP 122/75; TEMP 97.9
== END 2018-03-28 14:30 | DRG 481 ==
LOC: ERS 10:02 → SURG B 12:34
PROVIDERS: ADMIT Orthopaedic Surgery; ATTEND Orthopaedic Surgery
PROC: 0QHB36Z Insertion of Intramedullary Internal Fixation Device into Right Lower Femur, Percutaneous Approach (ICD-10-PCS; principal; 2018-03-19)
PROC: 30233N1 Transfusion of Nonautologous Red Blood Cells into Peripheral Vein, Percutaneous Approach (ICD-10-PCS; 2018-03-24)
PROC: 0PHH34Z Insertion of Internal Fixation Device into Right Radius, Percutaneous Approach (ICD-10-PCS; 2018-03-26)
DX: M84.551A Pathological fracture in neoplastic disease, right femur, initial encounter for fracture (principal); C79.51 Secondary malignant neoplasm of bone; C79.31 Secondary malignant neoplasm of brain; C78.01 Secondary malignant neoplasm of right lung; D62 Acute posthemorrhagic anemia; G89.3 Neoplasm related pain (acute) (chronic); I10 Essential (primary) hypertension; E11.9 Type 2 diabetes mellitus without complications; I48.0 Paroxysmal atrial fibrillation; G40.909 Epilepsy, unspecified, not intractable, without status epilepticus; F41.8 Other specified anxiety disorders; E66.9 Obesity, unspecified; K59.00 Constipation, unspecified; I95.9 Hypotension, unspecified; Z68.34 Body mass index [BMI] 34.0-34.9, adult; Z85.3 Personal history of malignant neoplasm of breast; Z92.3 Personal history of irradiation; Z92.21 Personal history of antineoplastic chemotherapy; Z90.49 Acquired absence of other specified parts of digestive tract; Z79.899 Other long term (current) drug therapy; Z79.84 Long term (current) use of oral hypoglycemic drugs; Z95.828 Presence of other vascular implants and grafts; Z90.11 Acquired absence of right breast and nipple; Z87.448 Personal history of other diseases of urinary system; Z87.19 Personal history of other diseases of the digestive system; Z82.49 Family history of ischemic heart disease and other diseases of the circulatory system; Z83.3 Family history of diabetes mellitus; Z80.9 Family history of malignant neoplasm, unspecified; Z91.041 Radiographic dye allergy status
CPT/HCPCS: 36415; 36416; 36430; 72128; 72131; 72170; 76001; 80048; 80053; 83735; 85007; 85025; 85027; 86850; 86900; 86901; 93005; 93010; 94640; 96372; 96374; C1713; C1769; G8978-GP-CM; G8979-GP-CJ; G8979-GP-CK; G8987-GO-CK; G8988-GO-CI; J1100; J1200; J1642; J1650; J1885; J1940; J2001; J2270; J2405; J2704; J3010; J7050; J7620; P9016; Q0162

== ENCOUNTER 2018-04-20 10:56 | Outpatient (CLI) | payer MEDICARE, MEDICAID ==
--- NOTE | 2018-04-21 11:39 | PFT ---
PATIENT HISTORY: HEIGHT: WEIGHT: SMOKER: HOW LONG: PACKS PER DAY PRODUCTIVE COUGH: LUNG DISEASE: PHYSICIAN INTERPRETATION FINAL REPORT There is moderate reduction in expiratory flows and vital capacity total lung capacity is low. RV/TLC is increased. Gas transfer is severely reduced. Patient had difficulty doing the flow volume because of cough. IMPRESSION: 1. Restrictive pulmonary impairment. 2. Severely reduced diffusing capacity. Police Captain Precinct: BECCA Diesel Technician: BECCA SALINAS
== END 2018-04-20 10:57 | disposition home or self-care (01) ==
LOC: CP 10:56
PROVIDERS: ATTEND Internal Medicine
DX: R05 Cough (principal); R06.00 Dyspnea, unspecified; K21.9 Gastro-esophageal reflux disease without esophagitis
CPT/HCPCS: 94010; 94727

== ENCOUNTER 2018-04-20 11:06 | Outpatient (CLI) | payer MEDICARE, MEDICAID ==
[2018-04-20] MEDS ORDERED: Gadobenate Dimeglumine 529 MG/1 ML (20ML VIAL) ONE (13:21)
--- NOTE | 2018-04-20 15:21 | MRI ---
PRE AND POST CONTRAST ENHANCED MRI IMAGES OF THE BRAIN: History: Patient with breast cancer, brain metastases. Status post radiation. C79.31 Technique: Multiplanar, multisequence pre and post contrast enhanced MRI images were obtained of the brain. Comparison: 01-20-18 FINDINGS: Images demonstrate an area of gliosis with encephalomalacic changes in the right medial parietal radha on. This area of previously noted enhancement compatible with a large intracranial metastatic lesion has significantly decreased in size. Previously it measures 2.4 x 3.2 cm, now having significantly de creased in size measuring 1.2 x 1.5 cm. The superior frontal gyral tiny area of enhancement previousl y measuring 4.4 mm has nearly completely resolved, barely perceptible measuring 1-2 mm in the right f rontal lobe lesion. The third lesion in the posterior aspect of the right temporal lobe is also decreased in size. Previo usly, maximum diameter was approximately 1.3 cm, now having decreased to approximately 5 mm. The rest of the brain is unremarkable without evidence of masses or lesions. No significant midline s hift is seen. IMPRESSION: Significant reduction in volume of all three right hemispheric lesions. POS: [facility]
== END 2018-04-20 11:07 | disposition home or self-care (01) ==
LOC: MRI 11:06
PROVIDERS: ATTEND Radiology Radiation Oncology
DX: C79.31 Secondary malignant neoplasm of brain (principal); C80.1 Malignant (primary) neoplasm, unspecified
CPT/HCPCS: 70553; A9579

== ENCOUNTER 2018-05-02 14:05 | Day surgery (SDC) | payer MEDICARE, MEDICAID ==
[2018-05-02] MEDS ORDERED: Zoledronic Acid 4 MG in Sodium Chloride 0.9% 100 ML IVPB SCH (14:15)
[2018-05-02 14:22] VITALS: BP 100/59; TEMP 98.8
[2018-05-02] MEDS ORDERED: Sodium Chloride 0.9% 20 ML ONE (14:25)
== END 2018-05-02 15:08 | disposition home or self-care (01) ==
LOC: ONC/OP 14:05
PROVIDERS: ATTEND Internal Medicine Hematology & Oncology
DX: Z51.11 Encounter for antineoplastic chemotherapy (principal); C78.39 Secondary malignant neoplasm of other respiratory organs; I10 Essential (primary) hypertension; E03.9 Hypothyroidism, unspecified; M19.90 Unspecified osteoarthritis, unspecified site; E11.9 Type 2 diabetes mellitus without complications; Z85.3 Personal history of malignant neoplasm of breast; Z79.84 Long term (current) use of oral hypoglycemic drugs; Z79.899 Other long term (current) drug therapy; Z91.041 Radiographic dye allergy status
CPT/HCPCS: 36415; 77412; 80053; 82248; 83615; 84100; 84550; 86300; 96365; 96401; A4216; J1642; J3489; J7050; J9395

== ENCOUNTER 2018-05-18 08:31 | Day surgery (SDC) | payer MEDICARE, MEDICAID ==
[2018-05-18 09:01] VITALS: BP 103/58; TEMP 98.6
== END 2018-05-18 09:04 | disposition home or self-care (01) ==
LOC: ONC/OP 08:31
PROVIDERS: ATTEND Internal Medicine Hematology & Oncology
DX: Z51.11 Encounter for antineoplastic chemotherapy (principal); C50.311 Malignant neoplasm of lower-inner quadrant of right female breast; C78.39 Secondary malignant neoplasm of other respiratory organs
CPT/HCPCS: 96402; J9395

== ENCOUNTER 2018-05-30 12:04 | Day surgery (SDC) | payer MEDICARE, MEDICAID ==
[2018-05-30 12:55] VITALS: BP 138/45; TEMP 99
== END 2018-05-30 14:09 | disposition home or self-care (01) ==
LOC: ONC/OP 12:04
PROVIDERS: ATTEND Internal Medicine Hematology & Oncology
DX: C78.39 Secondary malignant neoplasm of other respiratory organs (principal); C79.51 Secondary malignant neoplasm of bone; C78.00 Secondary malignant neoplasm of unspecified lung; F31.9 Bipolar disorder, unspecified; I10 Essential (primary) hypertension; M19.90 Unspecified osteoarthritis, unspecified site; E03.9 Hypothyroidism, unspecified; E11.9 Type 2 diabetes mellitus without complications; Z85.3 Personal history of malignant neoplasm of breast; Z79.84 Long term (current) use of oral hypoglycemic drugs; Z79.899 Other long term (current) drug therapy; Z91.041 Radiographic dye allergy status; Z90.11 Acquired absence of right breast and nipple
CPT/HCPCS: 96402; J9395

== ENCOUNTER 2018-06-17 14:26 | Emergency (ER) | payer MEDICARE, MEDICAID ==
--- NOTE | 2018-06-17 15:29 | RAD ---
RIGHT FOOT 3 VIEWS: Date: 06/17/18 HISTORY: Pain. COMPARISON: Radiograph 03/22/18. FINDINGS: There is no acute fracture or malalignment. Soft tissues are mildly edematous. Mild demineralization. Moderate size plantar and dorsal calcaneal spurs. IMPRESSION: No acute abnormality. Unchanged exam. POS: [facility]
== END 2018-06-17 16:10 | disposition home or self-care (01) ==
LOC: ERS 14:26
DX: M79.671 Pain in right foot (principal); E11.9 Type 2 diabetes mellitus without complications; I10 Essential (primary) hypertension; F41.9 Anxiety disorder, unspecified

== ENCOUNTER 2018-07-11 09:51 | Day surgery (SDC) | payer MEDICARE, MEDICAID ==
[2018-07-11] MEDS ORDERED: Zoledronic Acid 4 MG in Sodium Chloride 0.9% 100 ML IVPB SCH (10:15)
[2018-07-11] MEDS ORDERED: Sodium Chloride 0.9% 20 ML ONE (10:31)
[2018-07-11 12:15] VITALS: BP 107/55; TEMP 98
== END 2018-07-11 12:22 | disposition home or self-care (01) ==
LOC: ONC/OP 09:51
PROVIDERS: ATTEND Internal Medicine Hematology & Oncology
DX: Z51.11 Encounter for antineoplastic chemotherapy (principal); C78.39 Secondary malignant neoplasm of other respiratory organs; C79.51 Secondary malignant neoplasm of bone; I10 Essential (primary) hypertension; F31.9 Bipolar disorder, unspecified; F41.9 Anxiety disorder, unspecified; M19.90 Unspecified osteoarthritis, unspecified site; E11.9 Type 2 diabetes mellitus without complications; E03.9 Hypothyroidism, unspecified; Z85.3 Personal history of malignant neoplasm of breast; Z79.84 Long term (current) use of oral hypoglycemic drugs; Z79.899 Other long term (current) drug therapy; Z91.041 Radiographic dye allergy status
CPT/HCPCS: 96365; 96401; A4216; J1642; J3489; J7050; J9395

== ENCOUNTER 2018-07-11 16:05 | Emergency (ER) | payer MEDICARE, MEDICAID ==
[2018-07-11] MEDS ORDERED: Morphine 4 MG/ML VIAL ONE (17:14)
[2018-07-11] MEDS ORDERED: Promethazine HCl 25 MG/ML VIAL ONE ×2 (17:15→17:17)
[2018-07-11 17:27] LABS: #Lymphocytes 0.9 thou/uL (1.20-3.40); #Monocytes 0.4 thou/uL (0.11-0.59); #Neutrophils 1.9 thou/uL (1.40-6.50); %Basophils 1.4 % (0.0-1.0); %Eosinophils 0.9 % (0.0-10.0); %Lymphocytes 27.8 % (21.0-51.0); %Monocytes 10.7 % (0.0-10.0); %Neutrophils 59.2 % (42.0-75.0); Hemoglobin 9.4 g/dL (12.0-16.0); Mean Corpuscular HGB CONC 32.7 g/dL (32.0-36.0); Mean Corpuscular Hemoglobin 29.4 pg (27.0-31.0); Mean Corpuscular Volume 89.7 fL (78.0-98.0); Mean Platelet Volume 8.5 fL (7.4-10.4); Platelet Count 127 thou/uL (130-400); RBC Distribution Width 17.8 % (11.5-14.5); White Blood Cell (WBC) Count 3.3 thou/uL (4.8-10.8)
[2018-07-11 17:53] LABS: ALT (SGPT) 7 U/L (8-55); AST (SGOT) 11 U/L (5-34); Albumin 3.8 g/dL (3.5-5.0); Alkaline Phosphatase 89 U/L (40-150); Anion Gap 13 mmol/L (10-20); BUN (Urea Nitrogen) 16 mg/dL (9.8-20.1); Bilirubin, Total 0.3 mg/dL (0.2-1.2); Calc. Creatinine Clearance 0 mL/min (70-130); Calcium 9.4 mg/dL (7.8-10.44); Carbon Dioxide 24 mmol/L (22-29); Chloride 101 mmol/L (98-107); Estimated GFR-MDRD 50; Glucose 122 mg/dL (70-105); Potassium 3.7 mmol/L (3.5-5.1); Protein, Total 7.8 g/dL (6.0-8.3); Sodium 134 mmol/L (136-145)
--- NOTE | 2018-07-11 18:44 | CT ---
CT ABDOMEN WITHOUT CONTRAST: CT PELVIS WITHOUT CONTRAST: HISTORY: The patient gets chemotherapy. The patient had an injection this morning and is now having back pain . COMPARISON: 03/10/2018 TECHNIQUE: An abdomen and pelvis CT is performed without contrast. Coronal reformatted images are submitted for interpretation. FINDINGS: ABDOMEN: Persistent consolidation in the right lower lobe. Findings may be due to a chronic process . Underlying infection, inflammation, or metastases/malignancy cannot be completely excluded. Heart size is normal. No significant pericardial fluid. The visualized aorta has a normal caliber. No periaortic fat stranding. Surgically absent gallbladder. Limited evaluation of the solid organs due to lack of IV contrast. Grossly, the liver, spleen, pancr eas, and right adrenal gland are unremarkable. Persistent mass involving the left adrenal gland, cur rently measuring 1.7 x 1.5 cm (previously measuring 3.6 x 1.6 cm). Bilaterally, no obstructive uropathy. No mesenteric free air or free fluid. There are a few scattered nonspecific mesenteric lymph nodes. There is a focal hypodensity involving the right lower quadrant mesentery, measuring 0.7 x 0.5 cm. A focal area of possible mesenteric necrosis/fat stranding is suspected. Limited evaluation of the alimentary canal by lack of oral contrast. No evidence of bowel obstructio n. The ileocecal junction is normal. Normal caliber appendix. Scattered fecal material in a nondis tended, nondilated colon. Occasional diverticulum. No diverticulitis. There do appear to be enlarged gastrohepatic lymph nodes, incompletely evaluated. 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 PELVIS: No mass, lymphadenopathy, free air, or free fluid. The urinary bladder is unremarkable. No lytic or blastic lesions in the osseous structures. Intramedullary bolivar in the right femur is note d. There are old left rib fractures. IMPRESSION: 1. Persistent consolidation of the right lung, which may represent post treatment change or chronic change. Underlying neoplasm or pneumonia cannot be excluded. 2. Persistent mass involving the left adrenal gland, incompletely evaluated. 3. Enlarged gastrohepatic lymph nodes. 4. No lytic or blastic lesions in the osseous structures. No high grade central canal stenosis. POS: [facility]
[2018-07-11 18:55] LABS: Bilirubin Negative (Negative); Blood, Urine Negative (Negative); Clarity CLEAR (Clear); Glucose, Urine (Dipstick) Negative (Negative); Leukocyte Negative (Negative); Nitrite Negative (Negative); Protein, Urine (Dipstick) Negative (Neg-Trace); Specific Gravity, Urine 1.015 (1.002-1.036)
== END 2018-07-11 19:40 | disposition home or self-care (01) ==
LOC: ERS 16:05
DX: M54.5 Low back pain (principal); E11.9 Type 2 diabetes mellitus without complications; I10 Essential (primary) hypertension; F41.9 Anxiety disorder, unspecified; Z79.84 Long term (current) use of oral hypoglycemic drugs; Z79.899 Other long term (current) drug therapy
CPT/HCPCS: 74176; 80053 ×2; 81003; 82248; 83615; 84100; 84550; 85025; 86300; 96365; 96401; J3489; J9395; 36415; 96372; A4216; J1642; J2270; J2550; J7050

== ENCOUNTER 2018-07-12 12:06 | Emergency (ER) | payer MEDICARE, MEDICAID ==
--- NOTE | 2018-07-12 14:07 | RAD ---
RIGHT FOREARM 2 VIEWS: HISTORY: Status post fall today. Pain. FINDINGS: There is an uncomplicated internal fixation bolivar. Fracture lucency is still suggested. There appear to be some erosive changes of the diaphysis. Findings are similar to previous fluoroscopy. A healin g fracture is suspected. An acute fracture is not appreciated. IMPRESSION: Healing fracture. No definite acute fracture. POS: [facility]
--- NOTE | 2018-07-12 14:53 | RAD ---
RIGHT KNEE 4 VIEWS: HISTORY: Right knee injury. COMPARISON: 03/18/2018. FINDINGS: Medullary bolivar of the femur is partially visualized, transfixing the distal femoral shaft fracture, wh ere healing has taken place. No perihardware lucency about the knee. No acute fracture, dislocation , or fluid distention of the suprapatellar bursa. IMPRESSION: Internal fixation of the femur partially visualized. No acute osseous abnormalities of the knee are demonstrated. POS: [facility]
== END 2018-07-12 14:20 | disposition home or self-care (01) ==
LOC: ERS 12:06
DX: S63.501A Unspecified sprain of right wrist, initial encounter (principal); S80.211A Abrasion, right knee, initial encounter; S50.811A Abrasion of right forearm, initial encounter; E11.9 Type 2 diabetes mellitus without complications; I10 Essential (primary) hypertension; F41.9 Anxiety disorder, unspecified; Z79.899 Other long term (current) drug therapy; Z79.84 Long term (current) use of oral hypoglycemic drugs; W01.0XXA Fall on same level from slipping, tripping and stumbling without subsequent striking against object, initial encounter
CPT/HCPCS: 29125

== ENCOUNTER 2018-08-18 11:19 | Day surgery (SDC) | payer MEDICARE, MEDICAID ==
[2018-08-18 12:03] VITALS: BP 117/63; TEMP 98.5
== END 2018-08-18 12:22 | disposition home or self-care (01) ==
LOC: ONC/OP 11:19
PROVIDERS: ATTEND Internal Medicine Hematology & Oncology
DX: Z51.11 Encounter for antineoplastic chemotherapy (principal); C78.39 Secondary malignant neoplasm of other respiratory organs; Z88.8 Allergy status to other drugs, medicaments and biological substances; Z85.3 Personal history of malignant neoplasm of breast
CPT/HCPCS: 36415; 80053; 82248; 83615; 84100; 84550; 86300; 96402; J9395

== ENCOUNTER 2018-09-09 10:14 | Outpatient (CLI) | payer MEDICARE, MEDICAID ==
--- NOTE | 2018-09-09 14:43 | CT ---
CT THORAX WITH CONTRAST CT ABDOMEN WITH CONTRAST CT PELVIS WITH CONTRAST: DATE: 09/09/18 HISTORY: 53-year-old female with right breast cancer and metastatic disease. Restaging CT. COMPARISON: 03/10/18 CT of thorax, abdomen, and pelvis. TECHNIQUE: IV iodinated contrast media: 75 mL [id number]. Oral contrast media: Administered. Single phase scans of thorax, abdomen, and pelvis. FINDINGS: Right breast implant. Right subclavian implantable vascular access port. The moderate size region of consolidation with volume loss is again noted involving a significant portion of the right upper lobe and superior segment of right lower lobe, with air bronchograms. There is greater extent of the ante rior component of this consolidation involving the anterior segment of the right upper lobe now sandra red to previous. Decreased volume in the right lung results in cardiomediastinal shift to the right, especially the trachea, and elevation of the right hemidiaphragm, unchanged. No new consolidation. Th e previously demonstrated fractures of the posterolateral aspects of the left 6th, 7th, 8th, 9th, and 10th ribs demonstrate late callus, but no union. No pneumothorax or pleural effusion. No mediastinal lymphadenopathy. No left-sided hilar lymphadenopathy. No axillary lymphadenopathy. The previously demonstrated 0.6 cm pulmonary nodule in the superior segment of the left lower lobe, h as become much smaller, and is currently fairly inconspicuous, measuring 0.4 x 0.4 x 0.3 cm (coronal image 37 of 50, series 5; axial image 27 of 49, series 3). No new pulmonary nodules are visualized. The left adrenal mass has also decreased in size. It was 3.6 x 1.6 x 2.6 cm. It is now approximately 2.3 x 1.2 x 1.9 cm. No contralateral right adrenal nodule. No hepatic metastasis. Bilaterally normal kidneys, abdominal a tomas, pancreas, appendix, and urinary bladder. No small bowel dilation. No ascites. No colonic divert iculitis. The left upper paraaortic retroperitoneal mildly enlarged lymph node, previously measuring 0.9 x 1.2 x 1.9 cm, currently measures 0.7 x 1.2 x 1.5 cm, minimally smaller. No new enlarged lymph nodes in th e retroperitoneum, katy hepatis, mesentery, or iliac chains. No destructive osseous lesion identified. Intramedullary nail in right femur. Uterus is surgically absent. IMPRESSION: 1. Partial response to chemotherapy: interval decrease in size of solitary left lower lobe pulmonar y nodule, now tiny. 2. Partial response to chemotherapy: interval decrease in size of left adrenal metastasis. 3. Probable minimal decrease in size of left paraaortic retroperitoneal mildly enlarged lymph node. 4. Chronic consolidation of portion of right lung associated with chronic volume loss. The anterior extent of this has mildly increased. 5. Status post right mastectomy, cholecystectomy, and hysterectomy. 6. 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 LYNDON Reeves POS: [facility]
[2018-09-09] MEDS ORDERED: ISOVUE-370 76%-LOCM 1 ML ONE (16:17)
== END 2018-09-09 10:15 | disposition home or self-care (01) ==
LOC: BICCT 10:14
PROVIDERS: ATTEND Internal Medicine Hematology & Oncology
DX: C50.919 Malignant neoplasm of unspecified site of unspecified female breast (principal); C78.39 Secondary malignant neoplasm of other respiratory organs; S22.42XK Multiple fractures of ribs, left side, subsequent encounter for fracture with nonunion; R91.1 Solitary pulmonary nodule; C79.72 Secondary malignant neoplasm of left adrenal gland; R59.0 Localized enlarged lymph nodes; Z90.49 Acquired absence of other specified parts of digestive tract; Z90.11 Acquired absence of right breast and nipple; Z90.710 Acquired absence of both cervix and uterus
CPT/HCPCS: 71260; 74177

== ENCOUNTER 2018-09-23 08:56 | Day surgery (SDC) | payer MEDICARE, MEDICAID ==
[2018-09-23 09:10] VITALS: BP 122/70; TEMP 98
== END 2018-09-23 10:48 | disposition home or self-care (01) ==
LOC: ONC/OP 08:56
PROVIDERS: ATTEND Internal Medicine Hematology & Oncology
DX: Z51.11 Encounter for antineoplastic chemotherapy (principal); C78.39 Secondary malignant neoplasm of other respiratory organs; F31.9 Bipolar disorder, unspecified; I10 Essential (primary) hypertension; M19.90 Unspecified osteoarthritis, unspecified site; E03.9 Hypothyroidism, unspecified; E11.9 Type 2 diabetes mellitus without complications; Z85.3 Personal history of malignant neoplasm of breast; Z79.899 Other long term (current) drug therapy; Z91.041 Radiographic dye allergy status
CPT/HCPCS: 96402; J9395

== ENCOUNTER 2018-10-18 11:25 | Day surgery (SDC) | payer MEDICARE, MEDICAID ==
[2018-10-18] MEDS ORDERED: Zoledronic Acid 4 MG in Sodium Chloride 0.9% 100 ML IVPB SCH (12:00)
[2018-10-18 12:08] VITALS: BP 139/78; TEMP 97.6
[2018-10-18] MEDS ORDERED: Sodium Chloride 0.9% 20 ML ONE (15:31)
== END 2018-10-18 15:42 | disposition home or self-care (01) ==
LOC: ONC/OP 11:25
PROVIDERS: ATTEND Internal Medicine Hematology & Oncology
DX: Z51.11 Encounter for antineoplastic chemotherapy (principal); C78.39 Secondary malignant neoplasm of other respiratory organs; E03.9 Hypothyroidism, unspecified; E11.9 Type 2 diabetes mellitus without complications; I10 Essential (primary) hypertension; Z79.899 Other long term (current) drug therapy; Z79.84 Long term (current) use of oral hypoglycemic drugs; Z85.3 Personal history of malignant neoplasm of breast
CPT/HCPCS: 36415; 80053; 82248; 83615; 84100; 84550; 86300; 96365; 96402; J1642; J3489; J7050; J9395

== ENCOUNTER 2018-11-18 10:32 | Day surgery (SDC) | payer MEDICARE, MEDICAID ==
[2018-11-18] MEDS ORDERED: Sodium Chloride 0.9% 30 ML ONE (10:38)
[2018-11-18 11:48] LABS: Band 1 % (5-11); Eosinophils 5 % (0-10); Hypochromia SLIGHT = 6-15 cells (100X) (0-5/hpf); Lymphocytes 34 % (21-51); MDiff Complete? YES; Mean Corpuscular HGB CONC 32.9 g/dL (32.0-36.0); Mean Corpuscular Hemoglobin 31.2 pg (27.0-31.0); Mean Corpuscular Volume 94.9 fL (78.0-98.0); Mean Platelet Volume 10.3 fL (7.4-10.4); Monocytes 6 % (0-10); Neutrophil 52 % (42-75); Platelet Count 98 thou/uL (130-400); Platelet Morphology Comment Appears Decreased; Polychromasia SLIGHT = 2-3 cells (100X) (0-2/hpf); RBC Distribution Width 13.1 % (11.5-14.5); Reactive Lymphocytes 1 % (0-10); Red Blood Cell (RBC) Count 3.21 mill/uL (4.20-5.40); White Blood Cell (WBC) Count 3.8 thou/uL (4.8-10.8)
== END 2018-11-18 13:42 | disposition home or self-care (01) ==
LOC: ONC/OP 10:32
PROVIDERS: ATTEND Internal Medicine Hematology & Oncology
DX: Z51.11 Encounter for antineoplastic chemotherapy (principal); C78.39 Secondary malignant neoplasm of other respiratory organs; F31.9 Bipolar disorder, unspecified; M19.90 Unspecified osteoarthritis, unspecified site; E03.9 Hypothyroidism, unspecified; E11.9 Type 2 diabetes mellitus without complications; I10 Essential (primary) hypertension; Z85.3 Personal history of malignant neoplasm of breast; Z79.899 Other long term (current) drug therapy; Z79.84 Long term (current) use of oral hypoglycemic drugs; Z91.041 Radiographic dye allergy status
CPT/HCPCS: 36591; 85025; 86300; 96402; J1642; J9395

== ENCOUNTER 2018-12-14 23:33 | Emergency (ER) | payer MEDICARE, MEDICAID ==
[2018-12-15] MEDS ORDERED: HYDROcodone/Acetaminophen 5/325 mg Tablet ONE ×2 (00:12→02:50)
[2018-12-15] MEDS ORDERED: HYDROcodone/Acetaminophen 10/325 mg Tablet ONE (05:35)
--- NOTE | 2018-12-15 07:42 | RAD ---
PA RADIOGRAPH OF CHEST 2 VIEWS RIGHT RIBS: Date: 12/15/18 HISTORY: Chest pain, status post mechanical fall in shower, with right-sided pain. FINDINGS/IMPRESSION: PA radiograph of chest, as well as AP and oblique views of right ribs obtained. PA radiograph of chest demonstrates volume loss in the right hemithorax compatible with previous lobe ctomy. Areas of spiculated density seen in the right lung compatible with possible previous malignanc y. A MediPort catheter is in place. Old, healed right rib fractures are seen. No evidence of acute right rib fractures seen. POS: [facility]
--- NOTE | 2018-12-15 07:58 | CT ---
PRELIMINARY REPORT/[facility]/EMERGENTY AFTER-HOURS PROCEDURE Addendum created by Christina Arroyo MD on 12/15/2018 1:47 AM Central Time ([place] & [place]) Patient has a known intracranial lesion. THIS REPORT CONTAINS FINDINGS THAT MAY BE CRITICAL TO PATIENT CARE. The findings were verbally commun icated via telephone conference with KATIE SANDY at 1:45 AM RELEASE OF INFORMATION CLERK on 12/15/2018. The findings were a cknowledged and understood. Initial Report created on 12/15/2018 1:27 AM Central Time ([place] & [place]) CT Head Without Contrast EXAM DATE/TIME: 12/15/2018 12:23 AM CLINICAL HISTORY: 53 years old, female; Injury or trauma; Fall; Initial encounter; Blunt trauma (contusions or hematoma s); Patient HX: F53 with HX of bone CA presents to ed via ems with C/O r sided head pain, neck pain, and back pain S/P mechanical fall in shower this pm. PT denies loc and reports pain to r side of head. PT is a&ox4 and at baseline per family. TECHNIQUE: Axial computed tomography images of the head/brain without contrast. COMPARISON: No relevant prior studies available. FINDINGS: Brain: Diffuse white matter edema in the right parietal lobe. Trace cortical hyperdensity along the r ight posterior parietal convexity. Ventricles: Mass effect on the right posterior lateral ventricle from adjacent edema. Bones/joints: Unremarkable. No acute fracture. Sinuses: Visualized sinuses are unremarkable. No acute sinusitis. Mastoid air cells: Visualized mastoid air cells are unremarkable. No mastoid effusion. Soft tissues: Unremarkable. IMPRESSION: 1. Diffuse white matter edema in the right parietal lobe. An MRI is recommended to assess for intracr anial lesion if not already known. 2. Trace hyperdensity along the posterior parietal convexity concerning for subarachnoid hemorrhage. Thank you for allowing us to participate in the care of your patient. Dictated and Authenticated by: Christina Arroyo MD 12/15/2018 1:27 AM Central Time ([place] & [place]) FINAL REPORT CT BRAIN: HISTORY: Fall. FINDINGS: Noncontrast enhanced CT images of the brain are obtained on 12/15/2018. Comparison is made to a previo us CT brain from 03/19/2016. CT images of the brain demonstrate an area of decreased density in the subcortical white matter of th e right parietal and occipital regions. This may represent metastatic disease and/or primary brain n eoplasm. I do recommend correlation with pre- and [id number] MRI images of brain to furt her characterize. No evidence of acute intracranial masses, hemorrhages, or strokes seen. IMPRESSION: Right parietal and parietooccipital areas of abnormal white matter density. Further workup using MRI recommended. Metastatic disease or primary brain neoplasm cannot be excluded. POS: [facility]
--- NOTE | 2018-12-15 08:34 | CT ---
PRELIMINARY REPORT/[facility]/EMERGENTY AFTER-HOURS PROCEDURE CT Head Without Contrast EXAM DATE/TIME: 12/15/2018 4:38 AM CLINICAL HISTORY: 53 years old, female; Abnormal findings; Abnormal radiologic findings of head/skull; Not specified; P atient HX: 4 hr follow up per [facility]. R/O mets vs. Bleed. F53 with HX of bone CA presents to ed via ems with C/O r sided head pain, neck pain, and back pain S/P mechanical fall in shower this pm. PT denies loc and reports pain to r side of head. PT is a&ox4 and at baseline per family TECHNIQUE: Axial computed tomography images of the head/brain without contrast. COMPARISON: CT Brain WO Con 12/15/2018 12:23 AM FINDINGS: Brain: Once again there is diffuse white matter edema in the right parietal lobe consistent with mariajose ent's known lesion. The previously seen trace cortical hyperdensity posteriorly concerning for subara chnoid hemorrhage is no longer visualized. Ventricles: Mass effect on the right posterior-lateral ventricle from adjacent edema. Bones/joints: Unremarkable. No acute fracture. Sinuses: Visualized sinuses are unremarkable. No acute sinusitis. Mastoid air cells: Visualized mastoid air cells are unremarkable. No mastoid effusion. Soft tissues: Unremarkable. IMPRESSION: 1. Prior area of concern for trace subarachnoid hemorrhage is no longer visualized. No evidence of he morrhage. 2. Stable diffuse edema in the right parietal lobe. Thank you for allowing us to participate in the care of your patient. Dictated and Authenticated by: Christina Arroyo MD 12/15/2018 5:21 AM Central Time ([place] & [place]) FINAL REPORT EMERGENCY AFTER HOURS CT BRAIN: Date: 12/15/18 FINDINGS/IMPRESSION: I agree with the preliminary report provided by [facility]. Prominent area of vasogenic edema involving the right frontal and parietal lobes is stable. No acute intracranial hemorrhage, infarct, or hydrocepha juan manuel is present. No midline shift is evident. Mastoid air cells and paranasal sinuses are clear. POS: [facility]
--- NOTE | 2018-12-15 08:36 | CT ---
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 PT denies loc and reports pain to r side of head. PT is a&ox4 and at baseline per family. TECHNIQUE: Axial computed tomography images of the cervical spine without intravenous contrast. COMPARISON: No relevant prior studies available. FINDINGS: Vertebrae: No acute fracture. Normal alignment. Discs/Spinal canal/Neural foramina: No spinal stenosis. No neural foraminal narrowing. Soft tissues: Unremarkable. Lungs: Lung apices are normal. IMPRESSION: No acute findings. Thank you for allowing us to participate in the care of your patient. Dictated and Authenticated by: Christina Arroyo MD 12/15/2018 1:31 AM Central Time ([place] & [place]) FINAL REPORT CT CERVICAL SPINE: Date: 12/14/18 HISTORY: Trauma. History of cancer. Fall with neck pain. FINDINGS: Noncontrast enhanced CT images of cervical spine obtained. Sagittal and coronal reconstructed images performed. I concur with the dictation from [facility]. No evidence of acute cervical spine fractures, reardon bluxations, or bony lesions seen. IMPRESSION: No evidence of acute cervical spine pathology. POS: [facility]
== END 2018-12-15 05:54 | disposition home or self-care (01) ==
LOC: ERS 23:33
DX: S00.03XA Contusion of scalp, initial encounter (principal); E11.9 Type 2 diabetes mellitus without complications; I10 Essential (primary) hypertension; F41.9 Anxiety disorder, unspecified; Z79.84 Long term (current) use of oral hypoglycemic drugs; Z79.899 Other long term (current) drug therapy; W18.2XXA Fall in (into) shower or empty bathtub, initial encounter
CPT/HCPCS: 70450; 72125; 93005

== ENCOUNTER 2018-12-24 12:30 | Emergency (ER) | payer MEDICARE, MEDICAID ==
[2018-12-24] MEDS ORDERED: Lorazepam 1 MG TAB ONE (14:17)
== END 2018-12-24 15:18 | disposition home or self-care (01) ==
LOC: ERS 12:30
DX: F41.9 Anxiety disorder, unspecified (principal); E11.9 Type 2 diabetes mellitus without complications; I10 Essential (primary) hypertension
CPT/HCPCS: 99283

== ENCOUNTER 2018-12-26 10:10 | Emergency (ER) | payer MEDICARE, MEDICAID ==
[2018-12-26 11:11] LABS: #Eosinphils 0.1 thou/uL (0.0-0.7); #Lymphocytes 1.3 thou/uL (1.20-3.40); #Monocytes 0.5 thou/uL (0.11-0.59); #Neutrophils 4.5 thou/uL (1.40-6.50); %Basophils 0.3 % (0.0-1.0); %Eosinophils 0.9 % (0.0-10.0); %Lymphocytes 19.9 % (21.0-51.0); %Monocytes 7.8 % (0.0-10.0); Hemoglobin 10.6 g/dL (12.0-16.0); Mean Corpuscular HGB CONC 32.9 g/dL (32.0-36.0); Mean Corpuscular Hemoglobin 30.4 pg (27.0-31.0); Mean Corpuscular Volume 92.3 fL (78.0-98.0); Mean Platelet Volume 7.8 fL (7.4-10.4); Platelet Count 187 thou/uL (130-400); RBC Distribution Width 12.3 % (11.5-14.5); Red Blood Cell (RBC) Count 3.48 mill/uL (4.20-5.40); White Blood Cell (WBC) Count 6.3 thou/uL (4.8-10.8)
[2018-12-26] MEDS ORDERED: Lorazepam 2 MG/ML VIAL ONE (11:14)
[2018-12-26 11:35] LABS: ALT (SGPT) 9 U/L (8-55); AST (SGOT) 14 U/L (5-34); Acetaminophen Less than 6.0 mcg/mL (10.0-30.0); Albumin 3.8 g/dL (3.5-5.0); Alcohol Less than 10 mg/dL (Less than 10); Alkaline Phosphatase 63 U/L (40-150); Anion Gap 12 mmol/L (10-20); BUN (Urea Nitrogen) 9 mg/dL (9.8-20.1); Bilirubin, Total 0.3 mg/dL (0.2-1.2); CK (CPK) 68 U/L (29-168); Calc. Creatinine Clearance 0 mL/min (70-130); Calcium 9.4 mg/dL (7.8-10.44); Carbon Dioxide 26 mmol/L (22-29); Chloride 104 mmol/L (98-107); Estimated GFR-MDRD Greater than 90; Globulin 3.8 g/dL (2.4-3.5); Glucose 112 mg/dL (70-105); Potassium 3.6 mmol/L (3.5-5.1); Protein, Total 7.6 g/dL (6.0-8.3); Salicylate Less than 8.0 mg/dL (15.0-30.0); Sodium 138 mmol/L (136-145)
[2018-12-26 11:46] LABS: Bilirubin Negative (Negative); Blood, Urine Moderate (Negative); Clarity CLEAR (Clear); Glucose, Urine (Dipstick) Negative (Negative); Leukocyte Moderate (Negative); Nitrite Negative (Negative); Protein, Urine (Dipstick) Negative (Neg-Trace); Specific Gravity, Urine 1.014 (1.002-1.036); pH, Urine 6.5 (5.0-9.0)
[2018-12-26 11:47] LABS: Bacteria/HPF None Seen HPF (None Seen); Hyaline Casts/LPF 0-3 HYALINE CAST LPF (0-3 Hyaline); Pathc Cast-AUWi Flag 0.54 (0-2.49); Squamous Epithelial 0-3 HPF (0-3)
[2018-12-26 11:56] LABS: Amphetamine Not Detected (NotDetected); Barbiturates Screen Not Detected (NotDetected); Benzodiazepine Screen Detected (NotDetected); Cocaine Metabolite Screen Not Detected (NotDetected); Medtox Control Line Valid? VALID (VALID); Medtox Reader # READER 4; Methadone Not Detected (NotDetected); Methamphetamine Not Detected (NotDetected); Opiate Screen Detected (NotDetected); Oxycodone Screen Not Detected (NotDetected); Phencyclidine (PCP) Not Detected (NotDetected); THC/Cannabinoid Screen Not Detected (NotDetected); Tricyclic Screen Not Detected (NotDetected)
== END 2018-12-26 15:02 | disposition home or self-care (01) ==
LOC: ERS 10:10
DX: F41.9 Anxiety disorder, unspecified (principal); E11.9 Type 2 diabetes mellitus without complications; I10 Essential (primary) hypertension
CPT/HCPCS: 36415; 80053; 80306; 80307; 81003; 81015; 82550; 84443; 85025; 93005; 96374; J2060

== ENCOUNTER 2019-01-24 04:43 | Emergency (ER) | payer MEDICARE, MEDICAID ==
[2019-01-24 05:44] LABS: #Basophils 0.1 thou/uL (0.0-0.2); #Monocytes 0.8 thou/uL (0.11-0.59); #Neutrophils 5.9 thou/uL (1.40-6.50); %Basophils 0.7 % (0.0-1.0); %Eosinophils 0.5 % (0.0-10.0); %Lymphocytes 13.1 % (21.0-51.0); %Neutrophils 75.7 % (42.0-75.0); Hemoglobin 11.4 g/dL (12.0-16.0); Mean Corpuscular Volume 93.7 fL (78.0-98.0); Mean Platelet Volume 8.5 fL (7.4-10.4); Platelet Count 149 thou/uL (130-400); RBC Distribution Width 12.4 % (11.5-14.5); White Blood Cell (WBC) Count 7.8 thou/uL (4.8-10.8)
[2019-01-24 06:01] LABS: ALT (SGPT) 15 U/L (8-55); AST (SGOT) 21 U/L (5-34); Albumin 3.7 g/dL (3.5-5.0); Alkaline Phosphatase 65 U/L (40-150); Anion Gap 16 mmol/L (10-20); BUN (Urea Nitrogen) 10 mg/dL (9.8-20.1); Bilirubin, Total 0.6 mg/dL (0.2-1.2); CK (CPK) 245 U/L (29-168); Calc. Creatinine Clearance 0 mL/min (70-130); Calcium 9.5 mg/dL (7.8-10.44); Carbon Dioxide 22 mmol/L (22-29); Chloride 100 mmol/L (98-107); Estimated GFR-MDRD Greater than 90; Glucose 107 mg/dL (70-105); Potassium 3.9 mmol/L (3.5-5.1); Protein, Total 7.7 g/dL (6.0-8.3); Sodium 134 mmol/L (136-145)
[2019-01-24 07:10] LABS: Bilirubin Moderate (Negative); Blood, Urine Negative (Negative); Clarity CLEAR (Clear); Glucose, Urine (Dipstick) Negative (Negative); Leukocyte Negative (Negative); Nitrite Negative (Negative); Protein, Urine (Dipstick) Trace mg/dL (Neg-Trace); Specific Gravity, Urine 1.024 (1.002-1.036)
[2019-01-24] MEDS ORDERED: HYDROcodone/Acetaminophen 10/325 mg Tablet ONE (07:23)
== END 2019-01-24 08:21 | disposition home or self-care (01) ==
LOC: ERS 04:43
DX: M79.10 Myalgia, unspecified site (principal); C79.81 Secondary malignant neoplasm of breast; E11.9 Type 2 diabetes mellitus without complications; I10 Essential (primary) hypertension; F41.9 Anxiety disorder, unspecified
CPT/HCPCS: 36415; 51701; 80053; 81003; 82550; 84484; 85025; 93005; A4353

== ENCOUNTER 2019-04-06 07:06 | Emergency (ER) | payer MEDICARE, MEDICAID ==
[2019-04-06 08:42] LABS: #Lymphocytes 1.4 thou/uL (1.20-3.40); #Monocytes 0.7 thou/uL (0.11-0.59); #Neutrophils 3.3 thou/uL (1.40-6.50); %Basophils 0.5 % (0.0-1.0); %Eosinophils 0.7 % (0.0-10.0); %Lymphocytes 25.3 % (21.0-51.0); %Monocytes 12.8 % (0.0-10.0); %Neutrophils 60.8 % (42.0-75.0); Hemoglobin 10.9 g/dL (12.0-16.0); Mean Corpuscular HGB CONC 32.6 g/dL (32.0-36.0); Mean Platelet Volume 7.5 fL (7.4-10.4); Platelet Count 241 thou/uL (130-400); RBC Distribution Width 13.6 % (11.5-14.5); Red Blood Cell (RBC) Count 3.77 mill/uL (4.20-5.40); White Blood Cell (WBC) Count 5.4 thou/uL (4.8-10.8)
[2019-04-06 09:04] LABS: ALT (SGPT) 16 U/L (8-55); AST (SGOT) 17 U/L (5-34); Albumin 3.3 g/dL (3.5-5.0); Alkaline Phosphatase 69 U/L (40-150); Anion Gap 14 mmol/L (10-20); BUN (Urea Nitrogen) 4 mg/dL (9.8-20.1); Bilirubin, Total 0.5 mg/dL (0.2-1.2); Calc. Creatinine Clearance 0 mL/min (70-130); Calcium 9.3 mg/dL (7.8-10.44); Carbon Dioxide 24 mmol/L (22-29); Chloride 100 mmol/L (98-107); Estimated GFR-MDRD Greater than 90; Globulin 3.8 g/dL (2.4-3.5); Glucose 111 mg/dL (70-105); Lipase 8 U/L (8-78); Potassium 3.3 mmol/L (3.5-5.1); Protein, Total 7.1 g/dL (6.0-8.3); Sodium 135 mmol/L (136-145)
[2019-04-06 09:24] LABS: Bilirubin Negative (Negative); Blood, Urine Trace (Negative); Clarity Clear (Clear); Glucose, Urine (Dipstick) Negative (Negative); Leukocyte Trace (Negative); Nitrite Negative (Negative); Protein, Urine (Dipstick) Negative (Neg-Trace); Urobilinogen 0.2 mg/dL (0.2-1.0); pH, Urine 8.5 (5.0-9.0)
[2019-04-06 09:34] LABS: RBC/HPF 0-3 HPF (0-3); WBC/HPF 0-3 HPF (0-3)
[2019-04-06 09:35] LABS: Bacteria/HPF None Seen HPF (None Seen); Hyaline Casts/LPF NONE SEEN LPF (0-3 Hyaline)
[2019-04-06] MEDS ORDERED: Potassium Chloride 20 MEQ TAB ONE (10:07)
== END 2019-04-06 10:47 | disposition home or self-care (01) ==
LOC: ERS 07:06
DX: G89.3 Neoplasm related pain (acute) (chronic) (principal); C50.911 Malignant neoplasm of unspecified site of right female breast; C78.02 Secondary malignant neoplasm of left lung; C78.01 Secondary malignant neoplasm of right lung; E11.9 Type 2 diabetes mellitus without complications; I10 Essential (primary) hypertension; F41.9 Anxiety disorder, unspecified
CPT/HCPCS: 36415; 80053; 81003; 81015; 83690; 85025; 87086; 99284; J1642

== ENCOUNTER 2019-04-13 17:36 | Inpatient (IN) | payer MEDICARE, MEDICAID ==
[2019-04-13 19:03] LABS: #Basophils 0.1 thou/uL (0.0-0.2); #Eosinphils 0.2 thou/uL (0.0-0.7); #Lymphocytes 2.3 thou/uL (1.20-3.40); #Monocytes 1.2 thou/uL (0.11-0.59); %Basophils 0.7 % (0.0-1.0); %Eosinophils 1.4 % (0.0-10.0); %Lymphocytes 21.6 % (21.0-51.0); %Monocytes 11.4 % (0.0-10.0); %Neutrophils 64.9 % (42.0-75.0); Hemoglobin 11.4 g/dL (12.0-16.0); Mean Corpuscular HGB CONC 33.1 g/dL (32.0-36.0); Mean Corpuscular Hemoglobin 29.9 pg (27.0-31.0); Mean Corpuscular Volume 90.2 fL (78.0-98.0); Platelet Count 305 thou/uL (130-400); RBC Distribution Width 14.4 % (11.5-14.5); Red Blood Cell (RBC) Count 3.81 mill/uL (4.20-5.40); White Blood Cell (WBC) Count 10.8 thou/uL (4.8-10.8)
[2019-04-13] MEDS ORDERED: Morphine 4 MG/ML VIAL ONE (19:11)
[2019-04-13] MEDS ORDERED: Ondansetron PF 4 MG/2 ML Vial ONE (19:12)
[2019-04-13 19:24] LABS: ALT (SGPT) 14 U/L (8-55); AST (SGOT) 15 U/L (5-34); Albumin 3.2 g/dL (3.5-5.0); Alkaline Phosphatase 72 U/L (40-150); Anion Gap 15 mmol/L (10-20); BUN (Urea Nitrogen) 7 mg/dL (9.8-20.1); Bilirubin, Total 0.5 mg/dL (0.2-1.2); Calc. Creatinine Clearance 0 mL/min (70-130); Calcium 8.6 mg/dL (7.8-10.44); Carbon Dioxide 19 mmol/L (22-29); Chloride 102 mmol/L (98-107); Estimated GFR-MDRD Greater than 90; Globulin 3.4 g/dL (2.4-3.5); Glucose 79 mg/dL (70-105); Protein, Total 6.6 g/dL (6.0-8.3); Sodium 133 mmol/L (136-145)
[2019-04-13 19:31] LABS: Potassium 2.8 mmol/L (3.5-5.1)
[2019-04-13] MEDS ORDERED: Ondansetron PF 4 MG/2 ML Vial IVP PRN (21:48)
[2019-04-13] MEDS ORDERED: Acetaminophen 650 MG Suppository PR PRN (21:48)
[2019-04-13] MEDS ORDERED: Potassium Chloride 20 MEQ TAB PO SCH (22:00)
--- NOTE | 2019-04-13 23:42 | HP ---
PRIMARY CARE DOCTOR: Dr. Brwon. CHIEF COMPLAINT: Abdominal pain. HISTORY OF PRESENT ILLNESS: This is a 54-year-old female patient, past medical history of end-stage metastatic breast cancer. The patient came to the hospital, brought in due to chronic back pain, abdominal pain that was severe, started around 2 days ago with no clear triggers, no alleviating factors other than the known underlying metastatic breast cancer. The patient also reported some urinary symptoms and also associated with nausea and vomiting. The patient seems to be confused, unable to give a full story and review of systems. She is known to have metastatic brain cancer. REVIEW OF SYSTEMS: The patient is unable to give complete review of systems due to confusion. However, she mainly reported abdominal pain and the symptoms described in HPI and generalized weakness. No other significant findings reported. PAST MEDICAL HISTORY: Positive for diabetes type 2, hypertension, right breast cancer, status post surgery and chemo/radiation in December 2017, last chemo in July 2017 with metastasis to lung, brain cancer, status post radiation treatment. PAST SURGICAL HISTORY: Cholecystectomy, hysterectomy, mastectomy, implant of the right breast, orthopedic surgery, left ankle, MediPort placement, right lung surgery, bladder surgery, hernia repair x2. PSYCHIATRIC HISTORY: Includes anxiety. SOCIAL HISTORY: No alcohol, no drugs no smoking history. FAMILY HISTORY: Coronary artery disease, diabetes, hypertension. KNOWN ALLERGIES: Gadolinium. No other drug allergies. REPORTED MEDICATIONS: Unknown. PHYSICAL EXAMINATION: VITAL SIGNS: Blood pressure 140/93 with heart rate 96, respiratory rate 19, temperature 99, pain 10/10, oxygen saturation was 99% on room air. GENERAL: The patient is confused, not in any acute distress. HEENT: Eyes, normal conjunctivae. Dry oral mucosa. Anicteric. No JVD. RESPIRATORY: Bilateral air entry. No rales. No wheezes. Symmetric expansion. CARDIOVASCULAR: Normal rate, regular rhythm. No murmurs. No gallop. No edema. ABDOMEN: Soft, normal bowel sounds. MUSCULOSKELETAL: Baseline range of motion and strength. SKIN: Warm, intact. No pallor. No rash. No redness. Capillary refill seems to be intact. NEURO: The patient is confused, unable to fully explore. The patient has left-sided weakness. PSYCH: The patient is confused, unable to fully explore. LABORATORY DATA: Reviewed. The patient has white count 10.8, hemoglobin 11.4, hematocrit 34.4, platelet count 305. Chemistry; sodium 133, potassium 2.8, chloride 102, carbon dioxide 19, anion gap 15, BUN 7, creatinine 0.75, GFR greater than 90, glucose 79, calcium 8.6. Total bilirubin 0.5, AST 15, ALT 14, alkaline phosphatase 72. Serum total protein 6.6, albumin 3.2, globulin 3.4, albumin globulin ratio 0.9. ASSESSMENT AND PLAN: The patient will be placed in the hospital with following medical problems. 1. Severe abdominal pain. The patient needs p.o. medication. It seems that the patient has had some social problems at home. The patient has not been prescribed any more opioid medications because the patient has nobody to take care of her and her medications have been sold in the street by the family. For that reason, Dr. Tay has refused to give any further prescription to the patient. The patient will need returned case inspectormanager market research and safety for discharge. 2. Metastatic breast cancer leading to acute encephalopathy. Treatment as per Dr. Tay. We will need hospice/palliative care consultation for any further management. 3. Metastatic breast cancer. Treatment as above. 4. Hyponatremia, sodium 133. This is mild, we will monitor, we will treat accordingly. 5. Hypokalemia, potassium 2.8. This is moderate. We will replace electrolytes as needed. 6. Deep venous thrombosis prophylaxis. Job ID: [id number]
[2019-04-14 02:15] VITALS: BMI 31.8
[2019-04-14] MEDS: Morphine 4 MG/ML VIAL SLOW IVP PRN ×3 (04:30→20:19)
[2019-04-14 05:40] LABS: #Eosinphils 0.2 thou/uL (0.0-0.7); #Monocytes 0.9 thou/uL (0.11-0.59); #Neutrophils 4.7 thou/uL (1.40-6.50); %Basophils 0.2 % (0.0-1.0); %Eosinophils 2.6 % (0.0-10.0); %Lymphocytes 25.9 % (21.0-51.0); %Monocytes 11.2 % (0.0-10.0); Hemoglobin 10.9 g/dL (12.0-16.0); Mean Corpuscular HGB CONC 32.6 g/dL (32.0-36.0); Mean Corpuscular Hemoglobin 29.1 pg (27.0-31.0); Mean Corpuscular Volume 89.4 fL (78.0-98.0); Mean Platelet Volume 6.7 fL (7.4-10.4); Platelet Count 268 thou/uL (130-400); RBC Distribution Width 14.2 % (11.5-14.5); Red Blood Cell (RBC) Count 3.75 mill/uL (4.20-5.40); White Blood Cell (WBC) Count 7.8 thou/uL (4.8-10.8)
[2019-04-14] MEDS ORDERED: Furosemide 40 MG/4 ML VIAL SLOW IVP SCH (06:00)
[2019-04-14 06:04] LABS: Anion Gap 9 mmol/L (10-20); BUN (Urea Nitrogen) 6 mg/dL (9.8-20.1); Calc. Creatinine Clearance 119 mL/min (70-130); Calcium 8.7 mg/dL (7.8-10.44); Carbon Dioxide 26 mmol/L (22-29); Chloride 102 mmol/L (98-107); Estimated GFR-MDRD Greater than 90; Glucose 102 mg/dL (70-105); Sodium 134 mmol/L (136-145)
[2019-04-14 06:07] LABS: Potassium 2.9 mmol/L (3.5-5.1)
[2019-04-14] MEDS: Enoxaparin Sodium 40 MG/0.4 ML SYRINGE SC SCH (08:09)
[2019-04-14] MEDS: Potassium Chloride 20 MEQ TAB PO SCH ×3 (08:09→18:38)
--- NOTE | 2019-04-14 14:19 | PRG ---
DATE OF SERVICE: 04/14/2019 SUBJECTIVE: Ms. Neff is an unfortunate 54-year-old female with past medical history significant for metastatic breast cancer with known metastases to the brain and to the bone, diabetes mellitus, and hypertension, who presented to the hospital with complaints of worsening abdominal pain. At this time, the patient continues to complain of some mild abdominal discomfort that is relieved by morphine. She has been seen with Palliative Care and has agreed to readmission to hospice. The patient denies any chest pain or shortness of breath. She has no nausea at this time. No other complaints. OBJECTIVE: VITAL SIGNS: Blood pressure 121/85, pulse is 92, O2 saturation is 97% on room air, respirations 15, and temperature 98.2. GENERAL: The patient is a mildly obese, female, resting comfortably in bed. HEENT: Head is atraumatic and normocephalic. NECK: Supple. Trachea is midline. No obvious JVD. CV: S1 and S2, regular rhythm. No appreciable murmurs, rubs, or gallops. LUNGS: Regular respiratory rate and pattern. No wheezes, rhonchi, or crackles noted. ABDOMEN: Positive bowel sounds. Nontender on my exam. EXTREMITIES: No edema. SKIN: Warm and dry. LABORATORY DATA: Hemoglobin 10.9, hematocrit 33.5, white blood cell count 7.8, platelets are 268. Sodium 134, potassium 2.9, chloride 102, carbon dioxide 26, creatinine 0.66, GFR greater than 90. AST, ALT, and alkaline phosphatase all within normal limits. ASSESSMENT: 1. Metastatic breast cancer with known mets to the brain and bones. 2. Chronic pain secondary to above. 3. Severe hypokalemia. 4. Type 2 diabetes mellitus. 5. Hypertension. 6. Hyperlipidemia. PLAN: The patient has had some social issues as far as being able to receive pain medications at home, per records presumably because her family takes these medications from her. In any case, she has been evaluated with Palliative Care, and the plan is for home health care at a detention facility, and referrals have been made to both [facility]. We will continue to replete the patient's potassium, and recheck later this afternoon. Continue pain control, and we will add her home medications of p.r.tyrone Dubose as well. Job ID: [id number]
[2019-04-14 17:14] LABS: Anion Gap 12 mmol/L (10-20); BUN (Urea Nitrogen) 5 mg/dL (9.8-20.1); Calc. Creatinine Clearance 109 mL/min (70-130); Calcium 8.5 mg/dL (7.8-10.44); Carbon Dioxide 25 mmol/L (22-29); Chloride 104 mmol/L (98-107); Estimated GFR-MDRD Greater than 90; Glucose 103 mg/dL (70-105); Potassium 3.9 mmol/L (3.5-5.1); Sodium 137 mmol/L (136-145)
[2019-04-14] MEDS ORDERED: Sterile Water 10 ML VIAL IVP SCH (18:38)
[2019-04-14] MEDS ORDERED: Activase 2 MG VIAL CATH SCH (18:38)
[2019-04-14] MEDS: FLUoxetine HCl 20 MG CAP PO SCH (20:20)
[2019-04-14] MEDS: diphenhydrAMINE 25 MG CAP PO PRN (23:19)
[2019-04-15] MEDS: Morphine 4 MG/ML VIAL SLOW IVP PRN ×4 (01:36→15:31)
[2019-04-15] MEDS: Potassium Chloride 20 MEQ TAB PO SCH (01:37)
[2019-04-15] MEDS: Metoclopramide HCl 10 MG TAB PO PRN ×3 (01:37→17:14)
[2019-04-15] MEDS: diphenhydrAMINE 25 MG CAP PO PRN ×2 (05:22→10:58)
[2019-04-15] MEDS: FLUoxetine HCl 20 MG CAP PO SCH ×2 (08:20→20:07)
[2019-04-15] MEDS: Enoxaparin Sodium 40 MG/0.4 ML SYRINGE SC SCH (08:20)
[2019-04-15] MEDS: Lorazepam 1 MG TAB PO PRN ×2 (09:32→17:14)
[2019-04-15] MEDS ORDERED: Polyethylene Glycol 3350 17 GM Packet PO PRN (09:52)
[2019-04-15] MEDS ORDERED: Polyethylene Glycol 3350 17 GM Packet PO SCH (10:00)
[2019-04-15] MEDS: Ondansetron ODT 4 MG TAB PO PRN (10:58)
--- NOTE | 2019-04-15 14:46 | PRG ---
DATE OF SERVICE: 04/15/2019 SUBJECTIVE: Ms. Neff is an unfortunate 54-year-old -[place] female with past medical history significant for metastatic breast cancer with known metastases to the brains into the bone, diabetes mellitus, and hypertension, who presented to the hospital with complaints of worsening abdominal pain. At this time, the patient denies any chest pain or shortness of breath. She does complain of some anxiety. She has no nausea or vomiting and ate her full breakfast. She has some mild abdominal discomfort, and does also complain of constipation. She is awaiting placement at [place] or [facility] with hospice care. OBJECTIVE: VITAL SIGNS: Blood pressure 107/74, pulse is 90, O2 saturation is 98% on room air, respirations 16, and temperature 98.1. GENERAL: The patient is a mildly obese -[place] female, resting comfortably in bed. HEENT: Head is atraumatic and normocephalic. NECK: Supple. Trachea is midline. No obvious JVD. CV: S1 and S2. Regular rhythm. No appreciable murmurs, rubs, or gallops. LUNGS: Regular respiratory rate and pattern. No wheezes, rhonchi, or crackles noted. ABDOMEN: Positive bowel sounds. Nontender. EXTREMITIES: No edema. SKIN: Warm and dry. LABORATORY DATA: Sodium 137, potassium 3.9, chloride 104, carbon dioxide 25, anion gap 12, BUN 5, creatinine 0.72, GFR greater than 90. ASSESSMENT: 1. Metastatic breast cancer with known mets to the bones into the brain, with some mild cognitive deficit. 2. Chronic pain secondary to above. 3. Severe hypokalemia on presentation, resolved. 4. Type 2 diabetes mellitus. 5. Hypertension. 6. Hyperlipidemia. 7. Constipation. PLAN: At this time, we are awaiting placement and acceptance at either [facility] or [place] with hospice care for the patient. There are some social issues at home, which precludes her from being able to have access to opioids at home as family members take them from her. In any case, we will continue to control her pain here, the patient does complain of constipation and we will add MiraLAX daily to her regimen. As mentioned, awaiting placement at this time. Job ID: [id number]
[2019-04-15] MEDS ORDERED: guaiFENesin ER 600 MG TAB PO PRN (17:23)
--- NOTE | 2019-04-15 18:14 | PDOC.EVN ---
Event Note - Event Note Event Note: Nursing called to say patient had not voided since noon. Will in and out cath; If patient continues to retain, will place [facility]. Patient has been voiding regularly until noon today.
[2019-04-15] MEDS ORDERED: Sodium Chloride 0.9% 500 ML IV SCH (23:59)
[2019-04-16] MEDS ORDERED: Fentanyl 100 MCG/2 ML VIAL SLOW IVP PRN (00:45)
[2019-04-16 02:12] LABS: Bilirubin Negative (Negative); Blood, Urine Negative (Negative); Clarity Clear (Clear); Glucose, Urine (Dipstick) Normal (Negative); Leukocyte Negative Leu/uL (Negative); Nitrite Negative (Negative); Protein, Urine (Dipstick) Negative (Neg-Trace); RBC/HPF 0-3 HPF (0-3); Urobilinogen Normal mg/dL (Less than 2); WBC/HPF 0-3 HPF (0-3)
[2019-04-16 02:15] LABS: Urine Culture Reflex No No
[2019-04-16] MEDS ORDERED: Diabetic Tussin 200 MG/10 ML UDCUP PO PRN (04:27)
[2019-04-16] MEDS ORDERED: Cepastat Lozenges 1 LOZ PO PRN (04:27)
[2019-04-16] MEDS ORDERED: Benzonatate 100 MG CAP PO PRN (04:27)
[2019-04-16] MEDS: Morphine 4 MG/ML VIAL SLOW IVP PRN ×3 (05:56→13:56)
[2019-04-16] MEDS: Enoxaparin Sodium 40 MG/0.4 ML SYRINGE SC SCH (09:09)
[2019-04-16] MEDS: Acetaminophen 325 MG TAB PO PRN (09:09)
[2019-04-16] MEDS: FLUoxetine HCl 20 MG CAP PO SCH ×2 (09:09→20:43)
[2019-04-16] MEDS: guaiFENesin ER 600 MG TAB PO SCH ×2 (09:09→20:42)
[2019-04-16] MEDS: Lorazepam 1 MG TAB PO PRN (15:11)
[2019-04-16] MEDS ORDERED: Senokot S 8.6-50 MG TAB PO PRN (16:25)
[2019-04-16] MEDS: Morphine IR Tab 15 MG TAB PO PRN ×2 (16:28→23:59)
[2019-04-16] MEDS ORDERED: Polyethylene Glycol 3350 17 GM Packet PO SCH (16:30)
--- NOTE | 2019-04-16 17:03 | PRG ---
DATE OF SERVICE: 04/16/2019 SUBJECTIVE: Ms. Neff is a 54-year-old female with past medical history significant for metastatic breast cancer with known metastases to the brain and to the bone, diabetes mellitus, and hypertension, who presented to the hospital with complaints of abdominal pain. At this time, the patient denies any chest pain or shortness of breath. She does continue to complain of anxiety. She has had no nausea or vomiting. She complains of abdominal discomfort, which is improved with morphine. She also has diffuse bone and joint pain, which is also relieved with morphine. She does complain of constipation. She is awaiting placement at [place] or [facility] with hospice care. OBJECTIVE: VITAL SIGNS: Blood pressure 117/83, pulse is in the 90s, O2 saturation is 98% on room air. The patient is afebrile. GENERAL: The patient is a mildly obese female, lying in bed, no acute distress. HEENT: Head is atraumatic, normocephalic, positive for hair loss. Mucous membranes are moist. NECK: Supple. Trachea is midline. No obvious JVD. CV: S1 and S2. Regular rate and rhythm. No appreciable murmurs, rubs, or gallops. LUNGS: Regular respiratory rate and pattern. No wheezes, rhonchi, or crackles. ABDOMEN: Positive bowel sounds, nontender. EXTREMITIES: No edema. SKIN: Warm and dry. LABORATORY DATA: No new laboratory data today. ASSESSMENT: 1. Metastatic breast cancer with known metastases to the bones and the brain, with some mild cognitive deficit. 2. Chronic diffuse pain secondary to above. 3. Severe hypokalemia on presentation, resolved. 4. Type 2 diabetes mellitus. 5. Hypertension. 6. Hyperlipidemia. 7. Constipation. At this time, we are awaiting placement and acceptance at either [facility] or [place] with hospice care for this patient. She continues to require IV pain medication, and because of her intractable pain, she does meet inpatient criteria at this time. In addition to daily MiraLAX, we will add Senokot for her constipation. Due to her social issues at home, the patient is unable to procure opioid pain relief, as her family members have been known to take these medications from her, and [facility] has been called. We will continue to pursue her placement options as well with [facility]. Job ID: [id number]
[2019-04-16] MEDS: Metoclopramide HCl 10 MG TAB PO PRN (20:43)
[2019-04-16] MEDS: diphenhydrAMINE 25 MG CAP PO PRN (23:59)
[2019-04-17 04:35] LABS: Anion Gap 11 mmol/L (10-20); BUN (Urea Nitrogen) 6 mg/dL (9.8-20.1); Calc. Creatinine Clearance 115 mL/min (70-130); Calcium 9.6 mg/dL (7.8-10.44); Carbon Dioxide 26 mmol/L (22-29); Chloride 102 mmol/L (98-107); Estimated GFR-MDRD Greater than 90; Glucose 136 mg/dL (70-105); Potassium 4.2 mmol/L (3.5-5.1); Sodium 135 mmol/L (136-145)
[2019-04-17] MEDS: Morphine IR Tab 15 MG TAB PO PRN ×2 (07:16→13:29)
[2019-04-17] MEDS: Polyethylene Glycol 3350 17 GM Packet PO SCH (08:15)
[2019-04-17] MEDS: Enoxaparin Sodium 40 MG/0.4 ML SYRINGE SC SCH (08:15)
[2019-04-17] MEDS: FLUoxetine HCl 20 MG CAP PO SCH ×2 (08:15→21:00)
[2019-04-17] MEDS: guaiFENesin ER 600 MG TAB PO SCH ×2 (08:16→21:00)
[2019-04-17] MEDS: Lorazepam 1 MG TAB PO PRN (08:16)
[2019-04-17] MEDS: Metoclopramide HCl 10 MG TAB PO PRN (10:22)
[2019-04-17] MEDS: diphenhydrAMINE 25 MG CAP PO PRN (10:22)
[2019-04-17] MEDS: Acetaminophen 325 MG TAB PO PRN (10:22)
[2019-04-17] MEDS ORDERED: Magnesium Citrate 300 ML BOT PO SCH (18:30)
--- NOTE | 2019-04-17 18:46 | PRG ---
DATE OF SERVICE: 04/17/2019 SUBJECTIVE: A 54-year-old female with metastatic breast cancer, presented with intractable abdominal pain. She continues to have abdominal discomfort that improves with IV morphine. She also has diffuse joint pains as well. She is currently waiting on placement. REVIEW OF SYSTEMS: She is constipated. No nausea, vomiting. No fever or chills reported. OBJECTIVE: VITAL SIGNS: Temperature 98.5, pulse rate of 110, respirations of 16, blood pressure 101/70, and O2 saturation 98% on room air. GENERAL: A 54-year-old female in mild distress due to abdominal discomfort. LUNGS: Clear to auscultation bilaterally. HEART: S1 and S2 present. Tachycardic. No heaves or pulsation. ABDOMEN: Soft. There is generalized tenderness on deep palpation. No rebound or guarding. No costovertebral angle tenderness. EXTREMITIES: No edema or calf tenderness. NEUROLOGY: Grossly nonfocal. Moves all 4 extremities. PSYCHIATRY: Alert, awake, and oriented x3. LAB FINDINGS: WBC 7.8 with hemoglobin 10.9, hematocrit 33.5, platelet 268. Sodium 135, potassium 4.2, chloride 102, bicarb 26, BUN 6, and creatinine 0.68. Urinalysis was negative for WBC bacteria. Echocardiogram showed ejection fraction of 60% to 65% with mild mitral regurgitation. IMPRESSION: 1. Generalized pain secondary to metastatic breast cancer. 2. Hypokalemia, corrected. 3. Diabetes mellitus type 2. 4. Hypertension. 5. Hyperlipidemia. 6. Constipation. 7. Dehydration on admission with metabolic acidosis, improved. 8. Obesity with a BMI of 31.8. 9. Chronic anemia. 10. Mild mitral regurgitation. PLAN: We will continue current pain medications including IV morphine as well as short-acting morphine as needed. She will probably benefit from long-acting morphine. She is awaiting placement. She is stable for discharge. We will continue Lovenox for DVT prophylaxis. Continue other home medications. Plan was discussed with the patient in detail. She stated understanding. Job ID: [id number]
[2019-04-17] MEDS: Senokot S 8.6-50 MG TAB PO SCH (21:00)
[2019-04-18] MEDS: FLUoxetine HCl 20 MG CAP PO SCH ×2 (00:34→09:22)
[2019-04-18] MEDS: guaiFENesin ER 600 MG TAB PO SCH ×2 (00:35→09:22)
[2019-04-18] MEDS: Senokot S 8.6-50 MG TAB PO SCH ×2 (00:35→09:23)
[2019-04-18] MEDS: Ondansetron ODT 4 MG TAB PO PRN (03:09)
[2019-04-18] MEDS ORDERED: Mag-Al 1200 mg/1200 mg/30 ML UDCUP PO SCH (03:15)
[2019-04-18] MEDS: Lorazepam 1 MG TAB PO PRN (03:19)
[2019-04-18] MEDS: Acetaminophen 325 MG TAB PO PRN (03:21)
[2019-04-18] MEDS: Morphine IR Tab 15 MG TAB PO PRN (05:35)
[2019-04-18 07:54] VITALS: BP 116/72; TEMP 98.5
[2019-04-18] MEDS ORDERED: Polyethylene Glycol 3350 17 GM Packet PO SCH (09:00)
[2019-04-18] MEDS ORDERED: Bisacodyl 10 MG SUPP PR SCH (09:00)
[2019-04-18] MEDS: Enoxaparin Sodium 40 MG/0.4 ML SYRINGE SC SCH (09:22)
[2019-04-18] MEDS: Polyethylene Glycol 3350 17 GM Packet PO SCH (09:22)
--- NOTE | 2019-04-19 04:34 | DIS ---
DATE OF ADMISSION: 04/16/2019 DATE OF DISCHARGE: 04/18/2019 DISCHARGE DISPOSITION: To [facility] with hospice. ALLERGIES: THE PATIENT IS ALLERGIC TO GADOLINIUM. DISCHARGE MEDICATIONS: Same as admission medications. PRN Tylenol, MiraLAX, as well as stool softeners were added. The patient was seen and examined on the day of discharge. Denies any new complaints. No chest pain, shortness of breath or palpitations reported. SIGNIFICANT LABORATORY DATA: Potassium on admission was 2.8, at discharge 4.2. WBC 10.8, hemoglobin 11.4. Urinalysis was negative for WBC bacteria. Echocardiogram showed left ventricular ejection fraction of 60% to 65% with mild mitral regurgitation. BRIEF HOSPITAL COURSE: The patient is a 54-year-old female with metastatic breast cancer who presented to the hospital with intractable abdominal pain. Please refer to the history and physical for further details. The patient was admitted to the hospital with intractable pain. She was started on IV narcotics with good improvement. Due to her advanced metastatic breast cancer, hospice was recommended. She has been accepted at [facility]. The pain is controlled on her home medications. She appears stable for discharge. She had significant constipation that improved with magnesium citrate. She was advised to take Senokot-S twice a day. FINAL DIAGNOSES: 1. Generalized pain secondary to advanced metastatic breast cancer. 2. Hypokalemia, corrected. 3. Significant constipation, resolved. 4. Diabetes mellitus type 2. 5. Hypertension. 6. Hyperlipidemia. 7. Dehydration, resolved. 8. Metabolic acidosis. 9. Obesity with BMI of 31.8. 10. Chronic anemia. 11. Mild mitral regurgitation. PLAN: Plan of care was discussed with the patient in detail, she stated understanding. Job ID: [id number]
== END 2019-04-18 11:41 | disposition hospice, inpatient (51) | DRG 598 ==
LOC: ERS 17:36 → SURG A 20:30 → ONC 04-15 18:24 → SURG A 04-15 18:28 → OBSVTOIN 04-16 14:44 → ONC 04-17 19:44
PROVIDERS: ADMIT Hospitalist; ATTEND Hospitalist
DX: C50.919 Malignant neoplasm of unspecified site of unspecified female breast (principal); G93.40 Encephalopathy, unspecified; E87.1 Hypo-osmolality and hyponatremia; C79.51 Secondary malignant neoplasm of bone; C79.31 Secondary malignant neoplasm of brain; E87.2 Acidosis; Z51.5 Encounter for palliative care; E87.6 Hypokalemia; E11.9 Type 2 diabetes mellitus without complications; I10 Essential (primary) hypertension; F41.9 Anxiety disorder, unspecified; E78.5 Hyperlipidemia, unspecified; G89.29 Other chronic pain; R41.89 Other symptoms and signs involving cognitive functions and awareness; K59.00 Constipation, unspecified; D64.9 Anemia, unspecified; I34.0 Nonrheumatic mitral (valve) insufficiency; E86.0 Dehydration; E66.9 Obesity, unspecified; Z92.21 Personal history of antineoplastic chemotherapy; Z92.3 Personal history of irradiation; Z90.49 Acquired absence of other specified parts of digestive tract; Z90.710 Acquired absence of both cervix and uterus; Z90.10 Acquired absence of unspecified breast and nipple; Z68.31 Body mass index [BMI] 31.0-31.9, adult; Z91.041 Radiographic dye allergy status
CPT/HCPCS: 36415; 36416; 80048; 80053; 81001; 85025; 93306; 96361; 96374; 96375; A4216; J1642; J1650; J2270; J2405; J2997; J3010; J8597; Q0162; Q0163